=== PATIENT | female | born 1990 | race Caucasian/White ===

== ENCOUNTER 2020-11-17 10:03 | Emergency (ER) | payer OTHER, SELFPAY ==
[2020-11-17 10:11] VITALS: BP 117/81; PULSE 113; RESP 16; TEMP 36.4; O2SAT 96; BMI 23.0
--- NOTE | 2020-11-17 10:19 | PC.NURSE ---
Per patient's boyfriend pt looked to be having a seizure this AM. had convulsions afterwards. states pt seemed slightly confused.
--- NOTE | 2020-11-17 10:26 | CT_ITS ---
EXAMINATION: HEAD CT AND CERVICAL SPINE CT WITHOUT CONTRAST CLINICAL INFORMATION: Seizure. Headache. Neck pain. Evaluate for bleed, fracture or mass. COMPARISON: None TECHNIQUE: Axial images through the brain and cervical spine without contrast. Sagittal and coronal reconstructions on the technologist workstation were performed. Patient dose 630+340 mgy/cm. FINDINGS: Head CT: There is no evidence of an extra-axial collection. There is no evidence of intra-axial or extra-axial hemorrhage. Ventricles and extra-axial CSF spaces are appropriate. Rose-white matter differentiation is normal. No mass, mass effect or infarct is seen. Review at bone windows is normal. No skull fracture is seen. Visualized paranasal sinuses, mastoid air cells and middle ears are clear. Cervical spine: There is head tilt to the left, curvature of the mid cervical spine to the right and proximal thoracic spine to the left. Bone alignment is otherwise normal. No fracture or dislocation is seen. 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 Disc spaces are otherwise normal. Prevertebral soft tissues are normal. Visualized apices are clear. CT/CT head/brain wo con IMPRESSION: Head CT: Unremarkable exam. Cervical spine CT: Curvature of the cervical and thoracic spine. 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 No fracture or dislocation seen.
--- NOTE | 2020-11-17 10:26 | CT_ITS ---
EXAMINATION: HEAD CT AND CERVICAL SPINE CT WITHOUT CONTRAST CLINICAL INFORMATION: Seizure. Headache. Neck pain. Evaluate for bleed, fracture or mass. COMPARISON: None TECHNIQUE: Axial images through the brain and cervical spine without contrast. Sagittal and coronal reconstructions on the technologist workstation were performed. Patient dose 630+340 mgy/cm. FINDINGS: Head CT: There is no evidence of an extra-axial collection. There is no evidence of intra-axial or extra-axial hemorrhage. Ventricles and extra-axial CSF spaces are appropriate. Rose-white matter differentiation is normal. No mass, mass effect or infarct is seen. Review at bone windows is normal. No skull fracture is seen. Visualized paranasal sinuses, mastoid air cells and middle ears are clear. Cervical spine: There is head tilt to the left, curvature of the mid cervical spine to the right and proximal thoracic spine to the left. Bone alignment is otherwise normal. No fracture or dislocation is seen. 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 Disc spaces are otherwise normal. Prevertebral soft tissues are normal. Visualized apices are clear. CT/CT cervical spine wo con IMPRESSION: Head CT: Unremarkable exam. Cervical spine CT: Curvature of the cervical and thoracic spine. 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 No fracture or dislocation seen.
--- NOTE | 2020-11-17 10:29 | ECG_ITS ---
Test Reason : WEAKNESS Blood Pressure : / mmHG Vent. Rate : 088 BPM Atrial Rate : 088 BPM P-R Int : 114 ms QRS Dur : 090 ms QT Int : 374 ms P-R-T Axes : 062 012 022 degrees QTc Int : 452 ms Normal sinus rhythm Normal ECG When compared with ECG of 16-APR-2018 15:40, Premature ventricular complexes are no longer Present Referred By: Abraham Alvarado Electronically Signed By:Nain Light
--- NOTE | 2020-11-17 10:30 | ED.GENADULT ---
HPI - General Adult General Chief complaint: Seizure Stated complaint: seizures Time Seen by Provider: 11/17/20 10:13 Source: patient and other (Boyfriend, Oumar) Mode of arrival: ambulatory Limitations: no limitations History of Present Illness HPI narrative: 30-year-old female who presents to the emergency department for evaluation of possible 2 seizures at home. The patient's boyfriend states that last night the patient was feeling very cold and wrapped herself up and heating blanket. He states that this morning he believes that she had a ?seizure fit ?which lasted approximately 30 seconds. She then got up and complained of a headache. She states that she has a pressure-like sensation in the back her head which is moderate in intensity. She states that she has had similar headaches in the past. She felt sick to her stomach and went to the bathroom. She was sitting on the bathroom floor and believes that she may have vomited. Her boyfriend states that he found her on the floor, unconscious shaking uncontrollably. He states that this shaking episode lasted approximately 30 seconds. The patient states she does have a seizure disorder but has not been taking medications for over a year. She cannot recall when she had her last seizure. The patient states that she was feeling ill last week and did have a negative COVID test 4 days prior. She denied fever, chills, cough, dyspnea on exertion, shortness of breaths, myalgias, arthralgias, diarrhea, numbness or weakness. She states she is currently having headache which is mild to moderate intensity and chest discomfort which she describes as a pressure sensation which is constant, [id number] in intensity. Related Data Previous Rx's Medication Instructions Recorded topiramate [Topamax] 50 mg PO BEDTIME 30 Days #30 tab 11/17/20 Allergies Allergy/AdvReac Type Severity Reaction Status Date / Time amoxicillin [AMOXICILLIN] Allergy Unknown HIVES Unverified 08/18/20 16:15 Review of Systems Review of Systems: Yes all other systems are reviewed and are negative Constitutional: Constitutional: Reports as per HPI Eyes: Eyes: Reports as per HPI ENT: Reports as per HPI Cardiovascular: Cardiovascular: Reports as per HPI Respiratory: Respiratory: Reports as per HPI Gastrointestinal: Gastrointestinal: Reports as per HPI Genitourinary: Genitourinary: Reports as per HPI Musculoskeletal: Musculoskeletal: Reports as per HPI Integumentary/Breasts: Skin/Breast: Reports as per HPI Neurologic: Reports as per HPI and Reports Abnormal speech present Psychiatric: Psychiatric: Reports as per HPI Allergic/Immunologic: Allergic/Immunologic: Reports as per HPI [facility] Past Medical History Attestation statement: The following information was validated with the patient. [facility] Narrative: The patient is allergic to amoxicillin, she does smoke cigarettes, she denies alcohol and drug use. Medical History Epilepsy Social History Social History Alcohol intake: never Smoking Status: Never smoker Use of substances other than those prescribed or required for medical reasons: No Advance Directives: No Advance Directives Information Provided: No Physical Exam Vital Signs: Vital Signs: Last Vital Signs Temp 97.6 F 11/17/20 10:11 Pulse 113 H 11/17/20 10:11 Resp 16 11/17/20 10:11 BP 117/81 11/17/20 10:11 Pulse Ox 96 11/17/20 10:11 Body Mass Index 23.0 Const: General: cooperative and healthy appearing Nutritional Appearance: average body habitus Orientation/consciousness: oriented to person and oriented to place Limitations: no limitations HENMT: Head: Yes normal to inspection, Yes normocephalic and Yes occipital foramen tenderness Ears: external ears normal General nose exam: Normal external nose present Face and sinus: Yes normal facial exam Mouth: Normal oral and palatal mucosa present Throat: Yes posterior oropharynx normal Eyes: General: appearance normal, both eyes and all related structures Alignment and Position: alignment normal Periorbital: periorbital findings normal Eyelids: Yes eyelids normal Conjunctivae: conjunctivae normal Sclerae: sclerae normal Pupils: Equal, round and reactive pupils present Direct Ophthalmoscopy: normal light reflex Neck: Neck: Yes normal visual inspection and Yes supple Thyroid: Thyroid normal Chest: Chest palpation & inspection: normal inspection of the chest and tenderness sternum (Moderate) Resp: Effort & Inspection: normal respiratory effort and able to speak in complete sentences Auscultation: clear to auscultation bilaterally, no crackles, no rales and no rhonchi Cardio: Rate: regular rate Rhythm: regular rhythm Heart sounds: S1 normal heart sound present, S2 normal heart sound present and no murmurs GI: Inspection: Yes normal to inspection Palpation (GI): Soft to palpation, nontender and no guarding Auscultation: normal bowel sounds : General: Yes no CVA tenderness Back/Spine/Pelvis: Back: no CVA tenderness Cervical Spine: normal cervical lordosis Thoracic/Lumbar Spine: thoracic and lumbar spine normal to inspection Skin: General skin exam: no rashes or lesions noted Lesions: no lesions Rashes: no rashes Trauma: no lacerations or abrasions Neuro: General: oriented to person and oriented to place Cranial nerves: Yes CN's II-XII intact bilaterally and Yes Equal, round and reactive pupils present Cognition (Neuro): normal cognition Speech: Abnormal speech present Motor exam (neuro): 5/5 motor strength present throughout Extrem: Right upper extremity: normal to inspection and full ROM Psych: Appearance: grossly normal and well kempt Mental Status: mental status grossly normal Speech and movement: Normal speech and movement present Affect: normal affect Attitude: cooperative Thought process: Normal thought process present Thought content: Normal thought content present Insight: Good insight present (Psych) Judgement: Good judgement present (Psych) Course Course Course Narrative: 30-year-old female who presents to the emergency department for evaluation of possible 2 seizures at home, nausea with vomiting x1, headache, neck pain and chest pain. Physical examination did reveal tenderness with palpation of the patient's occiput and cervical spine as well as tenderness to palpation or chest. Her neurologic exam is nonfocal. The patient may have had 2 seizures at home based on her boyfriend's description and she does have a known seizure disorder but is not taking medications. I did order a workup to include CBC, CMP, UA, EKG, CT of the head and cervical spine. I also obtained a 12 lead EKG on this patient. Patient was given Ativan 1 mg IV to try to prevent further seizures. She is also given Tylenol 975 mg orally for her headache and chest pain. Patient will also be treated with normal saline x1 L. 1154: The patient's laboratory evaluation was unremarkable. CT scan of the head and neck revealed no abnormalities. The patient is feeling better. The patient states that she was being treated by our neurologist, Dr. Matias with Topamax 50 mg at night for her seizure disorder but she has been off this medication for at least 1 year. Concerned the patient may have had 2 seizures today therefore will be prescribed this medication for her. The patient does not have a PCP and she will be referred to the on-call PCP. She was advised also to follow-up with her neurologist for evaluation. She was given printed instructions on seizures. She was advised to return emergency department if her symptoms get worse or if she feels any symptoms that are concerning to her. Medical Decision Making Lab Data Result diagrams: 11/17/20 10:52 11/17/20 10:52 Labs: Lab Results 11/17/20 11/17/20 Range/Units 10:52 10:52 WBC 9.4 (4.8-10.8) X10*3/uL RBC 4.87 (4.20-5.50) X10*6/uL Hgb 14.6 (12.0-16.0) g/dl Hct 42.5 (37-47) % MCV 87.3 (80-98) fL MCH 30.0 (27.0-33.0) pg MCHC 34.4 (31.0-35.0) g/dl RDW 12.2 (11.0-16.0) % Plt Count 232 (160-400) X10*3/uL MPV 10.5 (9.4-12.3) fL Immature Gran % (Auto) 0.3 (0.0-0.4) % Neut % (Auto) 80.8 H (45-73) % Lymph % (Auto) 11.8 L (20-40) % [place] % (Auto) 5.6 (2-11) % Eos % (Auto) 1.0 (0-4) % Baso % (Auto) 0.5 (0-2) % Lymph # (Auto) 1.1 L (1.2-4.9) X10*3/uL [place] # (Auto) 0.5 (0.1-1.2) X10*3/uL Eos # (Auto) 0.1 (0.0-0.4) X10*3/uL Baso # (Auto) 0.1 (0.0-0.2) X10*3/uL Abs Immat Gran (auto) 0.03 (0.00-0.03) X10*3/uL Absolute Neuts (auto) 7.6 (2.0-8.3) X10*3/uL Absolute Nucleated RBC 0.000 (0.0-0.012) X10*3/uL Nucleated RBC % (auto) 0.0 (0.0-0.2) /100WBC Sodium 137 (135-145) mmol/L Potassium 3.6 (3.3-5.1) mmol/l Chloride 104 (96-108) mmol/L Carbon Dioxide 26 (22-29) mmol/L Anion Gap 11 L (12-20) BUN 9 (9-16) mg/dL Creatinine 0.72 (0.5-1.4) mg/dL Estim Creat Clear Calc 93.6 Estimated GFR > 60 Random Glucose 108 (60-115) mg/dL Calcium 8.6 (8.4-10.2) mg/dL Total Bilirubin 0.5 (0.0-1.0) mg/dL AST 10 (5-31) U/L ALT 8 (0-31) U/L Alkaline Phosphatase 73 (39-117) U/L Total Protein 6.3 L (6.5-8.0) g/dL Albumin 3.9 (3.5-5.0) g/dL ECG Data Attestation: I personally reviewed and interpreted this ECG as follows: Prior ECG tracings: not available for review Interpretation: EKG time 10:29 a.m., normal sinus rhythm with a rate of 88, normal NV, QRS and QTC intervals, inverted T-wave in lead 3, no ST segment elevation, no ST segment depression, no old EKG for comparison, this is a normal EKG. Discharge Plan Discharge Clinical Impression: Epileptic seizure Qualifiers: Epilepsy type: generalized idiopathic Intractability: not intractable Status epilepticus: without status epilepticus Qualified Code(s): G40.309 - Generalized idiopathic epilepsy and epileptic syndromes, not intractable, without status epilepticus Vomiting Qualifiers: Vomiting type: unspecified Vomiting Intractability: non-intractable Nausea presence: with nausea Qualified Code(s): R11.2 - Nausea with vomiting, unspecified Patient Disposition: Home, Self-Care Instructions: Epilepsy (ED) Additional Instructions: Your blood work today was normal. Your CT scan of your head was normal. Your CT scan of the neck revealed no fractures or broken bones. I am concerned that you may have had 2 seizures today and you need to restart your anti seizure medications. I am starting you back on Topamax 50 mg at night. You need to follow-up with your neurologist, Dr. Matias for re-evaluation to determine if you need to be on a higher dose of Topamax. Also , you should follow up with our medical provider on-call within 2-3 days for re-evaluation. Please return to the emergency department if your symptoms get worse or if you develop any new symptoms that are concerning to you. Prescriptions: New topiramate [Topamax] 50 mg tablet 50 mg PO BEDTIME 30 Days Qty: 30 RF: 0 Referrals: Whit Marrero MD [Physician] - 2 days (Off Topamax for 1 year, two possible seizures today, workup negative, restarted Topamax 50 mg at night) Eric Alarcon MD [Physician] - 2 days
[2020-11-17 10:57] LABS: MANUAL DIFF FLAG NO
[2020-11-17] MEDS: Acetaminophen 325 MG TABLET 975 MG PO (10:57)
[2020-11-17] MEDS: LORazepam 2 MG/ML VIAL 1 MG IVPUSH (10:57)
[2020-11-17] MEDS: 0.9 % Sodium Chloride 1,000 ML 999 ML IV (10:57)
[2020-11-17 10:58] LABS: Basophils Absolute Auto 0.1 X10*3/uL (0.0-0.2); Basophils Percent Auto 0.5 % (0-2); Eosinophils Absolute Auto 0.1 X10*3/uL (0.0-0.4); Hematocrit 42.5 % (37-47); Hemoglobin 14.6 g/dl (12.0-16.0); Imm Gran Abs Auto 0.03 X10*3/uL (0.00-0.03); Imm Gran Pct Auto 0.3 % (0.0-0.4); Lymphocytes Absolute Auto 1.1 X10*3/uL (1.2-4.9); Lymphocytes Percent Auto 11.8 % (20-40); Mean Corpuscular HGB Conc 34.4 g/dl (31.0-35.0); Mean Corpuscular Volume 87.3 fL (80-98); Mean Platelet Volume 10.5 fL (9.4-12.3); Monocytes Absolute Auto 0.5 X10*3/uL (0.1-1.2); Monocytes Percent Auto 5.6 % (2-11); Neutrophils Absolute Auto 7.6 X10*3/uL (2.0-8.3); Neutrophils Percent Auto 80.8 % (45-73); Platelet Count 232 X10*3/uL (160-400); Red Blood Count 4.87 X10*6/uL (4.20-5.50); Red Cell Distribution Width 12.2 % (11.0-16.0); White Blood Count 9.4 X10*3/uL (4.8-10.8)
[2020-11-17 11:26] LABS: Alanine Aminotransferase 8 U/L (0-31); Albumin Level 3.9 g/dL (3.5-5.0); Alkaline Phosphatase 73 U/L (39-117); Anion Gap 11 (12-20); Aspartate Amino Transferase 10 U/L (5-31); Bilirubin Total 0.5 mg/dL (0.0-1.0); Blood Urea Nitrogen 9 mg/dL (9-16); Calcium 8.6 mg/dL (8.4-10.2); Carbon Dioxide 26 mmol/L (22-29); Chloride 104 mmol/L (96-108); Creatinine Clr Calc Pharmacy 93.6; Estimated Glomerular Filt Rate > 60; Glucose Random 108 mg/dL (60-115); Potassium 3.6 mmol/l (3.3-5.1); Sodium 137 mmol/L (135-145); Total Protein 6.3 g/dL (6.5-8.0)
== END 2020-11-17 12:20 | disposition home or self-care (01) ==
PROVIDERS: Emergency Provider Emergency Medicine Emergency Medical Services
DX: G40.309 Generalized idiopathic epilepsy and epileptic syndromes, not intractable, without status epilepticus (principal); R11.2 Nausea with vomiting, unspecified
CPT/HCPCS: 36415; 70450; 72125; 80053; 85025; 93005; 96361; 96374; 99283; 99284; J2060

== ENCOUNTER 2021-03-22 08:03 | Emergency (ER) | payer OTHER, SELFPAY ==
--- NOTE | ~2021-03-22 | CT_ITS ---
EXAMINATION: UNREMARKABLE CHEST EXAM. CLINICAL INFORMATION: Headache. Chest discomfort. COMPARISON: CT brain 11/17/2020 TECHNIQUE: 5 mm thin axial and reformatted 2 mm thin sagittal and coronal images of brain were obtained without contrast. DLP 545 FINDINGS: Brain: There is no acute intra-axial, extra-axial bleed, masses or midline shift. There is no acute infarction in evolution. The lateral ventricles are symmetrical in size and configuration without enlargement. The ronquillo to white matter differentiation is maintained normal. Bone windows reveal no calvarial abnormality. There is no scalp soft tissue abnormality. Bilateral paranasal sinuses and mastoid air cells are well-aerated. Chest x-ray: The lungs are hyperinflated but clear of acute process. The heart size and pulmonary vascularity is normal. No gross bony abnormality seen..] CT/CT head/brain wo con IMPRESSION: No acute intracranial process seen. Unremarkable chest exam.
[2021-03-22 08:21] VITALS: BP 129/76; PULSE 80; RESP 16; TEMP 36.6; O2SAT 98; BMI 23.3
--- NOTE | 2021-03-22 09:29 | ECG_ITS ---
Test Reason : HEADACHE Blood Pressure : / mmHG Vent. Rate : 079 BPM Atrial Rate : 079 BPM P-R Int : 104 ms QRS Dur : 086 ms QT Int : 364 ms P-R-T Axes : 056 032 043 degrees QTc Int : 417 ms Sinus rhythm with short NC Otherwise normal ECG When compared with ECG of 17-NOV-2020 10:29, No significant change was found Referred By: Alexandra Bryan Electronically Signed By:Nain Light
[2021-03-22 10:13] LABS: MANUAL DIFF FLAG NO
[2021-03-22 10:15] LABS: Basophils Absolute Auto 0.1 X10*3/uL (0.0-0.2); Basophils Percent Auto 0.8 % (0-2); Eosinophils Absolute Auto 0.1 X10*3/uL (0.0-0.4); Eosinophils Percent Auto 1.9 % (0-4); Hematocrit 47.7 % (37-47); Hemoglobin 15.8 g/dl (12.0-16.0); Imm Gran Abs Auto 0.02 X10*3/uL (0.00-0.03); Imm Gran Pct Auto 0.3 % (0.0-0.4); Lymphocytes Absolute Auto 1.8 X10*3/uL (1.2-4.9); Lymphocytes Percent Auto 23.6 % (20-40); Mean Corpuscular HGB Conc 33.1 g/dl (31.0-35.0); Mean Corpuscular Hemoglobin 29.6 pg (27.0-33.0); Mean Corpuscular Volume 89.5 fL (80-98); Mean Platelet Volume 11.3 fL (9.4-12.3); Monocytes Absolute Auto 0.7 X10*3/uL (0.1-1.2); Neutrophils Absolute Auto 4.8 X10*3/uL (2.0-8.3); Neutrophils Percent Auto 64.4 % (45-73); Platelet Count 258 X10*3/uL (160-400); Red Blood Count 5.33 X10*6/uL (4.20-5.50); Red Cell Distribution Width 12.2 % (11.0-16.0); White Blood Count 7.5 X10*3/uL (4.8-10.8)
[2021-03-22] MEDS: Butalb/Acetamin/Caff 50/325/40 TABLET 2 TAB PO (10:19)
[2021-03-22 10:31] LABS: INTERNATIONAL NORM RATIO 0.9 (0.9-1.1); Prothrombin Time 10.9 SEC (10.8-13.0)
[2021-03-22 10:34] LABS: D Dimer 223 NG/ML
--- NOTE | 2021-03-22 10:36 | PC.NURSE ---
EKG COMPLETED, IMAGING COMPLETED, BLOOD LABS OBTAINED AND SENT. MEDICATED PER EMAR, TOLERATING PO W/O ISSUE. LIGHTS TURNED DOWN D/T REPORTED PHOTOPHOBIA. PT IN NAD.
--- NOTE | 2021-03-22 10:47 | ED_ITS ---
HPI - General Adult General Chief complaint: General Medical Stated complaint: sinus pain Time Seen by Provider: 03/22/21 08:51 Source: patient Mode of arrival: ambulatory Limitations: no limitations Related Data Previous Rx's Medication Instructions Recorded topiramate [Topamax] 50 mg PO BEDTIME 30 Days #30 tab 11/17/20 Allergies Allergy/AdvReac Type Severity Reaction Status Date / Time amoxicillin [AMOXICILLIN] Allergy Unknown HIVES Verified 03/22/21 08:28 [facility] Past Medical History Medical History Epilepsy Social History Social History Alcohol intake: never Smoking Status: Never smoker Advance Directives: Yes Advance Directives Information Provided: No Advance Directives on File: No Physical Exam Vital Signs: Vital Signs: Last Vital Signs Temp 98 F 03/22/21 08:21 Pulse 80 03/22/21 08:21 Resp 16 03/22/21 08:21 BP 129/76 03/22/21 08:21 Pulse Ox 98 03/22/21 08:21 Body Mass Index 23.3 Medical Decision Making Lab Data Result diagrams: 03/22/21 10:06 03/22/21 10:06 Labs: Lab Results 03/22/21 03/22/21 03/22/21 Range/Units 10:05 10:06 10:06 WBC 7.5 (4.8-10.8) X10*3/uL RBC 5.33 (4.20-5.50) X10*6/uL Hgb 15.8 (12.0-16.0) g/dl Hct 47.7 H (37-47) % MCV 89.5 (80-98) fL MCH 29.6 (27.0-33.0) pg MCHC 33.1 (31.0-35.0) g/dl RDW 12.2 (11.0-16.0) % Plt Count 258 (160-400) X10*3/uL MPV 11.3 (9.4-12.3) fL Immature Gran % (Auto) 0.3 (0.0-0.4) % Neut % (Auto) 64.4 (45-73) % Lymph % (Auto) 23.6 (20-40) % [place] % (Auto) 9.0 (2-11) % Eos % (Auto) 1.9 (0-4) % Baso % (Auto) 0.8 (0-2) % Lymph # (Auto) 1.8 (1.2-4.9) X10*3/uL [place] # (Auto) 0.7 (0.1-1.2) X10*3/uL Eos # (Auto) 0.1 (0.0-0.4) X10*3/uL Baso # (Auto) 0.1 (0.0-0.2) X10*3/uL Abs Immat Gran (auto) 0.02 (0.00-0.03) X10*3/uL Absolute Neuts (auto) 4.8 (2.0-8.3) X10*3/uL Absolute Nucleated RBC 0.000 (0.0-0.012) X10*3/uL Nucleated RBC % (auto) 0.0 (0.0-0.2) /100WBC PT 10.9 (10.8-13.0) SEC INR 0.9 (0.9-1.1) D-Dimer 223 NG/ML Discharge Plan Discharge Prescriptions: No Action topiramate [Topamax] 50 mg tablet 50 mg PO BEDTIME 30 Days Qty: 30 RF: 0
[2021-03-22 10:50] LABS: Magnesium 2.2 mg/dL (1.6-2.6)
[2021-03-22 10:50] LABS: Alanine Aminotransferase 11 U/L (0-31); Albumin Level 4.3 g/dL (3.5-5.0); Alkaline Phosphatase 74 U/L (39-117); Anion Gap 16 (12-20); Aspartate Amino Transferase 11 U/L (5-31); Bilirubin Total 0.5 mg/dL (0.0-1.0); Blood Urea Nitrogen 11 mg/dL (9-16); Calcium 9.5 mg/dL (8.4-10.2); Carbon Dioxide 23 mmol/L (22-29); Chloride 105 mmol/L (96-108); Creatinine Clr Calc Pharmacy 89.9; Estimated Glomerular Filt Rate > 60; Glucose Fasting 88 mg/dL (60-99); Potassium 4.7 mmol/L (3.3-5.1); Sodium 139 mmol/L (135-145); Total Protein 6.9 g/dL (6.5-8.0)
[2021-03-22 10:53] LABS: Influenza A PCR NEGATIVE (Negative); Influenza B PCR NEGATIVE (Negative); Resp Syncy Virus RNA Qual PCR NEGATIVE (Negative); SARS COV2 PCR INHOUSE NEGATIVE (Negative)
[2021-03-22 10:57] LABS: Troponin-I High Sensitivity < 3.5 ng/L (<3.5-17.0)
--- NOTE | 2021-03-22 11:31 | ED_ITS ---
HPI - URI/Sore Throat General Chief Complaint: General Medical Stated Complaint: sinus pain Time Seen by Provider: 03/22/21 08:51 Source: patient Mode of arrival: ambulatory Limitations: no limitations History of Present Illness HPI Narrative: 31-year-old female presenting to the ED with complaints of persistent headache since with associated nasal congestion green colored thick mucus and bilateral ear pain worse today. Reports that she has been taking multiple niaq-iob-vmhysdc medication no symptomatic relief. Reports that she receive the Bradley and Popularo: Vaccine on 03/08/2021. Patient reports that she was seen at a [facility] on Saturday and they tested her for COVID and did not give her any antibiotics or symptomatic treatment. She reports she has a chronic history of migraine headaches and sinus infections. Reports she is usually prescribed prednisone tapers. Denies any recent travel or sick contacts. Denies any fevers, dizziness, lightheadedness, changes in vision, neck pain/stiffness, chest pain, shortness of breath, dyspnea on exertion, orthopnea, lower extremity edema, calf tenderness, nausea/vomiting, abdominal pain, diarrhea, black or bloody stools, back pain or any other symptoms complaints or concerns at this time. MD elicited complaint: rhinorrhea, nasal congestion and sinus pain Onset (ago): day(s) (Six days worse today) Consistency: constant and progressively worsening Severity: moderate Description of mucous: green (thick) Able to tolerate fluids by mouth: Yes Exacerbating factors: nothing and leaning forward Relieving factors: nothing Associated symptoms: rhinorrhea, nasal congestion and ear pain Treatments prior to arrival: other (Patient has tried multiple lqvq-vic-inqytxo medications and no symptomatic relief) Related Data Previous Rx's Medication Instructions Recorded topiramate [Topamax] 50 mg PO BEDTIME 30 Days #30 tab 11/17/20 cuyiufuprw-kbmmsuoaow-pdx-cod 1 cap PO Q4H PRN #14 cap 03/22/21 [Fioricet with Codeine] levofloxacin 750 mg PO DAILY 7 Days #7 tab 03/22/21 prednisone 10 mg PO DAILY #60 tab 03/22/21 Allergies Allergy/AdvReac Type Severity Reaction Status Date / Time amoxicillin [AMOXICILLIN] Allergy Unknown HIVES Verified 03/22/21 08:28 Review of Systems Review of Systems: Constitutional : No changes in activity, No lethargy, No recent prior head injury, No agitation, No increased fussiness ENT/Mouth : + Ear Pain, + Nasal discharge/drainage, + Sinus Pain Eyes: No Eye Pain, No Swelling, No Redness, No Foreign Body, No Vision Changes Cardiovascular : No Chest Pain, No SOB Respiratory : No Cough Gastrointestinal : No Nausea, No Vomiting, No abdominal Pain Genitourinary : No Dysuria, No Urinary Frequency, No Urinary Incontinence, No Urgency, No Flank Pain Musculoskeletal : No joint pain, No neck stiffness, No back pain/injury Skin : No lacerations Neuro : No unsteady gait, No Paresthesias, No Loss of Consciousness, No altered mental status, No dizziness, + Headache Denies past medical history of HIV, recent trauma, coagulopathy, recent spinal/ epidural procedure, new medication, URI symptoms, close contacts with similar symptoms, tick bite, or known CO2 exposure. Yes all other systems are reviewed and are negative [facility] Past Medical History Attestation statement: The following information was validated with the patient. Medical History Epilepsy Social History Social History Alcohol intake: never Smoking Status: Never smoker Advance Directives: Yes Advance Directives Information Provided: No Advance Directives on File: No Physical Exam Vital Signs: Vital Signs: Last Vital Signs Temp 98 F 03/22/21 08:21 Pulse 80 03/22/21 08:21 Resp 16 03/22/21 08:21 BP 129/76 03/22/21 08:21 Pulse Ox 98 03/22/21 08:21 Body Mass Index 23.3 vital signs have been reviewed as normal and appeared to be correct. Blood pressure normal. Heart rate normal. Respiration rate normal. Temperature normal. Oxygen saturation normal. Appearance: Alert. Oriented X3. No acute distress. Head: Normal external exam. Normocephalic. Atraumatic. Able to rotate head bilaterally. Eyes: PERRLA. EOMI. No nystagmus noted. Conjunctiva and sclera normal. Eyelids normal. Corneal reflex normal. ENT: EAC normal. TM's Normal. Hearing normal. Pharynx normal. Uvula midline. tongue midline. Moist mucous membranes. No trismus noted. No drooling noted. No muffled voice noted. Neck: Normal inspection. Neck supple. FROM. No adenopathy. Thyroid Normal. No meningeal signs. No neck mass noted. CVS: Normal heart rate and rhythm. Heart sound normal. No murmurs noted. Pulses normal throughout. Respiratory: No respiratory distress. Painless inspiration. Breath sounds normal. No wheezes/rales/rhonchi noted. Chest nontender. No accessory muscle usage noted or decreased air movement noted. Back: Full range of motion noted. Skin: Skin warm and dry. Normal skin color. Normal skin turgor. No rashes/lesions/lacerations noted. Extremities: Extremities exhibit normal range of motion. Extremities nontender. Able to shrug shoulders bilaterally and keep up against resistance. Neuro: Oriented X 3. No motor deficit. No sensory deficit. Reflexes normal. Moving all extremities. No focal motor deficits. Cranial nerves II-XI intact bilaterally. Facial strength normal. Normal cognition. Speech normal. Gait normal. Strength 5/5 throughout. No pronator drift. No tremor noted. No fasciculations noted. Muscle tone normal throughout. No asterixis noted. Waiweo-hr-gxpc test normal. Heel to koenig test normal. Tandem gait normal. Does not sway with eyes open. Romberg test negative. Rapid alternating movement upper extremity normal. Rapid alternating movement lower extremity normal. Hand drop from overhead-Mrs. face. No rigidity noted. NIHSS score 0. Course Course Course Narrative: 31-year-old female with a past medical history of epilepsy, sinus infections and migraine headaches who recently received the Bradley and Bradley vaccine on 03/08/2021 presenting to the ED with complaints of frontal headache that she reports as pressure in sensation with associated green thick nasal congestion with bilateral ear pain since for the past 6 days worse today. Reports that she was seen at [facility] and was tested for COVID although does not know results and was not given any antibiotics or any other treatment. - on exam patient is alert and oriented x3. Not in any acute distress. No focal neuro deficits are noted. Patient has tenderness to palpation to sinuses. Tympanic membranes are within normal limits no signs of infection. External ear canals within normal limits no signs of infection. NIHSS score 0. Abdomen is soft and nontender. Lungs clear to auscultation. CV RRR. No lower extremity edema or calf tenderness bilaterally noted. - labs obtained including D-dimer and all negative for any acute processes. Patient negative for COVID/RSV/flu. Chest x-ray and CT scan of brain within nor mal limits no acute processes are noted. EKG was sinus rhythm with short TN interval with a ventricular rate of 79 with a normal QRS duration normal QT/QTC interval. No acute ischemic changes are noted. Similar when compared to prior EKG on 11/17/2020. - I did consider sinus venous thrombosis due to the patient's recent Bradley and Bradley vaccine although patient's D-dimer is negative and she reports green thick nasal discharge therefore less consistent with sinus venous thrombosis and more consistent with sinusitis infection therefore with a negative D-dimer patient is able to be discharged with treatment for sinus headache/sinusitis. - will DC home with antibiotics and symptomatic treatment for sinus headache/sinusitis. And instructions to return if any new or worsening symptoms to follow up with primary care provider. Patient understands agrees with this plan. MDM - URI/Sore Throat Medical Records Attestation: I reviewed the patient's medical records. Lab Data Attestation: I reviewed the patient's lab results. Result diagrams: 03/22/21 10:06 03/22/21 10:06 Labs: Lab Results 03/22/21 03/22/21 03/22/21 Range/Units 10:05 10:05 10:05 WBC (4.8-10.8) X10*3/uL RBC (4.20-5.50) X10*6/uL Hgb (12.0-16.0) g/dl Hct (37-47) % MCV (80-98) fL MCH (27.0-33.0) pg MCHC (31.0-35.0) g/dl RDW (11.0-16.0) % Plt Count (160-400) X10*3/uL MPV (9.4-12.3) fL Immature Gran % (Auto) (0.0-0.4) % Neut % (Auto) (45-73) % Lymph % (Auto) (20-40) % Harding % (Auto) (2-11) % Eos % (Auto) (0-4) % Baso % (Auto) (0-2) % Lymph # (Auto) (1.2-4.9) X10*3/uL Harding # (Auto) (0.1-1.2) X10*3/uL Eos # (Auto) (0.0-0.4) X10*3/uL Baso # (Auto) (0.0-0.2) X10*3/uL Abs Immat Gran (auto) (0.00-0.03) X10*3/uL Absolute Neuts (auto) (2.0-8.3) X10*3/uL Absolute Nucleated RBC (0.0-0.012) X10*3/uL Nucleated RBC % (auto) (0.0-0.2) /100WBC PT (10.8-13.0) SEC INR (0.9-1.1) D-Dimer 223 NG/ML Sodium (135-145) mmol/L Potassium (3.3-5.1) mmol/L Chloride (96-108) mmol/L Carbon Dioxide (22-29) mmol/L Anion Gap (12-20) BUN (9-16) mg/dL Creatinine (0.5-1.4) mg/dL Estim Creat Clear Calc Estimated GFR Fasting Glucose (60-99) mg/dL Calcium (8.4-10.2) mg/dL Magnesium 2.2 (1.6-2.6) mg/dL Total Bilirubin (0.0-1.0) mg/dL AST (5-31) U/L ALT (0-31) U/L Alkaline Phosphatase (39-117) U/L Troponin I High Sens < 3.5 (<3.5-17.0) ng/L Total Protein (6.5-8.0) g/dL Albumin (3.5-5.0) g/dL Coronavirus (PCR) (Negative) Influenza Type A (PCR) (Negative) Influenza Type B (PCR) (Negative) RSV RNA Qual (PCR) (Negative) 03/22/21 03/22/21 03/22/21 Range/Units 10:06 10:06 10:06 WBC 7.5 (4.8-10.8) X10*3/uL RBC 5.33 (4.20-5.50) X10*6/uL Hgb 15.8 (12.0-16.0) g/dl Hct 47.7 H (37-47) % MCV 89.5 (80-98) fL MCH 29.6 (27.0-33.0) pg MCHC 33.1 (31.0-35.0) g/dl RDW 12.2 (11.0-16.0) % Plt Count 258 (160-400) X10*3/uL MPV 11.3 (9.4-12.3) fL Immature Gran % (Auto) 0.3 (0.0-0.4) % Neut % (Auto) 64.4 (45-73) % Lymph % (Auto) 23.6 (20-40) % Harding % (Auto) 9.0 (2-11) % Eos % (Auto) 1.9 (0-4) % Baso % (Auto) 0.8 (0-2) % Lymph # (Auto) 1.8 (1.2-4.9) X10*3/uL Harding # (Auto) 0.7 (0.1-1.2) X10*3/uL Eos # (Auto) 0.1 (0.0-0.4) X10*3/uL Baso # (Auto) 0.1 (0.0-0.2) X10*3/uL Abs Immat Gran (auto) 0.02 (0.00-0.03) X10*3/uL Absolute Neuts (auto) 4.8 (2.0-8.3) X10*3/uL Absolute Nucleated RBC 0.000 (0.0-0.012) X10*3/uL Nucleated RBC % (auto) 0.0 (0.0-0.2) /100WBC PT 10.9 (10.8-13.0) SEC INR 0.9 (0.9-1.1) D-Dimer NG/ML Sodium 139 (135-145) mmol/L Potassium 4.7 (3.3-5.1) mmol/L Chloride 105 (96-108) mmol/L Carbon Dioxide 23 (22-29) mmol/L Anion Gap 16 (12-20) BUN 11 (9-16) mg/dL Creatinine 0.71 (0.5-1.4) mg/dL Estim Creat Clear Calc 89.9 Estimated GFR > 60 Fasting Glucose 88 (60-99) mg/dL Calcium 9.5 D (8.4-10.2) mg/dL Magnesium (1.6-2.6) mg/dL Total Bilirubin 0.5 (0.0-1.0) mg/dL AST 11 (5-31) U/L ALT 11 (0-31) U/L Alkaline Phosphatase 74 (39-117) U/L Troponin I High Sens (<3.5-17.0) ng/L Total Protein 6.9 (6.5-8.0) g/dL Albumin 4.3 (3.5-5.0) g/dL Coronavirus (PCR) (Negative) Influenza Type A (PCR) (Negative) Influenza Type B (PCR) (Negative) RSV RNA Qual (PCR) (Negative) 03/22/21 Range/Units 10:08 WBC (4.8-10.8) X10*3/uL RBC (4.20-5.50) X10*6/uL Hgb (12.0-16.0) g/dl Hct (37-47) % MCV (80-98) fL MCH (27.0-33.0) pg MCHC (31.0-35.0) g/dl RDW (11.0-16.0) % Plt Count (160-400) X10*3/uL MPV (9.4-12.3) fL Immature Gran % (Auto) (0.0-0.4) % Neut % (Auto) (45-73) % Lymph % (Auto) (20-40) % Harding % (Auto) (2-11) % Eos % (Auto) (0-4) % Baso % (Auto) (0-2) % Lymph # (Auto) (1.2-4.9) X10*3/uL Harding # (Auto) (0.1-1.2) X10*3/uL Eos # (Auto) (0.0-0.4) X10*3/uL Baso # (Auto) (0.0-0.2) X10*3/uL Abs Immat Gran (auto) (0.00-0.03) X10*3/uL Absolute Neuts (auto) (2.0-8.3) X10*3/uL Absolute Nucleated RBC (0.0-0.012) X10*3/uL Nucleated RBC % (auto) (0.0-0.2) /100WBC PT (10.8-13.0) SEC INR (0.9-1.1) D-Dimer NG/ML Sodium (135-145) mmol/L Potassium (3.3-5.1) mmol/L Chloride (96-108) mmol/L Carbon Dioxide (22-29) mmol/L Anion Gap (12-20) BUN (9-16) mg/dL Creatinine (0.5-1.4) mg/dL Estim Creat Clear Calc Estimated GFR Fasting Glucose (60-99) mg/dL Calcium (8.4-10.2) mg/dL Magnesium (1.6-2.6) mg/dL Total Bilirubin (0.0-1.0) mg/dL AST (5-31) U/L ALT (0-31) U/L Alkaline Phosphatase (39-117) U/L Troponin I High Sens (<3.5-17.0) ng/L Total Protein (6.5-8.0) g/dL Albumin (3.5-5.0) g/dL Coronavirus (PCR) NEGATIVE (Negative) Influenza Type A (PCR) NEGATIVE (Negative) Influenza Type B (PCR) NEGATIVE (Negative) RSV RNA Qual (PCR) NEGATIVE (Negative) Imaging Data CT scan of brain/chest x-ray: Radiologist's impression: FINDINGS: Brain: There is no acute intra-axial, extra-axial bleed, masses or midline shift. There is no acute infarction in evolution. The lateral ventricles are symmetrical in size and configuration without enlargement. The ronquillo to white matter differentiation is maintained normal. Bone windows reveal no calvarial abnormality. There is no scalp soft tissue abnormality. Bilateral paranasal sinuses and mastoid air cells are well-aerated. Chest x-ray: The lungs are hyperinflated but clear of acute process. The heart size and pulmonary vascularity is normal. No gross bony abnormality seen..] CT/CT head/brain wo con IMPRESSION: No acute intracranial process seen. Unremarkable chest exam. ECG Data Attestation: I personally reviewed and interpreted this ECG as follows: ECG interpretation date: 03/22/21 ECG interpretation time: 09:53 Interpretation: EKG was sinus rhythm with short TN interval with a ventricular rate of 79 with a normal QRS duration normal QT/QTC interval. No acute ischemic changes are noted. Similar when compared to prior EKG on 11/17/2020. Discharge Plan Discharge Clinical Impression: Sinusitis, Sinus headache Patient Disposition: Home, Self-Care Instructions: Sinusitis (ED) Prescriptions: New levofloxacin 750 mg tablet 750 mg PO DAILY 7 Days Qty: 7 RF: 0 prednisone 10 mg tablet 10 mg PO DAILY Qty: 60 RF: 0 icuihbwcds-twwxbhwori-fiv-cod [Fioricet with Codeine] 66-152-14-30 mg capsule 1 cap PO Q4H PRN (Reason: headache) Qty: 14 RF: 0 No Action topiramate [Topamax] 50 mg tablet 50 mg PO BEDTIME 30 Days Qty: 30 RF: 0 Referrals: Physician,None [Primary Care Provider] - 2 days (Your PCP) Stand Alone Forms: Work/School Release Print Language: Portuguese
== END 2021-03-22 11:55 | disposition home or self-care (01) ==
PROVIDERS: Physician Assistant Medical; Emergency Provider Emergency Medicine
DX: J32.9 Chronic sinusitis, unspecified (principal); R51.9 Headache, unspecified; Z20.822 Contact with and (suspected) exposure to COVID-19
CPT/HCPCS: 0241U; 36415; 70450; 71046; 80053; 83735; 84484; 85025; 85379; 85610; 93005; 99283; 99284

== ENCOUNTER 2021-09-21 12:17 | Emergency (ER) | payer OTHER, SELFPAY ==
--- NOTE | ~2021-09-21 | CT_ITS ---
EXAMINATION: CT ABDOMEN AND PELVIS WITH CONTRAST CLINICAL INFORMATION: Diffuse right lower quadrant pain nausea vomiting diarrhea COMPARISON: 06/19/2019 TECHNIQUE: Multidetector volumetric images were obtained from the superior aspect of the liver through the pubic symphysis following administration 85 mL of Omnipaque 350 intravenous contrast. Sagittal and coronal reformatted images were obtained on the technologist's workstation. Oral contrast: No This CT examination was performed using dose optimization techniques as appropriate, variously including the following: *Automated exposure control *Adjustment of mA and/or kV according to patient size (this includes techniques or standardized protocols for targeted exams where dose is matched to indication/reason for exam; i.e. extremities or head) *Use of iterative reconstruction technique DLP: 353 mGy-cm FINDINGS: LUNG BASES: The visualized lung bases are unremarkable. LIVER, GALLBLADDER, AND BILIARY TREE: Once again there is some density around the portal venous system which may represent an element of periportal edema. Appears slightly more prominent than previous. Small area of nonenhancement in the left lobe measuring 1 cm May be incidental. Not seen previously. May be an evolving cyst. Another small 2 mm area on image 26 Unremarkable gallbladder PANCREAS: Unremarkable. SPLEEN: Unremarkable. ADRENAL GLANDS: Unremarkable. KIDNEYS AND URETERS: Early nephrographic phase. Probable evolving cyst midpole left. BLADDER: Unremarkable. GASTROINTESTINAL TRACT: The bowel pattern is nonobstructing. No free fluid. Region the appendix is similar to previous. Foreshortened. No suspicious soft tissue stranding ABDOMINAL WALL: No significant hernia is appreciated. LYMPH NODES: Again some prominent nodes in the right lower quadrant mesenteric are noted VASCULAR: Unremarkable. PELVIC VISCERA: Unremarkable. OSSEOUS STRUCTURES: Unremarkable. CT/CT abdomen pelvis w con IMPRESSION: There is some persistent fluid around the portal veins throughout the liver and periportal edema would be a consideration. Some small liver lesions are now noted. This may represent evolving cystic change but consider ultrasound for full evaluation. The bowel pattern is nonobstructing. There is no free fluid. Once again some prominent mesenteric nodes most noted in the right lower quadrant adjacent to the ileocecal valve and appendix but no suspicious inflammatory process is suspected here. No fluid collection is suspicious soft tissue stranding.
[2021-09-21 12:53] VITALS: BP 116/81; PULSE 91; RESP 16; TEMP 36.1; O2SAT 96; BMI 23.0
--- NOTE | 2021-09-21 16:38 | ED.ABDPAIN ---
HPI - Abdominal Pain General Chief Complaint: Abdominal Pain Stated Complaint: Abd pain/breast pain Time Seen by Provider: 09/21/21 16:12 Source: patient Mode of arrival: ambulatory History of Present Illness HPI narrative: 31-year-old female with a past medical history of epilepsy presenting to the ED complaining of diffuse abdominal pain radiating to back with associated nausea, vomiting, and diarrhea since this morning. Questionable suspicious food intake. Also reports chills. Denies fever, constipation, dysuria, hematuria, vaginal bleeding, vaginal discharge, recent travel MD elicited complaint: abdominal pain Related Data Previous Rx's Medication Instructions Recorded topiramate 50 mg tablet (Topamax) 50 mg PO BEDTIME 30 Days #30 tab 11/17/20 butalbital 50 mg-acetaminophen 300 1 cap PO Q4H PRN #14 cap 03/22/21 mg-caffeine 40 mg-codeine 30 mg cap (Fioricet with Codeine) levofloxacin 750 mg tablet 750 mg PO DAILY 7 Days #7 tab 03/22/21 prednisone 10 mg tablet 10 mg PO DAILY #60 tab 03/22/21 aluminum-mag hydroxide-simethicone 5 ml PO 5XD PRN #30 ml 09/21/21 200 mg-200 mg-20 mg/5 mL oral susp (Maalox Advanced) dicyclomine 20 mg tablet 20 mg PO QID PRN #20 tab 09/21/21 famotidine 20 mg tablet (Pepcid) 20 mg PO DAILY #14 tab 09/21/21 ondansetron HCl 4 mg tablet 4 mg PO Q8H PRN #10 tab 09/21/21 (Zofran) Allergies Allergy/AdvReac Type Severity Reaction Status Date / Time amoxicillin [AMOXICILLIN] Allergy Unknown HIVES Verified 03/22/21 08:28 Review of Systems Review of Systems Constitutional: No Fever, No Chills, No Fatigue, No Malaise ENT/Mouth: No Ear Pain, No Nasal Congestion, No sore throat, No Rhinorrhea Eyes: No Eye Pain, No Swelling, No Redness, No Discharge Cardiovascular: No Chest Pain, No SOB, No Edema, No Palpitations Respiratory: No Cough, No Sputum, No Dyspnea Gastrointestinal: + Nausea, + Vomiting, + Diarrhea, No Constipation, + Abdominal pain Genitourinary: No irregular bleeding, No Dysuria, No Hematuria, No Urgency, No Flank Pain, No Urinary Flow Changes Musculoskeletal: No joint pain, No Myalgias, No Joint Swelling Skin: No Skin Lesions, No rash Neuro: No Weakness, No Numbness, No Paresthesias, No Dizziness, No Headache Yes all other systems are reviewed and are negative Physical Exam Vital Signs: Vital Signs: Last Vital Signs Temp 98.1 F 09/21/21 19:34 Pulse 75 09/21/21 19:34 Resp 18 09/21/21 19:34 BP 125/82 09/21/21 19:34 Pulse Ox 98 09/21/21 19:34 Body Mass Index 23.0 Const: General: cooperative, healthy appearing, no acute distress, well developed and alert Orientation/consciousness: patient oriented x3 Limitations: no limitations HENMT: Head: Yes normal to inspection Ears: hearing grossly normal bilaterally General nose exam: Normal external nose present Face and sinus: Yes normal facial exam Eyes: General: appearance normal, both eyes and all related structures EOM: EOMs intact bilaterally Neck: Neck: Yes normal visual inspection and Yes no meningeal signs Resp: Effort & Inspection: normal respiratory effort Auscultation: clear to auscultation bilaterally Cardio: Rate: regular rate Heart sounds: S1 normal heart sound present and S2 normal heart sound present GI: Inspection: Yes normal to inspection Palpation (GI): Soft to palpation, Tenderness to palpation present (GI) in the RLQ, no guarding and not rigid : General: Yes CVA tenderness bilateral Back/Spine/Pelvis: Back: CVA tenderness Skin: Rashes: no rashes Wounds: no wounds Neuro: General: patient oriented x3 and no meningeal signs Gait exam (Neuro): Normal gait present Extrem: General: Yes normal to inspection Course Course Course Narrative: -1835--mild leukocytosis of 11.7. Labs otherwise unremarkable -UA with 1+ blood, trace leuk esterase, 5-9 wbc's, and 3+ epithelials, contaminated, will hold on antibiotic treatment at this time due to contamination & patient is asymptomatic CT abdomen pelvis w con IMPRESSION: There is some persistent fluid around the portal veins throughout the liver and periportal edema would be a consideration. Some small liver lesions are now noted. This may represent evolving cystic change but consider ultrasound for full evaluation. ? The bowel pattern is nonobstructing. There is no free fluid. Once again some prominent mesenteric nodes most noted in the right lower quadrant adjacent to the ileocecal valve and appendix but no suspicious inflammatory process is suspected here. No fluid collection is suspicious soft tissue stranding. >> discussed with patient CT findings, recommended liver ultrasound. Patient still reports persistent lower abdominal discomfort, will give Toradol, Maalox, Pepcid, and re-evaluate -on re-evaluation patient reports symptomatic improvement, feels safe for discharge home, discussed need follow-up with GI. MDM - Abdominal Pain MDM Narrative Medical decision making narrative: 31-year-old female with a past medical history of epilepsy presenting to the ED complaining of diffuse abdominal pain radiating to back with associated nausea, vomiting, and diarrhea since this morning. On exam vital signs stable, NAD, nontoxic appearing, abdomen soft with RLQ TTP, and lower abdominal tenderness, bilateral CVAT, no rebound or guarding. Concern for appendicitis vs diverticulitis or colitis vs gastroenteritis vs ? Renal stone or pyelo. Plan: Labs, UA, urine , CT AP, IVF, symptomatic treatment, reassess Medical Records Attestation: I reviewed the patient's medical records. Lab Data Attestation: I reviewed the patient's lab results. Result diagrams: 09/21/21 16:52 09/21/21 16:52 Labs: Lab Results 09/21/21 09/21/21 09/21/21 Range/Units 16:52 16:52 16:53 WBC 11.7 H (4.8-10.8) X10*3/uL RBC 5.01 (4.20-5.50) X10*6/uL Hgb 15.2 (12.0-16.0) g/dl Hct 43.9 (37-47) % MCV 87.6 (80-98) fL MCH 30.3 (27.0-33.0) pg MCHC 34.6 (31.0-35.0) g/dl RDW 12.6 (11.0-16.0) % Plt Count 298 (160-400) X10*3/uL MPV 10.8 (9.4-12.3) fL Immature Gran % (Auto) 0.4 (0.0-0.4) % Neut % (Auto) 72.8 (45-73) % Lymph % (Auto) 17.8 L (20-40) % [place] % (Auto) 7.3 (2-11) % Eos % (Auto) 1.3 (0-4) % Baso % (Auto) 0.4 (0-2) % Lymph # (Auto) 2.1 (1.2-4.9) X10*3/uL [place] # (Auto) 0.9 (0.1-1.2) X10*3/uL Eos # (Auto) 0.2 (0.0-0.4) X10*3/uL Baso # (Auto) 0.1 (0.0-0.2) X10*3/uL Abs Immat Gran (auto) 0.05 H (0.00-0.03) X10*3/uL Absolute Neuts (auto) 8.5 H (2.0-8.3) X10*3/uL Absolute Nucleated RBC 0.000 (0.0-0.012) X10*3/uL Nucleated RBC % (auto) 0.0 (0.0-0.2) /100WBC Sodium 140 (135-145) mmol/L Potassium 4.1 (3.3-5.1) mmol/L Chloride 106 (96-108) mmol/L Carbon Dioxide 26 (22-29) mmol/L Anion Gap 12 (12-20) BUN 13 (9-16) mg/dL Creatinine 0.89 (0.5-1.4) mg/dL Estim Creat Clear Calc 71.7 Estimated GFR > 60 Random Glucose 84 (60-115) mg/dL Calcium 9.7 (8.4-10.2) mg/dL Magnesium 2.3 (1.6-2.6) mg/dL Total Bilirubin 0.5 (0.0-1.0) mg/dL Direct Bilirubin 0.2 (0.0-0.5) mg/dL AST 16 D (5-31) U/L ALT 6 (0-31) U/L Alkaline Phosphatase 79 (39-117) U/L Total Protein 6.6 (6.5-8.0) g/dL Albumin 4.2 (3.5-5.0) g/dL Lipase 19 (8-78) U/L Urine Color YELLOW Urine Appearance HAZY Urine pH 6.0 (5.0-8.0) Ur Specific [place] 1.020 (1.005-1.025) Urine Protein NEG (NEG-TRACE) MG/DL Urine Glucose (UA) NEG (NEG) MG/DL Urine Ketones NEG (NEG) MG/DL Urine Blood 1+ H (NEG) Urine Nitrite NEG (NEG) Ur Leukocyte Esterase TRACE H (NEG) Urine RBC 0-2 (0) /HPF Urine WBC 5-9 H (0-4) /HPF Ur Squamous Epith Cells 3+ /LPF Ur Renal Epithelial Cell 1+ /LPF Urine Bacteria 3+ /LPF Hyaline Casts 0-2 /LPF Urine Mucus 3+ /LPF Urine Test (NEGATIVE) 09/21/21 Range/Units 16:53 WBC (4.8-10.8) X10*3/uL RBC (4.20-5.50) X10*6/uL Hgb (12.0-16.0) g/dl Hct (37-47) % MCV (80-98) fL MCH (27.0-33.0) pg MCHC (31.0-35.0) g/dl RDW (11.0-16.0) % Plt Count (160-400) X10*3/uL MPV (9.4-12.3) fL Immature Gran % (Auto) (0.0-0.4) % Neut % (Auto) (45-73) % Lymph % (Auto) (20-40) % [place] % (Auto) (2-11) % Eos % (Auto) (0-4) % Baso % (Auto) (0-2) % Lymph # (Auto) (1.2-4.9) X10*3/uL [place] # (Auto) (0.1-1.2) X10*3/uL Eos # (Auto) (0.0-0.4) X10*3/uL Baso # (Auto) (0.0-0.2) X10*3/uL Abs Immat Gran (auto) (0.00-0.03) X10*3/uL Absolute Neuts (auto) (2.0-8.3) X10*3/uL Absolute Nucleated RBC (0.0-0.012) X10*3/uL Nucleated RBC % (auto) (0.0-0.2) /100WBC Sodium (135-145) mmol/L Potassium (3.3-5.1) mmol/L Chloride (96-108) mmol/L Carbon Dioxide (22-29) mmol/L Anion Gap (12-20) BUN (9-16) mg/dL Creatinine (0.5-1.4) mg/dL Estim Creat Clear Calc Estimated GFR Random Glucose (60-115) mg/dL Calcium (8.4-10.2) mg/dL Magnesium (1.6-2.6) mg/dL Total Bilirubin (0.0-1.0) mg/dL Direct Bilirubin (0.0-0.5) mg/dL AST (5-31) U/L ALT (0-31) U/L Alkaline Phosphatase (39-117) U/L Total Protein (6.5-8.0) g/dL Albumin (3.5-5.0) g/dL Lipase (8-78) U/L Urine Color Urine Appearance Urine pH (5.0-8.0) Ur Specific [place] (1.005-1.025) Urine Protein (NEG-TRACE) MG/DL Urine Glucose (UA) (NEG) MG/DL Urine Ketones (NEG) MG/DL Urine Blood (NEG) Urine Nitrite (NEG) Ur Leukocyte Esterase (NEG) Urine RBC (0) /HPF Urine WBC (0-4) /HPF Ur Squamous Epith Cells /LPF Ur Renal Epithelial Cell /LPF Urine Bacteria /LPF Hyaline Casts /LPF Urine Mucus /LPF Urine Test NEGATIVE (NEGATIVE) Discharge Plan Discharge Clinical Impression: Abdominal pain Qualifiers: Abdominal location: right lower quadrant Qualified Code(s): R10.31 - Right lower quadrant pain Patient Disposition: Home, Self-Care Instructions: Abdominal Pain (ED) Additional Instructions: Your blood work was reassuring today in the ED Your CT scan shows fluid in the veins in her liver, it is recommended that you have an outpatient ultrasound for further evaluation You also have inflamed lymph nodes throughout your abdomen, these are old, however you need to follow-up with a GI doctor Call Gastroenterology to make an appointment Zofran as antinausea medication, Pepcid and Maalox to help with acid reduction, Bentyl will help abdominal spasming Please follow-up with your doctor as well If her symptoms persist or worsen/become unbearable, you have fever, persistent nausea/vomiting, your unable to eat or drink return to the ED Prescriptions: New dicyclomine 20 mg tablet 20 mg PO QID PRN (Reason: Abdominal cramping) Qty: 20 RF: 0 ondansetron HCl [Zofran] 4 mg tablet 4 mg PO Q8H PRN (Reason: nausea and vomiting) Qty: 10 RF: 0 alum-mag hydroxide-simeth [Maalox Advanced] 200-200-20 mg/5 mL suspension 5 ml PO 5XD PRN (Reason: dyspepsia) Qty: 30 RF: 0 famotidine [Pepcid] 20 mg tablet 20 mg PO DAILY Qty: 14 RF: 0 No Action levofloxacin 750 mg tablet 750 mg PO DAILY 7 Days Qty: 7 RF: 0 prednisone 10 mg tablet 10 mg PO DAILY Qty: 60 RF: 0 jvcksjznil-qiyskshoan-xds-cod [Fioricet with Codeine] 23-663-37-30 mg capsule 1 cap PO Q4H PRN (Reason: headache) Qty: 14 RF: 0 topiramate [Topamax] 50 mg tablet 50 mg PO BEDTIME 30 Days Qty: 30 RF: 0 Referrals: Balta Shultz [Physician] - 3 days [facility] Past Medical History Attestation statement: The following information was validated with the patient. Medical History Epilepsy Social History Social History Alcohol intake: never Smoked in Last 30 Days: No Use of substances other than those prescribed or required for medical reasons: No Advance Directives: No Advance Directives Information Provided: No Patient : No
[2021-09-21 16:59] LABS: MANUAL DIFF FLAG NO
[2021-09-21] MEDS: Acetaminophen 325 MG TABLET 650 MG PO (17:00)
[2021-09-21] MEDS: ondansetron HCL 4 MG/2 ML VIAL IVPUSH (17:00)
[2021-09-21] MEDS: 0.9 % Sodium Chloride 1,000 ML 999 ML IVCONT (17:00)
[2021-09-21 17:02] LABS: Appearance Urine HAZY; Color Urine YELLOW; Glucose Urine UA NEG (NEG); Leukocyte Esterase Urine TRACE (NEG); Nitrite Urine NEG (NEG); UACC Culture Trigger YES; Urine Blood 1+ (NEG); Urine Ketones NEG (NEG); Urine Protein NEG (NEG-TRACE)
[2021-09-21 17:04] LABS: UPreg QC Valid YES; Urine Pregnancy NEGATIVE (NEGATIVE)
[2021-09-21 17:07] LABS: Mucus Urine 3+ /LPF; Renal Epithelial Cells Urine 1+ /LPF; Squamous Epithelial Cell Urine 3+ /LPF
[2021-09-21 17:08] LABS: Bacteria Urine 3+ /LPF; Hyaline Casts Urine 0-2 /LPF
[2021-09-21 17:09] LABS: RBC Urine 0-2 /HPF (0)
[2021-09-21 17:10] LABS: Basophils Absolute Auto 0.1 X10*3/uL (0.0-0.2); Basophils Percent Auto 0.4 % (0-2); Eosinophils Absolute Auto 0.2 X10*3/uL (0.0-0.4); Eosinophils Percent Auto 1.3 % (0-4); Hematocrit 43.9 % (37-47); Hemoglobin 15.2 g/dl (12.0-16.0); Imm Gran Abs Auto 0.05 X10*3/uL (0.00-0.03); Imm Gran Pct Auto 0.4 % (0.0-0.4); Lymphocytes Absolute Auto 2.1 X10*3/uL (1.2-4.9); Lymphocytes Percent Auto 17.8 % (20-40); Mean Corpuscular HGB Conc 34.6 g/dl (31.0-35.0); Mean Corpuscular Hemoglobin 30.3 pg (27.0-33.0); Mean Corpuscular Volume 87.6 fL (80-98); Mean Platelet Volume 10.8 fL (9.4-12.3); Monocytes Absolute Auto 0.9 X10*3/uL (0.1-1.2); Monocytes Percent Auto 7.3 % (2-11); Neutrophils Absolute Auto 8.5 X10*3/uL (2.0-8.3); Neutrophils Percent Auto 72.8 % (45-73); Platelet Count 298 X10*3/uL (160-400); Red Blood Count 5.01 X10*6/uL (4.20-5.50); Red Cell Distribution Width 12.6 % (11.0-16.0); White Blood Count 11.7 X10*3/uL (4.8-10.8)
[2021-09-21 17:17] LABS: Alanine Aminotransferase 6 U/L (0-31); Albumin Level 4.2 g/dL (3.5-5.0); Alkaline Phosphatase 79 U/L (39-117); Anion Gap 12 (12-20); Aspartate Amino Transferase 16 U/L (5-31); Bilirubin Direct 0.2 mg/dL (0.0-0.5); Bilirubin Total 0.5 mg/dL (0.0-1.0); Blood Urea Nitrogen 13 mg/dL (9-16); Calcium 9.7 mg/dL (8.4-10.2); Carbon Dioxide 26 mmol/L (22-29); Chloride 106 mmol/L (96-108); Creatinine Clr Calc Pharmacy 71.7; Estimated Glomerular Filt Rate > 60; Glucose Random 84 mg/dL (60-115); Lipase 19 U/L (8-78); Magnesium 2.3 mg/dL (1.6-2.6); Potassium 4.1 mmol/L (3.3-5.1); Sodium 140 mmol/L (135-145); Total Protein 6.6 g/dL (6.5-8.0)
[2021-09-21] MEDS: iohexoL 350 MG/ML 100 ML INFUS..BTL IV (17:35)
[2021-09-21] MEDS: Dicyclomine HCl 10 MG CAPSULE 20 MG PO (19:28)
[2021-09-21] MEDS: Famotidine/PF 20 MG/2 ML VIAL IVPUSH (19:28)
[2021-09-21] MEDS: Ketorolac Tromethamine 15 MG/ML VIAL IVPUSH (19:28)
[2021-09-21] MEDS: Magnesium Hydrox/Alum Hydrox 30 ML ORAL.SUSP PO (19:28)
[2021-09-21 19:34] VITALS: BP 125/82; PULSE 75; RESP 18; TEMP 36.7; O2SAT 98
--- NOTE | 2021-09-21 19:51 | PC.NURSE ---
Pt alert and oriented x4, calm and cooperative. Pt states abd pain, denies nausea. pt educated on CT scan results and states an understanding. Pt tolerated medications well. IV intact, vitals stable. Pt resting in stretcher without complaints, will continue to monitor.
== END 2021-09-21 21:13 | disposition home or self-care (01) ==
PROVIDERS: Physician Assistant; Emergency Provider Emergency Medicine
DX: R10.31 Right lower quadrant pain (principal); Z79.899 Other long term (current) drug therapy
CPT/HCPCS: 36415; 74177; 80048; 80076; 81001; 81003; 81025; 83690; 83735; 85025; 87086; 96361; 96374; 96375; 99284; 99285; J1885; J2405; Q9967

== ENCOUNTER 2021-09-22 16:07 | Emergency (ER) | payer OTHER, SELFPAY ==
--- NOTE | ~2021-09-22 | US_ITS ---
EXAMINATION: US ABDOMEN COMPLETE CLINICAL INFORMATION: RUQ pain, left upper quadrant pain. COMPARISON: None TECHNIQUE: Real-time imaging of the abdominal viscera. FINDINGS: PANCREAS: Normal. ABDOMINAL AORTA: The proximal, mid, and distal segments are normal in caliber. INFERIOR VENA CAVA: Visualized portions are normal. LIVER: Normal. The liver is normal in size. The liver contour is normal. Parenchymal echogenicity is normal. No focal hepatic lesion. There is no intrahepatic biliary duct dilatation seen. GALLBLADDER: There is a small polyp. The gallbladder is physiologically distended without evidence of stones, sludge, polyps, wall thickening or pericholecystic fluid. COMMON BILE DUCT: Normal in caliber measuring 0.6 cm in diameter. RIGHT KIDNEY: Normal. No hydronephrosis. No renal calculi or focal parenchymal lesions. The kidney measures 10.2 cm in maximum dimension. LEFT KIDNEY: There is a 1.1cm simple cyst. No hydronephrosis. No renal calculi or focal parenchymal lesions. The kidney measures 10.8 cm in maximum dimension. SPLEEN: Normal. The spleen measures 9.3 cm in maximum dimension. FREE FLUID: None. US/US abdomen complete IMPRESSION: Decompressed gallbladder. There is a small 0.2cm gallbladder polyp. 1.1 cm simple cyst in the left midpole.
--- NOTE | 2021-09-22 16:15 | ECG_ITS ---
Test Reason : chest pain Blood Pressure : / mmHG Vent. Rate : 081 BPM Atrial Rate : 081 BPM P-R Int : 108 ms QRS Dur : 086 ms QT Int : 350 ms P-R-T Axes : 065 043 033 degrees QTc Int : 406 ms Sinus rhythm with short HI RSR' or QR pattern in V1 suggests right ventricular conduction delay Borderline ECG No significant changes seen Referred By: Generic ED Physician Electronically Signed By:AMBREEN GUSMAN MD
[2021-09-22 16:23] VITALS: BP 113/82; PULSE 99; RESP 18; TEMP 36.8; O2SAT 98; BMI 23.0
--- NOTE | 2021-09-22 18:08 | ED_ITS ---
HPI - Abdominal Pain General Chief Complaint: Abdominal Pain Stated Complaint: chest pain/stomach pain Time Seen by Provider: 09/22/21 17:30 Source: patient Mode of arrival: ambulatory Limitations: no limitations History of Present Illness HPI narrative: 31 yo female with history of epilepsy not on treatment presents to the ER with abdominal pain for the last 2 days. She was seen here yesterday for the same. Yesterday she had 1 episode of diarrhea and vomiting. She had lab workup and CT scan doneShowed some fluid around the portal veins in her liver, possible cystic changes of the liver. She was treated with Toradol, Maalox and Pepcid. She was feeling better discharged home with plan to follow up with GI as an outpatient for evaluation and liver ultrasound. She reports calling Dr. Shutlz office today and was unable to be seen due to having Voxbone and not having a primary care doctor for referral. She is coming back to the ER today with ongoing pain in her abdomen and she is requesting a liver ultrasound. She reports her pain is in her left upper quadrant and radiates around to the front of her abdomen. She has had no further nausea vomiting or diarrhea. MD elicited complaint: abdominal pain Pertinent past history: none Onset (ago): day(s) Pain Consistency: colicky Location: LUQ Severity: moderate Quality: aching Radiation: RUQ and epigastric Migration to: no migration Exacerbating factors: nothing Relieving factors: nothing Associated symptoms: denies other symptoms Related Data Home Medications Medication Instructions Recorded Confirmed norethindrone 1 mg-ethinyl 1 tab PO DAILY 09/22/21 estradiol 35 mcg tablet (Alyacen) Previous Rx's Medication Instructions Recorded butalbital 50 mg-acetaminophen 300 1 cap PO Q4H PRN #14 cap 03/22/21 mg-caffeine 40 mg-codeine 30 mg cap (Fioricet with Codeine) aluminum-mag hydroxide-simethicone 5 ml PO 5XD PRN #30 ml 09/21/21 200 mg-200 mg-20 mg/5 mL oral susp (Maalox Advanced) dicyclomine 20 mg tablet 20 mg PO QID PRN #20 tab 09/21/21 famotidine 20 mg tablet (Pepcid) 20 mg PO DAILY #14 tab 09/21/21 ondansetron HCl 4 mg tablet 4 mg PO Q8H PRN #10 tab 09/21/21 (Zofran) Allergies Allergy/AdvReac Type Severity Reaction Status Date / Time amoxicillin [AMOXICILLIN] Allergy Unknown HIVES Verified 03/22/21 08:28 Review of Systems Review of Systems Constitutional: No Fever, No Chills ENT/Mouth: No sore throat, No Rhinorrhea, No Swallowing Difficulty Eyes: No Eye Pain, No Swelling, No Redness Cardiovascular: No Chest Pain, No SOB, No Orthopnea, No Edema Respiratory: No Cough, No Sputum, No Wheezing, No dyspnea Gastrointestinal: No Nausea, No Vomiting, No Diarrhea, + abdominal Pain, No Hematochezia, No Melena Genitourinary: No Dysuria, No Urinary Frequency, No Hematuria Musculoskeletal: No joint pain, No Myalgias Skin: No Skin Lesions, No rash Neuro: No Weakness, No Numbness, No Dizziness, No Headache Psych: No Anxiety/Panic, No Depression Heme/Lymph: No Bruising, No Lymphadenopathy Endocrine: No Polyuria, No Polydipsia Physical Exam Vital Signs: Vital Signs: Last Vital Signs Temp 98.0 F 09/22/21 19:47 Pulse 79 09/22/21 19:47 Resp 18 09/22/21 19:47 BP 115/73 09/22/21 19:47 Pulse Ox 97 09/22/21 19:47 Body Mass Index 23.0 Appearance: Alert. Oriented X3. No acute distress. HEENT: normal external inspection Neck: Normal inspection. Neck supple. CVS: Normal heart rate and rhythm. Pulses normal. Respiratory: No respiratory distress. Breath sounds normal. Abdomen: Soft with mild LUQ tenderness, no rebound or guarding. +BS x4. No CVA tenderness. Skin: Skin warm and dry. Normal skin color. Normal skin turgor. No rashes. Extremities: No lower extremity edema. Neuro: Oriented X 3. No motor deficit. No sensory deficit. Course Course Course Narrative: 31-year-old female with history of epilepsy presenting with ongoing abdominal pain for the last 2 days. She was seen here yesterday and had a full workup. She presents back essentially asking for a liver ultrasound. She has no further nausea vomiting or diarrhea. Her abdominal exam is benign. Reevaluation(s) Reevaluation #1: Abdominal ultrasound showing a small gallbladder polyp, decompressed gallbladder. Also showing a 1.1 cm left kidney cyst. Both are tho ught to be incidental findings in not contributing to her symptoms at this time. Most likely she is recovering from an acute gastroenteritis. She reports eating a pizza that did not agree with her 2 days ago when she had the nausea, vomiting, diarrhea. She was given Pepcid, Maalox, Bentyl with improvement in her symptoms. She is instructed to continue taking these medications in stick to a bland diet which she is not feeling well. She is tolerating p.o. well and is stable for discharge home. Discharge Plan Discharge Clinical Impression: Gastroenteritis Patient Disposition: Home, Self-Care Instructions: Gastroenteritis (ED) Additional Instructions: Your abdominal ultrasound today was reassuring it showed a small gallbladder polyp and a small cyst in the left kidney, both are incidental findings and not likely to be causing any of your symptoms. Is most likely you are recovering from a a case of gastroenteritis. Continue taking the previously prescribed medications as needed Stick to a bland diet while your not feeling well If you develop new or worsening symptoms call 911 or come back to the ER for further evaluation. Prescriptions: No Action jszrdprkqw-tqkxoufech-xsy-cod [Fioricet with Codeine] 05-003-28-30 mg capsule 1 cap PO Q4H PRN (Reason: headache) Qty: 14 RF: 0 dicyclomine 20 mg tablet 20 mg PO QID PRN (Reason: Abdominal cramping) Qty: 20 RF: 0 ondansetron HCl [Zofran] 4 mg tablet 4 mg PO Q8H PRN (Reason: nausea and vomiting) Qty: 10 RF: 0 alum-mag hydroxide-simeth [Maalox Advanced] 200-200-20 mg/5 mL suspension 5 ml PO 5XD PRN (Reason: dyspepsia) Qty: 30 RF: 0 famotidine [Pepcid] 20 mg tablet 20 mg PO DAILY Qty: 14 RF: 0 [place] 1/35 (28) 1-35 mg-mcg tablet 1 tab PO DAILY RF: 0 Referrals: Sarah Garcia MD [Physician] - 1 week (Untreated epilepsy with ongoing seizures) Stand Alone Forms: Work/School Release [facility] Past Medical History Medical History Epilepsy Social History Social History Alcohol intake: never Advance Directives: No Advance Directives Information Provided: Yes Patient : No
--- NOTE | 2021-09-22 18:37 | PC.NURSE ---
pt explains to this rn that she attempted to follow up with gi but was told that she needed a referal from her pcp, pt states she has [facility] and cant get a pcp appt until februrary this rn spoke with case t and provied her with # for [address] p[address] appt.
[2021-09-22 19:47] VITALS: BP 115/73; PULSE 79; RESP 18; TEMP 36.7; O2SAT 97
== END 2021-09-22 20:07 | disposition home or self-care (01) ==
PROVIDERS: Emergency Provider Emergency Medicine; PCP Internal Medicine
DX: K52.9 Noninfective gastroenteritis and colitis, unspecified (principal); R10.12 Left upper quadrant pain; R07.89 Other chest pain; Z79.899 Other long term (current) drug therapy
CPT/HCPCS: 76700; 93005; 99284

== ENCOUNTER 2021-11-10 16:44 | Emergency (ER) | payer OTHER, SELFPAY ==
[2021-11-10 19:24] VITALS: BP 132/84; PULSE 97; RESP 18; TEMP 36.9; O2SAT 98; BMI 23.0
[2021-11-10 19:48] LABS: Strep A Nucleic Acid Negative (Negative)
[2021-11-10 20:20] LABS: Influenza A PCR NEGATIVE (Negative); Influenza B PCR NEGATIVE (Negative); Resp Syncy Virus RNA Qual PCR NEGATIVE (Negative); SARS COV2 PCR INHOUSE NEGATIVE (Negative)
[2021-11-10 22:13] VITALS: O2SAT 97
--- NOTE | 2021-11-10 22:56 | ED.URI ---
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 exposed to COVID patient last week already been vaccinated been congested coughing with nasal congestion and sore throat no fever no body ache no loss of taste sensation patient tested for COVID and flu and strep 4 days ago which was negative still not feeling good no shortness of breath Related Data Home Medications Medication Instructions Recorded Confirmed norethindrone 1 mg-ethinyl 1 tab PO DAILY 09/22/21 estradiol 35 mcg tablet (Alyacen) Previous Rx's Medication Instructions Recorded butalbital 50 mg-acetaminophen 300 1 cap PO Q4H PRN #14 cap 03/22/21 mg-caffeine 40 mg-codeine 30 mg cap (Fioricet with Codeine) aluminum-mag hydroxide-simethicone 5 ml PO 5XD PRN #30 ml 09/21/21 200 mg-200 mg-20 mg/5 mL oral susp (Maalox Advanced) dicyclomine 20 mg tablet 20 mg PO QID PRN #20 tab 09/21/21 famotidine 20 mg tablet (Pepcid) 20 mg PO DAILY #14 tab 09/21/21 ondansetron HCl 4 mg tablet 4 mg PO Q8H PRN #10 tab 09/21/21 (Zofran) azithromycin 500 mg tablet 500 mg PO DAILY 3 Days #3 tab 11/10/21 (Zithromax TRI-ANGELA) codeine 10 mg-guaifenesin 100 mg/5 10 ml PO Q6H PRN #237 ml 11/10/21 mL oral liquid Allergies Allergy/AdvReac Type Severity Reaction Status Date / Time amoxicillin [AMOXICILLIN] Allergy Unknown HIVES Verified 03/22/21 08:28 Review of Systems Review of Systems: Yes all other systems are reviewed and are negative PMFSH Past Medical History Medical History Epilepsy Social History Social History Alcohol intake: never Advance Directives: No Advance Directives Information Provided: No Patient : No Physical Exam Vital Signs: Vital Signs: Last Vital Signs Temp 98.4 F 11/10/21 19:24 Pulse 97 11/10/21 19:24 Resp 18 11/10/21 19:24 BP 132/84 11/10/21 19:24 Pulse Ox 97 11/10/21 22:13 BMI result Body Mass Index 23.0 Appearance: Alert. Oriented X3. No acute distress. ENT: Slight erythema no tonsillar enlargement no exudates, nasal turbinates inflamed with purulent discharge Oral Mucosa moist Neck: Normal inspection. Neck supple. CVS: Normal heart rate and rhythm. Pulses normal. Respiratory: No respiratory distress. Equal air entry bilateral, no wheezing/rales/rhonchi Abdomen: Soft and nontender. Skin: Skin warm and dry. Normal skin color. Normal skin turgor. Extremities: No lower extremity edema. No calf tenderness Neuro: Oriented X 3. MDM - URI/Sore Throat Lab Data Attestation: I reviewed the patient's lab results. Labs: Lab Results 11/10/21 11/10/21 Range/Units 19:30 19:30 Influenza Type A (PCR) NEGATIVE (Negative) Influenza Type B (PCR) NEGATIVE (Negative) RSV RNA Qual (PCR) NEGATIVE (Negative) SARS-CoV-2 RNA (RT-PCR) NEGATIVE (Negative) S. pyogenes GrpA LEYDA Negative (Negative) Discharge Plan Discharge Clinical Impression: Bronchitis Patient Disposition: Home, Self-Care Instructions: Acute Bronchitis (ED) Additional Instructions: Take antibiotic as advised Take cough syrup as advised. Drink plenty of fluids Tylenol/Motrin for fever or pain Prescriptions: New azithromycin [Zithromax TRI-ANGELA] 500 mg tablet 500 mg PO DAILY 3 Days Qty: 3 RF: 0 codeine-guaifenesin 10-100 mg/5 mL liquid 10 ml PO Q6H PRN (Reason: cough) Qty: 237 RF: 0 No Action vubpwedekp-oipljagxrf-zap-cod [Fioricet with Codeine] 57-115-43-30 mg capsule 1 cap PO Q4H PRN (Reason: headache) Qty: 14 RF: 0 dicyclomine 20 mg tablet 20 mg PO QID PRN (Reason: Abdominal cramping) Qty: 20 RF: 0 ondansetron HCl [Zofran] 4 mg tablet 4 mg PO Q8H PRN (Reason: nausea and vomiting) Qty: 10 RF: 0 alum-mag hydroxide-simeth [Maalox Advanced] 200-200-20 mg/5 mL suspension 5 ml PO 5XD PRN (Reason: dyspepsia) Qty: 30 RF: 0 famotidine [Pepcid] 20 mg tablet 20 mg PO DAILY Qty: 14 RF: 0 Alyacen (28) 1-35 mg-mcg tablet 1 tab PO DAILY RF: 0 Stand Alone Forms: Work/School Release
[2021-11-10] MEDS: guaiFEN/Codeine SF 200/20/10ML 10 ML LIQUID PO (23:43)
[2021-11-10] MEDS: Azithromycin 500 MG TABLET PO (23:43)
== END 2021-11-11 00:03 | disposition home or self-care (01) ==
PROVIDERS: Emergency Provider Internal Medicine
DX: J40 Bronchitis, not specified as acute or chronic (principal); Z20.822 Contact with and (suspected) exposure to COVID-19; Z79.899 Other long term (current) drug therapy
CPT/HCPCS: 0241U; 36415; 87651; 99283; 99284

== ENCOUNTER 2022-02-05 07:45 | Emergency (ER) | payer OTHER, SELFPAY ==
[2022-02-05 07:50] VITALS: BP 124/82; PULSE 116; RESP 18; TEMP 36.6; O2SAT 98; BMI 23.2
[2022-02-05 08:05] LABS: MANUAL DIFF FLAG NO
[2022-02-05 08:08] LABS: Basophils Percent Auto 0.4 % (0-2); Eosinophils Percent Auto 0.6 % (0-4); Hematocrit 41.3 % (37.0-47.0); Hemoglobin 14.1 g/dl (12.0-16.0); Imm Gran Abs Auto 0.02 X10*3/uL (0.00-0.03); Imm Gran Pct Auto 0.4 % (0.0-0.4); Lymphocytes Absolute Auto 0.4 X10*3/uL (1.2-4.9); Mean Corpuscular HGB Conc 34.1 g/dl (31.0-35.0); Mean Corpuscular Hemoglobin 30.2 pg (27.0-33.0); Mean Corpuscular Volume 88.4 fL (80.0-98.0); Mean Platelet Volume 10.8 fL (9.4-12.3); Monocytes Absolute Auto 0.6 X10*3/uL (0.1-1.2); Monocytes Percent Auto 11.5 % (2-11); Neutrophils Absolute Auto 3.9 x10*3/uL (2.0-8.3); Neutrophils Percent Auto 79.1 % (45-73); Platelet Count 226 X10*3/uL (160-400); Red Blood Count 4.67 X10*6/uL (4.20-5.50); Red Cell Distribution Width 12.7 % (11.0-16.0)
[2022-02-05 08:16] LABS: COVID-19 Test Positive (Negative)
[2022-02-05 08:20] LABS: Anion Gap 10 (12-20); Blood Urea Nitrogen 11 mg/dL (9-16); Calcium 9.1 mg/dL (8.4-10.2); Carbon Dioxide 25 mmol/L (22-29); Chloride 107 mmol/L (96-108); Estimated Glomerular Filt Rate > 60; Glucose Random 97 mg/dL (60-115); Sodium 138 mmol/L (135-145)
[2022-02-05] MEDS: Acetaminophen 325 MG TABLET 975 MG PO (08:59)
--- NOTE | 2022-02-05 08:59 | ED_ITS ---
HPI - General Adult General Chief complaint: General Medical Stated complaint: SOB/ history of epilepsy/possibly covid + Time Seen by Provider: 02/05/22 08:27 Source: patient Mode of arrival: ambulatory Limitations: no limitations History of Present Illness HPI narrative: 37-year-old female history of seizures presents to ED for COVID like symptoms due to COVID exposure. Patient states yesterday her fiance tested positive. Patient states she started having symptoms since Saturday. Patient states she was exposed to co-worker tested positive for COVID. Patient states multiple of her coworkers were positive for COVID since last week. Patient only received [employer] vaccine last march. Patient did not receive a booster. Patient states since Saturday having body aches, fever, back pain with lower flank pain, coughing, sinus pain, and chills. Patient states also she had seizure last night. Patient compliant with seizure meds. Patient alert oriented x3. Patient denies any neuro symptoms. Patient denies any chest pain or shortness of breath. Related Data Home Medications Medication Instructions Recorded Confirmed norethindrone 1 mg-ethinyl 1 tab PO DAILY 09/22/21 estradiol 35 mcg tablet (Alyacen) Previous Rx's Medication Instructions Recorded butalbital 50 mg-acetaminophen 300 1 cap PO Q4H PRN #14 cap 03/22/21 mg-caffeine 40 mg-codeine 30 mg cap (Fioricet with Codeine) aluminum-mag hydroxide-simethicone 5 ml PO 5XD PRN #30 ml 09/21/21 200 mg-200 mg-20 mg/5 mL oral susp (Maalox Advanced) dicyclomine 20 mg tablet 20 mg PO QID PRN #20 tab 09/21/21 famotidine 20 mg tablet (Pepcid) 20 mg PO DAILY #14 tab 09/21/21 ondansetron HCl 4 mg tablet 4 mg PO Q8H PRN #10 tab 09/21/21 (Zofran) azithromycin 500 mg tablet 500 mg PO DAILY 3 Days #3 tab 11/10/21 (Zithromax TRI-ANGELA) codeine 10 mg-guaifenesin 100 mg/5 10 ml PO Q6H PRN #237 ml 11/10/21 mL oral liquid Allergies Allergy/AdvReac Type Severity Reaction Status Date / Time amoxicillin [AMOXICILLIN] Allergy Unknown HIVES Verified 03/22/21 08:28 Review of Systems Review of Systems: Coughing, fever, body aches, lower back pain with flank pain, seizure last night. Yes all other systems are reviewed and are negative [facility] Past Medical History Medical History Epilepsy Social History Social History Alcohol intake: never Advance Directives: No Advance Directives Information Provided: No Patient : No Physical Exam ED Vital Signs: Vital Signs - 24 hr 02/05/22 07:50 02/05/22 09:32 02/05/22 10:30 Temperature 98 F Pulse Rate 116 H 104 H 95 Respiratory Rate 18 22 H 24 H Blood Pressure 124/82 104/71 102/68 Pulse Oximetry 98 98 97 BMI result Body Mass Index 23.2 Const General: cooperative, healthy appearing, comfortable, no acute distress, well developed, alert, awake and Physically active Orientation/consciousness: patient oriented x3 HENMT Head: Yes normal to inspection, Yes No palpable skull fracture present, Yes normocephalic, Yes atraumatic and No abrasion Ears: hearing grossly normal bilaterally, external ears normal, TM's normal tory aterally, EAC's normal, mastoids normal and no periauricular adenopathy General nose exam: Normal external nose present and Normal nares present Face and sinus: Yes normal facial exam, Yes face symmetric and Yes sinus tenderness (maxillary) Mouth: Normal oral and palatal mucosa present, lip normal and tongue normal Teeth and gingiva: dentition normal and gingiva normal Throat: Yes posterior oropharynx normal, Yes tonsils normal and Yes uvula midline Eyes General: appearance normal, both eyes and all related structures Neck Neck: Yes normal visual inspection, Yes full ROM, Yes no lymphadenopathy, Yes no meningeal signs, Yes trachea midline, Yes supple, No anterior neck swelling and No tender Chest Chest palpation & inspection: normal inspection of the chest and normal palpation of entire chest wall Resp Effort & Inspection: normal respiratory effort and able to speak in complete sentences Auscultation: clear to auscultation bilaterally Cardio Jugular venous distension: no JVD Heart sounds: S1 normal heart sound present and S2 normal heart sound present GI Inspection: Yes normal to inspection and No abdominal wall ecchymosis Palpation (GI): Soft to palpation, not firm, nontender, no guarding and not rigid General: No CVA tenderness and Yes no CVA tenderness Back/Spine/Pelvis Back: no CVA tenderness, No CVA tenderness and No back tenderness Skin General skin exam: no rashes or lesions noted and elasticity normal Neuro Other: Negative facial droop. All extremities equal strength 5+. Finger to nose rapid hand movement intact. Negative slurred speech. Negative Romberg. Negative pronator drift. Finger to nose rapid hand movement intact General: patient oriented x3, gait normal, no meningeal signs and CN's II-XI intact bilaterally Cranial nerves: Yes CN's II-XII intact bilaterally Extrem Other: lower extremities negative for swelling, pitting edema, or calf tenderness General: Yes normal to inspection and Yes full ROM Psych Appearance: grossly normal, well kempt and not disheveled Course Course Course Narrative: Labs will be drawn in COVID swab sent. UA also ordered. No need for head CT scan. Patient alert oriented x3 and negative for any neuro deficits Reevaluation(s) Reevaluation #1: Patient came back positive for COVID. Patient's labs came back at baseline. Patient states she urinated before coming to the ED. patient given oral hydration patient to give urine. Patient denies presently any chest pain or shortness of breath. no Need for cardiac evaluation or D-dimer. Not suspect ing PE or MN. Patient is not hypoxic. Patient is not in any respiratory distress. Time: 08:30 Reevaluation #2: Negative for CVA of flanks and negative for urinary symptoms. Patient does not have urge to give urine. Very unlikely patient having UTI. Low back pain in COVID is common presentation. Low back pain most likely from COVID. Patient informed to follow-up with primary care provider to have urine tested to check for UTI if she reaches knee has back pain. the nurse informed me that patient had episode of eyes rolling back into head but there was no shaking of the body. Small seizure. Patient came back out of it quickly and is alert oriented x3. Patient states sometimes her seizures could be general tonic clonic stiff and other times could just be eyes rolling into the back witn no shaking. Patient has follow-up with her neurologist. Patient states taking Topamax last night or this morning. Patient states having history of multiple seizures per month and that is her baseline. Patient given oral Ativan in the ED. Time: 09:48 Medical Decision Making MDM Narrative Medical decision making narrative: COVID Lab Data Result diagrams: 02/05/22 08:01 02/05/22 08:01 Labs: Lab Results 02/05/22 02/05/22 02/05/22 Range/Units 07:57 08:01 08:01 WBC 5.0 (4.8-10.8) X10*3/uL RBC 4.67 (4.20-5.50) X10*6/uL Hgb 14.1 (12.0-16.0) g/dl Hct 41.3 (37.0-47.0) % MCV 88.4 (80.0-98.0) fL MCH 30.2 (27.0-33.0) pg MCHC 34.1 (31.0-35.0) g/dl RDW 12.7 (11.0-16.0) % Plt Count 226 (160-400) X10*3/uL MPV 10.8 (9.4-12.3) fL Immature Gran % (Auto) 0.4 (0.0-0.4) % Neut % (Auto) 79.1 H (45-73) % Lymph % (Auto) 8.0 L (20-40) % [place] % (Auto) 11.5 H (2-11) % Eos % (Auto) 0.6 (0-4) % Baso % (Auto) 0.4 (0-2) % Lymph # (Auto) 0.4 L (1.2-4.9) X10*3/uL [place] # (Auto) 0.6 (0.1-1.2) X10*3/uL Eos # (Auto) 0.0 (0.0-0.4) X10*3/uL Baso # (Auto) 0.0 (0.0-0.2) X10*3/uL Abs Immat Gran (auto) 0.02 (0.00-0.03) X10*3/uL Absolute Neuts (auto) 3.9 (2.0-8.3) x10*3/uL Absolute Nucleated RBC 0.000 (0.0-0.012) X10*3/uL Nucleated RBC % (auto) 0.0 (0.0-0.2) /100WBC Sodium 138 (135-145) mmol/L Potassium 4.0 (3.3-5.1) mmol/L Chloride 107 (96-108) mmol/L Carbon Dioxide 25 (22-29) mmol/L Anion Gap 10 L (12-20) BUN 11 (9-16) mg/dL Creatinine 0.84 (0.5-1.4) mg/dL Estim Creat Clear Calc 76.0 Estimated GFR > 60 Random Glucose 97 (60-115) mg/dL Calcium 9.1 D (8.4-10.2) mg/dL Beta HCG, Quant < 2 mIU/mL COVID-19 (CAROLYNE) Positive A (Negative) COVID-19 Clin Com See Note Discharge Plan Discharge Clinical Impression: COVID-19 Patient Disposition: Home, Self-Care Instructions: COVID-19 (Coronavirus Disease 2019) (ED) Additional Instructions: Came back positive for COVID-19 virus. Recommend oral hydration, Motrin/Tylenol for pain fevers leaf, and self-isolation. Recommend buying fyex-ttv-ztifwqs portable finger pulse ox recheck for oxygenation. If oxygen levels drop below 95 94% return to the ED immediately. Also follow-up with your neurologist in regards to seizure. Low back pain symptoms most likely due to COVID but he could follow-up with your primary care provider to check UA to evaluate for UTI since she did not give a sample during ED. return to the ED immediately for any chest pain, shortness of breath, coughing up blood, leg swelling, calf pain, severe headache, slurred speech, facial droop, paralysis of extremities, loss of vision, intractable seizures, or any other concerning symptoms Prescriptions: No Action qjqkeiemzr-dqwjhskvny-srz-cod [Fioricet with Codeine] 68-302-60-30 mg capsule 1 cap PO Q4H PRN (Reason: headache) Qty: 14 0RF dicyclomine 20 mg tablet 20 mg PO QID PRN (Reason: Abdominal cramping) Qty: 20 0RF ondansetron HCl [Zofran] 4 mg tablet 4 mg PO Q8H PRN (Reason: nausea and vomiting) Qty: 10 0RF alum-mag hydroxide-simeth [Maalox Advanced] 200-200-20 mg/5 mL suspension 5 ml PO 5XD PRN (Reason: dyspepsia) Qty: 30 0RF Rx Instructions: administer between meals and at bedtime famotidine [Pepcid] 20 mg tablet 20 mg PO DAILY Qty: 14 0RF Alyacen (28) 1-35 mg-mcg tablet 1 tab PO DAILY 0RF azithromycin [Zithromax TRI-ANGELA] 500 mg tablet 500 mg PO DAILY 3 Days Qty: 3 0RF codeine-guaifenesin 10-100 mg/5 mL liquid 10 ml PO Q6H PRN (Reason: cough) Qty: 237 0RF Stand Alone Forms: Work/School Release Discharge Date/Time: 02/05/22 11:04 Print Language: Mauritian
--- NOTE | 2022-02-05 09:01 | PC.NURSE ---
Pt received: Pt AOX4 and offers c/o WHITE, body aches. Heart sounds normal and lungs clear. pt abd soft and non-tender.
[2022-02-05 09:32] VITALS: BP 104/71; PULSE 104; RESP 22; O2SAT 98
--- NOTE | 2022-02-05 09:32 | PC.NURSE ---
Pt noted to be having another epileptic episode, eye rolled back. RN to room, able to have pt open her eyes. SIERRA Starks aware as well. Pt states she normally takes topamax 50mg BID, and she thinks she took her morning pill today. Pt remains slightly lethargic and AOX3, with intermittent WHITE. NSR noted and lungs clear.
[2022-02-05] MEDS: LORazepam 1 MG TABLET PO (09:46)
[2022-02-05 10:09] LABS: HCG Quantitative < 2 mIU/mL
[2022-02-05 10:30] VITALS: BP 102/68; PULSE 95; RESP 24; O2SAT 97
== END 2022-02-05 11:04 | disposition home or self-care (01) ==
PROVIDERS: Physician Assistant; Emergency Provider Emergency Medicine
DX: U07.1 COVID-19 (principal); M54.50 Low back pain, unspecified; G40.909 Epilepsy, unspecified, not intractable, without status epilepticus
CPT/HCPCS: 80048; 84702; 85025; 87635; 99283

== ENCOUNTER 2022-07-23 11:32 | Outpatient (REF) | payer OTHER, SELFPAY ==
[2022-07-23 12:00] LABS: Binax Now Covid-19 Ag Positive (Negative); Binax Performed by: HO.BONILM
[2022-07-23 12:01] LABS: Binax Internal Control QC Valid
== END 2022-07-23 11:33 | disposition home or self-care (01) ==
LOC: HO.HMGCLDS 11:32
PROVIDERS: Visit Provider Nurse Practitioner Family
DX: Z20.822 Contact with and (suspected) exposure to COVID-19 (principal)
CPT/HCPCS: 87811; C9803

== ENCOUNTER 2022-08-03 12:25 | Emergency (ER) | payer OTHER, SELFPAY ==
--- NOTE | ~2022-08-03 | CT_ITS ---
EXAMINATION: CT HEAD WITHOUT CONTRAST CLINICAL INFORMATION: Seizure. Headache. COMPARISON: CT head 03/22/2021 TECHNIQUE: Contiguous axial imaging was performed from the skull base to vertex without intravenous administration of contrast. Coronal and sagittal reformatted images are performed at the CT scanner. [This CT examination was performed using dose optimization techniques as appropriate, variously including the following: *Automated exposure control *Adjustment of mA and/or kV according to patient size (this includes techniques or standardized protocols for targeted exams where dose is matched to indication/reason for exam; i.e. extremities or head) *Use of iterative reconstruction technique] DLP: 576 mGy-cm. FINDINGS: There is no evidence of acute intracranial hemorrhage or territorial infarction. No abnormal mass-effect or midline shift is seen. Rose to white matter differentiation is well preserved. No extra-axial fluid collections are identified. The ventricles are normal in size. There is no abnormal attenuation within the brain parenchyma. There is no osseous abnormality. The mastoid air cells and visualized portions of the paranasal sinuses are well-aerated. CT/CT head/brain wo IV con IMPRESSION: No acute intracranial pathology.
[2022-08-03 12:34] VITALS: BP 143/93; PULSE 82; O2SAT 100
[2022-08-03 12:36] VITALS: BP 130/88; PULSE 77; RESP 18; TEMP 36.7; O2SAT 100; BMI 25.0
--- NOTE | 2022-08-03 12:44 | ECG_ITS ---
Test Reason : Seizures Blood Pressure : / mmHG Vent. Rate : 069 BPM Atrial Rate : 069 BPM P-R Int : 118 ms QRS Dur : 086 ms QT Int : 380 ms P-R-T Axes : 053 031 039 degrees QTc Int : 407 ms Normal sinus rhythm with sinus arrhythmia Normal ECG When compared with ECG of 22-SEP-2021 16:19, No significant change was found Referred By: Crystal Espinal Electronically Signed By:LOLITA OMALLEY
--- NOTE | 2022-08-03 12:45 | ED_ITS ---
HPI - Seizure General Chief Complaint: Seizure Stated Complaint: SZ Time Seen by Provider: 08/03/22 12:43 Source: patient and old records reviewed Mode of arrival: EMS Limitations: no limitations History of Present Illness HPI Narrative: 32 yo female reports seizure today at work with aura, no injuries but has had a headache for over a week after testing positive for COVID 8 days ago. Not taking her seizure medications used to be on topiramate 50mg - not consistent doesn't have a prescriber. MD complaint: seizure Onset (ago): minute(s) (prior to arrival ) Duration of episode: 5 -: minutes(s) Witnessed: Yes - by Bystander Trauma: No Seizure History: Yes Place: Work Possible Precipitating Event: other (COVID , not taking her medications) Associated symptoms: other (headache for a week) Treatments prior to arrival: none Related Data Home Medications Medication Instructions Recorded Confirmed norethindrone 1 mg-ethinyl 1 tab PO DAILY 09/22/21 estradiol 35 mcg tablet (Alyacen) Previous Rx's Medication Instructions Recorded butalbital 50 mg-acetaminophen 300 1 cap PO Q4H PRN headache #14 caps 03/22/21 mg-caffeine 40 mg-codeine 30 mg cap (Fioricet with Codeine) aluminum-mag hydroxide-simethicone 5 ml PO 5XD PRN dyspepsia #30 mL 09/21/21 200 mg-200 mg-20 mg/5 mL oral susp (Maalox Advanced) dicyclomine 20 mg tablet 20 mg PO QID PRN Abdominal 09/21/21 cramping #20 tabs famotidine 20 mg tablet (Pepcid) 20 mg PO DAILY #14 tabs 09/21/21 ondansetron HCl 4 mg tablet 4 mg PO Q8H PRN nausea and 09/21/21 (Zofran) vomiting #10 tabs azithromycin 500 mg tablet 500 mg PO DAILY 3 days #3 tabs 11/10/21 (Zithromax TRI-ANGELA) codeine 10 mg-guaifenesin 100 mg/5 10 ml PO Q6H PRN cough #237 mL 11/10/21 mL oral liquid prednisone 20 mg tablet 20 mg PO DAILY 5 days #5 tabs 07/23/22 topiramate 50 mg tablet 50 mg PO .QHS 30 days #30 tabs 08/03/22 Allergies Allergy/AdvReac Type Severity Reaction Status Date / Time amoxicillin [AMOXICILLIN] Allergy Unknown HIVES Verified 07/23/22 11:12 Review of Systems Review of Systems: Constitutional : No Fever, No Chills, No Fatigue ENT/Mouth : No sore throat, No Rhinorrhea Eyes: No Eye Pain, No Swelling, No Redness Cardiovascular : No Chest Pain, No SOB, No Dyspnea on Exertion Respiratory : No Cough, No Sputum Gastrointestinal : No Nausea, No Vomiting, No Diarrhea, No abdominal Pain Genitourinary : No Dysuria, No Urinary Frequency, No Hematuria, Musculoskeletal : No joint pain, No Myalgias, No Joint Swelling Skin : No Skin Lesions, No rash Neuro : No Weakness, No Numbness, No Dizziness, positive Headache, pos seizure Psych : No Anxiety/Panic, No Depression Heme/Lymph: No Bruising, No Bleeding,No Lymphadenopathy Endocrine : No Polyuria, No Polydipsia All other systems reviewed and are negative [facility] Past Medical History Attestation statement: The following information was validated with the patient. Medical History Epilepsy Social History Social History (Updated 08/03/22 @ 12:51 by Crystal Espinal DO) Alcohol intake: never Patient Tobacco Use Status: Never used Tobacco Smoked in Last 30 Days: No Use of substances other than those prescribed or required for medical reasons: No Advance Directives: No Advance Directives Information Provided: Yes Physical Exam Vital Signs: Vital Signs: Last Vital Signs Temp 98.1 F 08/03/22 12:48 Pulse 71 08/03/22 12:48 Resp 18 08/03/22 12:48 BP 130/88 08/03/22 12:48 Pulse Ox 98 08/03/22 12:48 O2 Del Method 08/03/22 12:48 BMI result Body Mass Index 25.0 Appearance: Alert. Oriented X3. No acute distress. Eyes: Pupils equal, round and reactive to light. ENT: Pharynx normal. no tongue biting Neck: Normal inspection. Neck supple. CVS: Normal heart rate and rhythm. Pulses normal. Respiratory: No respiratory distress. Breath sounds normal. Abdomen: Soft and nontender. no incontinence Skin: Skin warm and dry. Normal skin color. Normal skin turgor. Extremities: No lower extremity edema. No calf ttp Neuro: Oriented X 3. No motor deficit. No sensory deficit. Course Course Course Narrative: no further seizure activity GCS 15 stable for DC MDM - Seizure MDM Narrative Medical decision making narrative: 32 yo female hx of seizures not compliant here with headaches post COVID - at this time will obtain basic labs, CT head for mass/trauma, PO ativan, may need refill of her topiramate. Observation. Suspect GTC due to med non-compliance and not SAH/infection. Lab Data Result diagrams: 08/03/22 13:21 08/03/22 13:21 Labs: Lab Results 08/03/22 08/03/22 Range/Units 13:21 13:21 WBC 11.3 H (4.8-10.8) X10*3/uL RBC 4.97 (4.20-5.50) X10*6/uL Hgb 14.6 (12.0-16.0) g/dl Hct 43.2 (37.0-47.0) % MCV 86.9 (80.0-98.0) fL MCH 29.4 (27.0-33.0) pg MCHC 33.8 (31.0-35.0) g/dl RDW 12.2 (11.0-16.0) % Plt Count 260 (160-400) X10*3/uL MPV 10.5 (9.4-12.3) fL Immature Gran % (Auto) 0.3 (0.0-0.4) % Neut % (Auto) 82.3 H (45-73) % Lymph % (Auto) 11.7 L (20-40) % [place] % (Auto) 5.1 (2-11) % Eos % (Auto) 0.2 (0-4) % Baso % (Auto) 0.4 (0-2) % Lymph # (Auto) 1.3 (1.2-4.9) X10*3/uL [place] # (Auto) 0.6 (0.1-1.2) X10*3/uL Eos # (Auto) 0.0 (0.0-0.4) X10*3/uL Baso # (Auto) 0.1 (0.0-0.2) X10*3/uL Abs Immat Gran (auto) 0.03 (0.00-0.03) X10*3/uL Absolute Neuts (auto) 9.3 H (2.0-8.3) x10*3/uL Absolute Nucleated RBC 0.000 (0.0-0.012) X10*3/uL Nucleated RBC % (auto) 0.0 (0.0-0.2) /100WBC Sodium 139 (135-145) mmol/L Potassium 4.1 (3.3-5.1) mmol/L Chloride 104 (96-108) mmol/L Carbon Dioxide 24 (22-29) mmol/L Anion Gap 15 (12-20) BUN 12 (9-16) mg/dL Creatinine 0.65 (0.5-1.4) mg/dL Estim Creat Clear Calc 110.8 Estimated GFR > 60 Random Glucose 90 (60-115) mg/dL Calcium 9.1 (8.4-10.2) mg/dL Magnesium 2.0 (1.6-2.6) mg/dL Total Bilirubin 0.5 (0.0-1.0) mg/dL Direct Bilirubin 0.2 (0.0-0.5) mg/dL AST 10 (5-31) U/L ALT 8 (0-31) U/L Alkaline Phosphatase 73 (39-117) U/L Total Protein 6.1 L (6.5-8.0) g/dL Albumin 3.9 (3.5-5.0) g/dL Beta HCG, Quant < 2 mIU/mL ECG Data Attestation: I personally reviewed and interpreted this ECG as follows: ECG interpretation date: 08/03/22 ECG interpretation time: 13:07 Interpretation: Rate: 69 Rhythm: NSR [place]: normal Normal P waves. Normal KELLY. Normal QRS complex. ST T wave : normal no DAI qTC: normal prior studies: no acute ischemia The study has been interpreted contemporaneously by me. . Discharge Plan Discharge Clinical Impression: Generalized seizure Patient Disposition: Home, Self-Care Instructions: Recurrent Seizures in Adults (ED) Additional Instructions: return to ED for any worsening symptoms or concerns please follow up with a neurologist take all of your medications stay with responsible adult tonight you should not be cooking over an open flame, swimming alone Prescriptions: New topiramate 50 mg tablet 50 mg PO .QHS 30 Days Qty: 30 0RF No Action defbwyoajh-pmoioegvor-wfu-cod [Fioricet with Codeine] 40-288-21-30 mg capsule 1 cap PO Q4H PRN (Reason: headache) Qty: 14 0RF dicyclomine 20 mg tablet 20 mg PO QID PRN (Reason: Abdominal cramping) Qty: 20 0RF ondansetron HCl [Zofran] 4 mg tablet 4 mg PO Q8H PRN (Reason: nausea and vomiting) Qty: 10 0RF alum-mag hydroxide-simeth [Maalox Advanced] 200-200-20 mg/5 mL suspension 5 ml PO 5XD PRN (Reason: dyspepsia) Qty: 30 0RF Rx Instructions: administer between meals and at bedtime famotidine [Pepcid] 20 mg tablet 20 mg PO DAILY Qty: 14 0RF Alyacen 135 (28) 1-35 mg-mcg tablet 1 tab PO DAILY azithromycin [Zithromax TRI-ANGELA] 500 mg tablet 500 mg PO DAILY 3 Days Qty: 3 0RF codeine-guaifenesin 10-100 mg/5 mL liquid 10 ml PO Q6H PRN (Reason: cough) Qty: 237 0RF prednisone 20 mg tablet 20 mg PO DAILY 5 Days Qty: 5 0RF Stand Alone Forms: Work/School Release
[2022-08-03 12:48] VITALS: BP 130/88; PULSE 71; RESP 18; TEMP 36.7; O2SAT 98
[2022-08-03] MEDS: LORazepam 1 MG TABLET PO (13:02)
--- NOTE | 2022-08-03 13:03 | PC.NURSE ---
sleeping soundly asnd slow to awaken, skin wpd, alert but deayed responses, medicated as ordered, sr on monitor
[2022-08-03 13:25] LABS: Basophils Absolute Auto 0.1 X10*3/uL (0.0-0.2); Basophils Percent Auto 0.4 % (0-2); Eosinophils Percent Auto 0.2 % (0-4); Hematocrit 43.2 % (37.0-47.0); Hemoglobin 14.6 g/dl (12.0-16.0); Imm Gran Abs Auto 0.03 X10*3/uL (0.00-0.03); Imm Gran Pct Auto 0.3 % (0.0-0.4); Lymphocytes Absolute Auto 1.3 X10*3/uL (1.2-4.9); Lymphocytes Percent Auto 11.7 % (20-40); MANUAL DIFF FLAG NO; Mean Corpuscular HGB Conc 33.8 g/dl (31.0-35.0); Mean Corpuscular Hemoglobin 29.4 pg (27.0-33.0); Mean Corpuscular Volume 86.9 fL (80.0-98.0); Mean Platelet Volume 10.5 fL (9.4-12.3); Monocytes Absolute Auto 0.6 X10*3/uL (0.1-1.2); Monocytes Percent Auto 5.1 % (2-11); Neutrophils Absolute Auto 9.3 x10*3/uL (2.0-8.3); Neutrophils Percent Auto 82.3 % (45-73); Platelet Count 260 X10*3/uL (160-400); Red Blood Count 4.97 X10*6/uL (4.20-5.50); Red Cell Distribution Width 12.2 % (11.0-16.0); White Blood Count 11.3 X10*3/uL (4.8-10.8)
--- NOTE | 2022-08-03 13:37 | PC.NURSE ---
alert but groggy and tired , talking on phone, no other complaints
[2022-08-03 13:46] LABS: Alanine Aminotransferase 8 U/L (0-31); Albumin Level 3.9 g/dL (3.5-5.0); Alkaline Phosphatase 73 U/L (39-117); Anion Gap 15 (12-20); Aspartate Amino Transferase 10 U/L (5-31); Bilirubin Direct 0.2 mg/dL (0.0-0.5); Bilirubin Total 0.5 mg/dL (0.0-1.0); Blood Urea Nitrogen 12 mg/dL (9-16); Calcium 9.1 mg/dL (8.4-10.2); Carbon Dioxide 24 mmol/L (22-29); Chloride 104 mmol/L (96-108); Creatinine Clr Calc Pharmacy 110.8; Estimated Glomerular Filt Rate > 60; Glucose Random 90 mg/dL (60-115); Potassium 4.1 mmol/L (3.3-5.1); Sodium 139 mmol/L (135-145); Total Protein 6.1 g/dL (6.5-8.0)
[2022-08-03 13:54] LABS: HCG Quantitative < 2 mIU/mL
[2022-08-03 15:26] VITALS: BP 124/76; PULSE 74; RESP 18; O2SAT 98
== END 2022-08-03 15:27 | disposition home or self-care (01) ==
PROVIDERS: Emergency Provider Emergency Medicine
DX: R56.9 Unspecified convulsions (principal); R51.9 Headache, unspecified; Z79.899 Other long term (current) drug therapy
CPT/HCPCS: 36415; 70450; 80048; 80076; 83735; 84702; 85025; 93005; 99284

== ENCOUNTER 2022-08-09 12:24 | Emergency (ER) | payer OTHER, SELFPAY ==
--- NOTE | ~2022-08-09 | XR_ITS ---
EXAMINATION: XR CHEST CLINICAL INFORMATION: Chest pain COMPARISON: March 2021. TECHNIQUE: 2 views of the chest were obtained. FINDINGS: No airspace consolidation or vascular congestion observed. The hilar regions are unremarkable. No evidence for pleural effusions. XR/XR chest 2V IMPRESSION: No evidence for acute process.
[2022-08-09 12:30] VITALS: BP 143/95; PULSE 99; RESP 16; TEMP 36.6; O2SAT 98; BMI 21.9
--- NOTE | 2022-08-09 12:35 | ECG_ITS ---
Test Reason : seizures Blood Pressure : / mmHG Vent. Rate : 082 BPM Atrial Rate : 082 BPM P-R Int : 108 ms QRS Dur : 082 ms QT Int : 360 ms P-R-T Axes : 069 042 036 degrees QTc Int : 420 ms Sinus rhythm with sinus arrhythmia with short AR Otherwise normal ECG When compared with ECG of 03-AUG-2022 12:52, No significant change was found Referred By: Generic ED Physician Electronically Signed By:LOLITA OMALLEY
[2022-08-09 13:24] LABS: Appearance Urine Clear; Color Urine Yellow; Glucose Urine UA Negative (Negative); Leukocyte Esterase Urine Small (1+) (Negative); Nitrite Urine Negative (Negative); PH 7.5 (5.0-9.0); Specific Gravity - Urine 1.015 (1.005-1.025); Urine Blood Negative (Negative); Urine Ketones 15 mg/dL (Negative); Urine Protein Negative (Neg-Trace)
[2022-08-09 13:25] LABS: Imm Gran Abs Auto 0.03 X10*3/uL (0.00-0.03); PLT CLUMP 1; SCAN SMEAR FLAG 1; UACC Culture Trigger YES
[2022-08-09 13:26] LABS: UPreg QC Valid YES; Urine Pregnancy NEGATIVE (NEGATIVE)
[2022-08-09 13:27] LABS: Basophils Percent Auto 0.4 % (0-2); Eosinophils Absolute Auto 0.1 X10*3/uL (0.0-0.4); Eosinophils Percent Auto 0.6 % (0-4); Hematocrit 44.3 % (37.0-47.0); Hemoglobin 14.9 g/dl (12.0-16.0); Imm Gran Pct Auto 0.4 % (0.0-0.4); Lymphocytes Absolute Auto 1.8 X10*3/uL (1.2-4.9); Lymphocytes Percent Auto 20.7 % (20-40); MANUAL DIFF FLAG SCAN; Mean Corpuscular HGB Conc 33.6 g/dl (31.0-35.0); Mean Corpuscular Hemoglobin 29.3 pg (27.0-33.0); Monocytes Absolute Auto 0.5 X10*3/uL (0.1-1.2); Monocytes Percent Auto 6.3 % (2-11); Neutrophils Absolute Auto 6.1 x10*3/uL (2.0-8.3); Neutrophils Percent Auto 71.6 % (45-73); Red Blood Count 5.09 X10*6/uL (4.20-5.50); Red Cell Distribution Width 12.1 % (11.0-16.0)
[2022-08-09 13:31] LABS: Prothrombin Time 11.4 SEC (10.0-13.1)
[2022-08-09 13:36] LABS: Alanine Aminotransferase 10 U/L (0-31); Albumin Level 4.3 g/dL (3.5-5.0); Alkaline Phosphatase 84 U/L (39-117); Anion Gap 16 (12-20); Aspartate Amino Transferase 12 U/L (5-31); Bilirubin Direct 0.3 mg/dL (0.0-0.5); Bilirubin Total 0.9 mg/dL (0.0-1.0); Blood Urea Nitrogen 10 mg/dL (9-16); COVID-19 Test Negative (Negative); Calcium 9.3 mg/dL (8.4-10.2); Carbon Dioxide 24 mmol/L (22-29); Chloride 104 mmol/L (96-108); Creatinine Clr Calc Pharmacy 86.6; Estimated Glomerular Filt Rate > 60; Glucose Random 84 mg/dL (60-115); Lipase 20 U/L (8-78); Potassium 3.9 mmol/L (3.3-5.1); Sodium 140 mmol/L (135-145); Total Protein 6.6 g/dL (6.5-8.0)
[2022-08-09 13:39] LABS: Bacteria Urine Trace (None Seen); Hyaline Casts Urine 0-2 /LPF (0-2); RBC Urine 0-2 /HPF (0-2); WBC Urine 0-5 /HPF (0-5)
[2022-08-09 13:40] LABS: Troponin-I High Sensitivity < 3.5 ng/L (<3.5-17.0)
--- NOTE | 2022-08-09 13:54 | ED_ITS ---
HPI - General Adult General Chief complaint: General Medical Stated complaint: Seizures/Kidney pain Time Seen by Provider: 08/09/22 12:50 Source: patient Mode of arrival: ambulatory Limitations: no limitations History of Present Illness HPI narrative: Patient presents emergency department for evaluation of seizure, abdominal pain, and chest pain. She was evaluated in the emergency department 1 week ago after a seizure at work, at that time she had been off of her topiramate for approximately 1 year, stating that she did not like the way it made her feel, and did not receive a new medication from her neurologist. Has been having seizures throughout the past year, she states they typically occur at night. Her seizure last night was with missed by her significant other, uncertain how long this occurred for, clonic movements of arms and legs per report, without urinary or bowel incontinence. She presented to urgent care today for evaluation of left lower quadrant abdominal pain that started at 07:00 o'clock this morning. Is described as aching. Pain has been constant and increasing in intensity. Seems to be radiating towards the lateral side of her abdomen, is not felt in her back at this time. Denies possibility of , urinary frequency/urgency/hesitancy, dysuria, hematuria, history of kidney stones, pelvic pain, abnormal vaginal discharge, concern for STIs, constipation, or diarrhea. Chest pain is located to the left upper chest, has been present for 2 days, has been constant, unable to identify exacerbating or alleviating factors, reports associated shortness of breath that is felt while at rest and on exertion. She additionally states that she is feeling very anxious, given everything that is going on. Related Data Home Medications Medication Instructions Recorded Confirmed norethindrone 1 mg-ethinyl 1 tab PO DAILY 09/22/21 08/09/22 estradiol 35 mcg tablet (Alyacen) albuterol sulfate 90 mcg/actuation 2 puff inhalation Q4H PRN wheezing 08/09/22 08/09/22 aerosol inhaler (ProAir HFA) Previous Rx's Medication Instructions Recorded butalbital 50 mg-acetaminophen 300 1 cap PO Q4H PRN headache #14 caps 03/22/21 mg-caffeine 40 mg-codeine 30 mg cap (Fioricet with Codeine) aluminum-mag hydroxide-simethicone 5 ml PO 5XD PRN dyspepsia #30 mL 09/21/21 200 mg-200 mg-20 mg/5 mL oral susp (Maalox Advanced) dicyclomine 20 mg tablet 20 mg PO QID PRN Abdominal 09/21/21 cramping #20 tabs famotidine 20 mg tablet (Pepcid) 20 mg PO DAILY #14 tabs 09/21/21 ondansetron HCl 4 mg tablet 4 mg PO Q8H PRN nausea and 09/21/21 (Zofran) vomiting #10 tabs azithromycin 500 mg tablet 500 mg PO DAILY 3 days #3 tabs 11/10/21 (Zithromax TRI-ANGELA) codeine 10 mg-guaifenesin 100 mg/5 10 ml PO Q6H PRN cough #237 mL 11/10/21 mL oral liquid prednisone 20 mg tablet 20 mg PO DAILY 5 days #5 tabs 07/23/22 topiramate 50 mg tablet 50 mg PO .QHS 30 days #30 tabs 08/03/22 Allergies Allergy/AdvReac Type Severity Reaction Status Date / Time amoxicillin [AMOXICILLIN] Allergy Unknown HIVES Verified 08/09/22 11:27 [facility] Past Medical History Medical History Epilepsy Social History Social History Alcohol intake: never Patient Tobacco Use Status: Never used Tobacco Advance Directives: No Advance Directives Information Provided: No Physical Exam ED Vital Signs: Vital Signs - 24 hr 08/09/22 12:30 Temperature 98 F Pulse Rate 99 Respiratory Rate 16 Blood Pressure 143/95 H Pulse Oximetry 98 Oxygen Delivery Method Room Air BMI result Body Mass Index 21.9 Course Course Course Narrative: Patient is a 32-year-old female with a past medical history of seizures who presents emergency department today for evaluation of seizure this morning, left lower abdominal pain, also reporting chest pain and shortness of breath. Patient with a recent COVID-19 infection testing positive 2 weeks ago. She is overall well-appearing, no tachycardia, tachypnea, hypoxia, or fever. Abdominal exam is benign. Will obtain CBC to evaluate for leukocytosis/ anemia, CMP to evaluate for abnormal electrolytes /abnormal renal function/ abnormal hepatic function, EKG and troponin to evaluate for ischemia/ACS. Chest x-ray to evaluate for consolidation/ infiltrate/ mass/ pulmonary congestion, Urinalysis and D-dimer. Reevaluation(s) Reevaluation #1: CBC is unremarkable. CMP unremarkable. Troponin <3.5, EKG reveals sinus rhythm, short MO, no acute ischemic changes. Urinalysis reveals a small amount of leukocyte esterase, however is also presence of squamous epithelial cells, negative for nitrate, trace bacteria, no microscopic hematuria. She is without urinary symptoms, suspect this to be contamination at this time. Urine test is negative. Chest x-ray reveals no acute cardiopulmonary process. D-dimer 188, unlikely pulmonary embolism. Discussed these findings with patient, advised that exact etiology of her left lower quadrant abdominal pain is on known at this time, offered abdominal CT for further evaluation however patient declines. It is possible that her pain is musculoskeletal in nature given her seizure activity, advised plan of care for discharge home, will trial a course of NSAIDs, advised outpatient follow-up with her primary care provider, reviewed worrisome signs and symptoms to return back to emergency department for. All questions were answered, and patient was discharged home in stable condition. Time: 14:13 Medical Decision Making Medical Records Medical records reviewed: Yes I reviewed the patient's medical records. Lab Data Lab results reviewed: Yes I reviewed the patient's lab results. Result diagrams: 08/09/22 13:10 08/09/22 13:10 Labs: Lab Results 08/09/22 08/09/22 08/09/22 Range/Units 13:10 13:10 13:10 WBC 8.5 (4.8-10.8) X10*3/uL RBC 5.09 (4.20-5.50) X10*6/uL Hgb 14.9 (12.0-16.0) g/dl Hct 44.3 (37.0-47.0) % MCV 87.0 (80.0-98.0) fL MCH 29.3 (27.0-33.0) pg MCHC 33.6 (31.0-35.0) g/dl RDW 12.1 (11.0-16.0) % Plt Count 245 (160-400) X10*3/uL MPV 11.0 (9.4-12.3) fL Immature Gran % (Auto) 0.4 (0.0-0.4) % Neut % (Auto) 71.6 (45-73) % Lymph % (Auto) 20.7 (20-40) % [place] % (Auto) 6.3 (2-11) % Eos % (Auto) 0.6 (0-4) % Baso % (Auto) 0.4 (0-2) % Lymph # (Auto) 1.8 (1.2-4.9) X10*3/uL [place] # (Auto) 0.5 (0.1-1.2) X10*3/uL Eos # (Auto) 0.1 (0.0-0.4) X10*3/uL Baso # (Auto) 0.0 (0.0-0.2) X10*3/uL Abs Immat Gran (auto) 0.03 (0.00-0.03) X10*3/uL Absolute Neuts (auto) 6.1 (2.0-8.3) x10*3/uL Absolute Nucleated RBC 0.000 (0.0-0.012) X10*3/uL Nucleated RBC % (auto) 0.0 (0.0-0.2) /100WBC Smear Tech's Comments VERIFIED PT (10.0-13.1) SEC INR (0.9-1.1) D-Dimer High Sensitivty NG/ML Sodium 140 (135-145) mmol/L Potassium 3.9 (3.3-5.1) mmol/L Chloride 104 (96-108) mmol/L Carbon Dioxide 24 (22-29) mmol/L Anion Gap 16 (12-20) BUN 10 (9-16) mg/dL Creatinine 0.73 (0.5-1.4) mg/dL Estim Creat Clear Calc 86.6 Estimated GFR > 60 Random Glucose 84 (60-115) mg/dL Calcium 9.3 (8.4-10.2) mg/dL Total Bilirubin 0.9 (0.0-1.0) mg/dL Direct Bilirubin 0.3 (0.0-0.5) mg/dL AST 12 (5-31) U/L ALT 10 (0-31) U/L Alkaline Phosphatase 84 (39-117) U/L Total Creatine Kinase (26-140) U/L Troponin I High Sens < 3.5 (<3.5-17.0) ng/L Total Protein 6.6 (6.5-8.0) g/dL Albumin 4.3 (3.5-5.0) g/dL Lipase 20 (8-78) U/L TSH (0.32-4.0) uIU/mL Urine Color Urine Appearance Urine pH (5.0-9.0) Ur Specific [place] (1.005-1.025) Urine Protein (Neg-Trace) mg/dL Urine Glucose (UA) (Negative) mg/dL Urine Ketones (Negative) mg/dL Urine Blood (Negative) Urine Nitrite (Negative) Ur Leukocyte Esterase (Negative) Urine RBC (0-2) /HPF Urine WBC (0-5) /HPF Ur Squamous Epith Cells (0-2) /HPF Urine Bacteria (None Seen) Hyaline Casts (0-2) /LPF Urine Test (NEGATIVE) COVID-19 (CAROLYNE) (Negative) COVID-19 Clin Com 08/09/22 08/09/22 08/09/22 Range/Units 13:10 13:10 13:10 WBC (4.8-10.8) X10*3/uL RBC (4.20-5.50) X10*6/uL Hgb (12.0-16.0) g/dl Hct (37.0-47.0) % MCV (80.0-98.0) fL MCH (27.0-33.0) pg MCHC (31.0-35.0) g/dl RDW (11.0-16.0) % Plt Count (160-400) X10*3/uL MPV (9.4-12.3) fL Immature Gran % (Auto) (0.0-0.4) % Neut % (Auto) (45-73) % Lymph % (Auto) (20-40) % [place] % (Auto) (2-11) % Eos % (Auto) (0-4) % Baso % (Auto) (0-2) % Lymph # (Auto) (1.2-4.9) X10*3/uL [place] # (Auto) (0.1-1.2) X10*3/uL Eos # (Auto) (0.0-0.4) X10*3/uL Baso # (Auto) (0.0-0.2) X10*3/uL Abs Immat Gran (auto) (0.00-0.03) X10*3/uL Absolute Neuts (auto) (2.0-8.3) x10*3/uL Absolute Nucleated RBC (0.0-0.012) X10*3/uL Nucleated RBC % (auto) (0.0-0.2) /100WBC Smear Tech's Comments PT (10.0-13.1) SEC INR (0.9-1.1) D-Dimer High Sensitivty NG/ML Sodium (135-145) mmol/L Potassium (3.3-5.1) mmol/L Chloride (96-108) mmol/L Carbon Dioxide (22-29) mmol/L Anion Gap (12-20) BUN (9-16) mg/dL Creatinine (0.5-1.4) mg/dL Estim Creat Clear Calc Estimated GFR Random Glucose (60-115) mg/dL Calcium (8.4-10.2) mg/dL Total Bilirubin (0.0-1.0) mg/dL Direct Bilirubin (0.0-0.5) mg/dL AST (5-31) U/L ALT (0-31) U/L Alkaline Phosphatase (39-117) U/L Total Creatine Kinase 34 (26-140) U/L Troponin I High Sens (<3.5-17.0) ng/L Total Protein (6.5-8.0) g/dL Albumin (3.5-5.0) g/dL Lipase (8-78) U/L TSH (0.32-4.0) uIU/mL Urine Color Yellow Urine Appearance Clear Urine pH 7.5 (5.0-9.0) Ur Specific [place] 1.015 (1.005-1.025) Urine Protein Negative (Neg-Trace) mg/dL Urine Glucose (UA) Negative (Negative) mg/dL Urine Ketones 15 (Negative) mg/dL Urine Blood Negative (Negative) Urine Nitrite Negative (Negative) Ur Leukocyte Esterase Small (1+) H (Negative) Urine RBC 0-2 (0-2) /HPF Urine WBC 0-5 (0-5) /HPF Ur Squamous Epith Cells 3-5 (0-2) /HPF Urine Bacteria Trace (None Seen) Hyaline Casts 0-2 (0-2) /LPF Urine Test NEGATIVE (NEGATIVE) COVID-19 (CAROLYNE) (Negative) COVID-19 Clin Com 08/09/22 08/09/22 08/09/22 Range/Units 13:10 13:10 13:10 WBC (4.8-10.8) X10*3/uL RBC (4.20-5.50) X10*6/uL Hgb (12.0-16.0) g/dl Hct (37.0-47.0) % MCV (80.0-98.0) fL MCH (27.0-33.0) pg MCHC (31.0-35.0) g/dl RDW (11.0-16.0) % Plt Count (160-400) X10*3/uL MPV (9.4-12.3) fL Immature Gran % (Auto) (0.0-0.4) % Neut % (Auto) (45-73) % Lymph % (Auto) (20-40) % [place] % (Auto) (2-11) % Eos % (Auto) (0-4) % Baso % (Auto) (0-2) % Lymph # (Auto) (1.2-4.9) X10*3/uL [place] # (Auto) (0.1-1.2) X10*3/uL Eos # (Auto) (0.0-0.4) X10*3/uL Baso # (Auto) (0.0-0.2) X10*3/uL Abs Immat Gran (auto) (0.00-0.03) X10*3/uL Absolute Neuts (auto) (2.0-8.3) x10*3/uL Absolute Nucleated RBC (0.0-0.012) X10*3/uL Nucleated RBC % (auto) (0.0-0.2) /100WBC Smear Tech's Comments PT 11.4 (10.0-13.1) SEC INR 1.0 (0.9-1.1) D-Dimer High Sensitivty 188 NG/ML Sodium (135-145) mmol/L Potassium (3.3-5.1) mmol/L Chloride (96-108) mmol/L Carbon Dioxide (22-29) mmol/L Anion Gap (12-20) BUN (9-16) mg/dL Creatinine (0.5-1.4) mg/dL Estim Creat Clear Calc Estimated GFR Random Glucose (60-115) mg/dL Calcium (8.4-10.2) mg/dL Total Bilirubin (0.0-1.0) mg/dL Direct Bilirubin (0.0-0.5) mg/dL AST (5-31) U/L ALT (0-31) U/L Alkaline Phosphatase (39-117) U/L Total Creatine Kinase (26-140) U/L Troponin I High Sens (<3.5-17.0) ng/L Total Protein (6.5-8.0) g/dL Albumin (3.5-5.0) g/dL Lipase (8-78) U/L TSH 0.85 (0.32-4.0) uIU/mL Urine Color Urine Appearance Urine pH (5.0-9.0) Ur Specific [place] (1.005-1.025) Urine Protein (Neg-Trace) mg/dL Urine Glucose (UA) (Negative) mg/dL Urine Ketones (Negative) mg/dL Urine Blood (Negative) Urine Nitrite (Negative) Ur Leukocyte Esterase (Negative) Urine RBC (0-2) /HPF Urine WBC (0-5) /HPF Ur Squamous Epith Cells (0-2) /HPF Urine Bacteria (None Seen) Hyaline Casts (0-2) /LPF Urine Test (NEGATIVE) COVID-19 (CAROLYNE) Negative (Negative) COVID-19 Clin Com See Note Imaging Data Chest x-ray: Radiologist's impression: XR/XR chest 2V IMPRESSION: No evidence for acute process. ECG Data Attestation: I personally reviewed and interpreted this ECG as follows: Interpretation: Rate:82 Rhythm:? Sinus rhythm Normal P waves.? Short KELLY, 108?? Normal QRS complex.?? ST T wave :??No ST elevation, ST depression, T-wave inversion qTC: 420 prior studies:?Aug 2022 The study has been interpreted contemporaneously by me. Discharge Plan Discharge Clinical Impression: Abdominal pain Patient Disposition: Home, Self-Care Instructions: Abdominal Pain (ED) Additional Instructions: You can take ibuprofen 200 mg, 3 tablets (600mg) every 6-8 hours as needed for pain, in addition to Tylenol 500 mg, 2 tablets (1,000mg) every 4-6 hours as needed for pain, but not to exceed 3 doses daily (3,000mg).? Contact your primary care provider to arrange for follow-up. Return to the emergency department any new or worsening symptoms or concerns. Prescriptions: No Action [id number] [Fioricet with Codeine] [id number] mg capsule 1 cap PO Q4H PRN (Reason: headache) Qty: 14 0RF dicyclomine 20 mg tablet 20 mg PO QID PRN (Reason: Abdominal cramping) Qty: 20 0RF ondansetron HCl [Zofran] 4 mg tablet 4 mg PO Q8H PRN (Reason: nausea and vomiting) Qty: 10 0RF alum-mag hydroxide-simeth [Maalox Advanced] 200-200-20 mg/5 mL suspension 5 ml PO 5XD PRN (Reason: dyspepsia) Qty: 30 0RF Rx Instructions: administer between meals and at bedtime famotidine [Pepcid] 20 mg tablet 20 mg PO DAILY Qty: 14 0RF Alyacen 135 (28) 1-35 mg-mcg tablet 1 tab PO DAILY azithromycin [Zithromax TRI-ANGELA] 500 mg tablet 500 mg PO DAILY 3 Days Qty: 3 0RF codeine-guaifenesin 10-100 mg/5 mL liquid 10 ml PO Q6H PRN (Reason: cough) Qty: 237 0RF topiramate 50 mg tablet 50 mg PO .QHS 30 Days Qty: 30 0RF prednisone 20 mg tablet 20 mg PO DAILY 5 Days Qty: 5 0RF albuterol sulfate [ProAir HFA] 90 mcg/actuation HFA aerosol inhaler 2 puff inhalation Q4H PRN (Reason: wheezing) Stand Alone Forms: Work/School Release Interventions: ED Discharge Assessment Last Done: 08/09/22 15:13 Discharge Date/Time: 08/09/22 15:14
[2022-08-09 14:05] LABS: TSH reflex Free T4 0.85 uIU/mL (0.32-4.0)
[2022-08-09 14:07] LABS: Platelet Count 245 X10*3/uL (160-400); White Blood Count 8.5 X10*3/uL (4.8-10.8)
[2022-08-09 14:17] LABS: D Dimer High Sensitivity 188 NG/ML
[2022-08-09 15:36] LABS: SLIDE REVIEW VERIFIED
== END 2022-08-09 15:14 | disposition home or self-care (01) ==
PROVIDERS: Nurse Practitioner Family; Physician Assistant Medical; Emergency Provider Emergency Medicine Emergency Medical Services
DX: R56.9 Unspecified convulsions (principal); R10.9 Unspecified abdominal pain; R06.02 Shortness of breath; R07.89 Other chest pain; Z20.822 Contact with and (suspected) exposure to COVID-19; Z79.899 Other long term (current) drug therapy
CPT/HCPCS: 36415; 71046; 80048; 80076; 81001; 81025; 82550; 83690; 84443; 84484; 85025; 85379; 85610; 87086; 87635; 93005; 99283; 99284

== ENCOUNTER 2022-09-18 08:33 | Emergency (ER) | payer OTHER, SELFPAY ==
[2022-09-18 08:35] VITALS: BP 116/77; PULSE 90; RESP 18; TEMP 36.6; O2SAT 100; BMI 23.3
--- NOTE | 2022-09-18 09:29 | ED_ITS ---
HPI - General Adult General Chief complaint: Anxiety Stated complaint: anxiety, depression Time Seen by Provider: 09/18/22 09:28 Source: patient Mode of arrival: ambulatory Limitations: no limitations History of Present Illness HPI narrative: Patient is a 32 year old assigned female at with a history of anxiety and depression presenting to the emergency department today with worsening anxiety. Patient states that over the last few weeks she has been dealing with much more stress and anxiety. Patient states that her work place is very toxic and that stress is making her anxiety worse. Patient states that she takes lexapro. Patient denies any SI or HI. Patient denies any dizziness, lightheadedness, abdominal pain, nausea, vomiting, fever, chills, blurry vision, double vision, loss of vision, chest pain, difficulty breathing, shortness of breath, back pain, night sweats, pain with urination, increased urinary frequency, increased urinary urgency, blood in her urine or stool, syncope or a near syncopal episode, recent trauma or falls, bowel incontinence, bladder incontinence, bowel retention, bladder retention, or any other complaints at this time. Onset (ago): week(s) Severity: mild Severity scale (1-10): 3 Relieving factors: none Exacerbating factors: none Associated symptoms: denies other symptoms Treatments prior to arrival: none Related Data Home Medications Medication Instructions Recorded Confirmed norethindrone 1 mg-ethinyl 1 tab PO DAILY 09/22/21 08/09/22 estradiol 35 mcg tablet (Alyacen) albuterol sulfate 90 mcg/actuation 2 puff inhalation Q4H PRN wheezing 08/09/22 08/09/22 aerosol inhaler (ProAir HFA) Previous Rx's Medication Instructions Recorded butalbital 50 mg-acetaminophen 300 1 cap PO Q4H PRN headache #14 caps 03/22/21 mg-caffeine 40 mg-codeine 30 mg cap (Fioricet with Codeine) aluminum-mag hydroxide-simethicone 5 ml PO 5XD PRN dyspepsia #30 mL 09/21/21 200 mg-200 mg-20 mg/5 mL oral susp (Maalox Advanced) dicyclomine 20 mg tablet 20 mg PO QID PRN Abdominal 09/21/21 cramping #20 tabs famotidine 20 mg tablet (Pepcid) 20 mg PO DAILY #14 tabs 09/21/21 ondansetron HCl 4 mg tablet 4 mg PO Q8H PRN nausea and 09/21/21 (Zofran) vomiting #10 tabs azithromycin 500 mg tablet 500 mg PO DAILY 3 days #3 tabs 11/10/21 (Zithromax TRI-ANGELA) codeine 10 mg-guaifenesin 100 mg/5 10 ml PO Q6H PRN cough #237 mL 11/10/21 mL oral liquid prednisone 20 mg tablet 20 mg PO DAILY 5 days #5 tabs 07/23/22 topiramate 50 mg tablet 50 mg PO .QHS 30 days #30 tabs 08/03/22 escitalopram oxalate 10 mg tablet 10 mg PO DAILY #30 tabs 09/18/22 (Lexapro) quetiapine 25 mg tablet (Seroquel) 25 mg PO TID #45 tabs 09/18/22 Allergies Allergy/AdvReac Type Severity Reaction Status Date / Time amoxicillin [AMOXICILLIN] Allergy Unknown HIVES Verified 08/09/22 11:27 Review of Systems Constitutional: Constitutional: Reports no additional constitutional complaints, Denies chills, Denies fever(s) and Denies night sweats Eyes: Eyes: Reports no additional eye complaints, Denies blurry vision, Denies change in vision, Denies diplopia, Denies eye discharge, Denies loss of vision and Denies eye pain ENT: Denies dizziness Cardiovascular: Cardiovascular: Reports no additional cardiovascular complaints, Denies chest pain, Denies lightheadedness, Denies Loss of Consciousness and Denies dyspnea Respiratory: Respiratory: Reports no additional respiratory complaints and Denies dyspnea Gastrointestinal: Gastrointestinal: Reports no additional gastrointestinal complaints, Denies abdominal pain, Denies melena, Denies hematochezia, Denies change in bowel habits and Denies change in stool character Genitourinary: Genitourinary: Denies hematuria, Denies urinary frequency, Denies dysuria, Denies urinary incontinence, Denies urinary hesitancy and Denies urinary urgency Musculoskeletal: Musculoskeletal: Reports no additional musculoskeletal complaints, Denies numbness and Denies tingling Neurologic: Denies dizziness, Denies loss of vision, Denies numbness and Denies tingling Psychiatric: Psychiatric: Reports no additional psychiatric complaints, Reports anxiety and Reports depression Endocrine: Endocrine: Reports no additional endocrine complaints Hematologic/Lymphatic: Hematologic/Lymphatic: Reports no additional hematologic/lymphatic complaints Allergic/Immunologic: Allergic/Immunologic: Reports no additional allergic /immunologic complaints [facility] [place] Past Medical History Attestation statement: The following information was validated with the patient. Source: old records reviewed Medical History Epilepsy Social History Social History Alcohol intake: never Patient Tobacco Use Status: Never used Tobacco Use of substances other than those prescribed or required for medical reasons: No Advance Directives: No Advance Directives Information Provided: No Physical Exam ED Vital Signs: Vital Signs - 24 hr 09/18/22 08:35 09/18/22 11:15 Temperature 98 F Pulse Rate 90 96 Respiratory Rate 18 18 Blood Pressure 116/77 117/61 Pulse Oximetry 100 98 Oxygen Delivery Method Room Air Room Air BMI result Body Mass Index 23.3 Const General: cooperative, no acute distress, alert and awake Nutritional Appearance: well nourished Orientation/consciousness: patient oriented x3 Limitations: no limitations HENMT Head: Yes normal to inspection and Yes atraumatic Ears: hearing grossly normal bilaterally and external ears normal General nose exam: Normal external nose present, no nasal discharge noted and no epistaxis Face and sinus: Yes normal facial exam, No abrasion and No laceration Mouth: Normal oral and palatal mucosa present, no drooling and no muffled voice Eyes General: appearance normal, both eyes and all related structures Periorbital: periorbital findings normal Eyelids: Yes eyelids normal Conjunctivae: conjunctivae normal Pupils: Equal, round and reactive pupils present EOM: EOMs intact bilaterally Neck Neck: Yes normal visual inspection, Yes full ROM and Yes no lymphadenopathy Chest Chest palpation & inspection: normal inspection of the chest Resp Effort & Inspection: normal respiratory effort and able to speak in complete sentences Auscultation: clear to auscultation bilaterally Cardio Rate: regular rate Rhythm: regular rhythm GI Inspection: Yes normal to inspection Neuro General: patient oriented x3 and moves all extremities Cranial nerves: Yes Equal, round and reactive pupils present Cognition (Neuro): normal cognition Motor exam (neuro): 5/5 motor strength present throughout Sensory Exam: Normal double simultaneous stimulation for sensation Coordination: [id number] test normal Extrem General: Yes normal to inspection, Yes full ROM and Yes capillary refill normal Psych Appearance: grossly normal Mental Status: mental status grossly normal Affect: normal affect Attitude: cooperative Thought process: Normal thought process present Thought content: Normal thought content present Insight: Good insight present (Psych) Medical Decision Making MDM Narrative Medical decision making narrative: Patient is a 32 year old assigned female at with a history of anxiety and depression presenting to the emergency department today with increased anxiety. Patient's physical exam was unremarkable. I explained my physical exam findings to the patient. I answered all questions asked by the patient. Patient spoke with psychiatry who made some medication adjustments for the patient. I stressed the importance of the patient taking her medication as prescribed. I stressed the importance of the patient following up with her primary care provider. I stressed the importance of the patient returning to the emergency department immediately if her symptoms were to worsen or if she were to develop any dizziness, shortness of breath, difficulty breathing, chest pain, blurry vision, loss of vision, nausea, vomiting, abdominal pain, fever, chills, back pain, or any other complaints. Patient verbalized agreement and understanding with this treatment plan and discharge. Medical Records Medical records reviewed: Yes I reviewed the patient's medical records. Discharge Plan Discharge Clinical Impression: Acute anxiety Patient Disposition: Home, Self-Care Instructions: Anxiety (ED) Additional Instructions: Follow up with your primary care provider. Return to the emergency department immediately if your symptoms worsen or if you develop any dizziness, shortness of breath, difficulty breathing, chest pain, blurry vision, loss of vision, nausea, vomiting, abdominal pain, fever, chills, back pain, or any other complaints. Prescriptions: New escitalopram oxalate [Lexapro] 10 mg tablet 10 mg PO DAILY Qty: 30 0RF quetiapine [Seroquel] 25 mg tablet 25 mg PO TID Qty: 45 0RF No Action [id number] [Fioricet with Codeine] 40-839-11-30 mg capsule 1 cap PO Q4H PRN (Reason: headache) Qty: 14 0RF dicyclomine 20 mg tablet 20 mg PO QID PRN (Reason: Abdominal cramping) Qty: 20 0RF ondansetron HCl [Zofran] 4 mg tablet 4 mg PO Q8H PRN (Reason: nausea and vomiting) Qty: 10 0RF alum-mag hydroxide-simeth [Maalox Advanced] 200-200-20 mg/5 mL suspension 5 ml PO 5XD PRN (Reason: dyspepsia) Qty: 30 0RF Rx Instructions: administer between meals and at bedtime famotidine [Pepcid] 20 mg tablet 20 mg PO DAILY Qty: 14 0RF Alyacen (28) 1-35 mg-mcg tablet 1 tab PO DAILY azithromycin [Zithromax TRI-ANGELA] 500 mg tablet 500 mg PO DAILY 3 Days Qty: 3 0RF codeine-guaifenesin 10-100 mg/5 mL liquid 10 ml PO Q6H PRN (Reason: cough) Qty: 237 0RF topiramate 50 mg tablet 50 mg PO .QHS 30 Days Qty: 30 0RF prednisone 20 mg tablet 20 mg PO DAILY 5 Days Qty: 5 0RF albuterol sulfate [ProAir HFA] 90 mcg/actuation HFA aerosol inhaler 2 puff inhalation Q4H PRN (Reason: wheezing) Referrals: [facility] [place] Family Medicine [Provider Group] (Call to establish and follow up with a primary care provider. If you already have a primary care provider, follow up with them. ) [facility] [place] Primary Care, [facility] [Provider Group] (Call to establish and follow up with a primary care provider. If you already have a primary care provider, fo llow up with them. ) [facility] [place] Primary Care,Sergei [Provider Group] (Call to establish and follow up with a primary care provider. If you already have a primary care provider, follow up with them. ) Stand Alone Forms: Work/School Release Print Language: Persian
--- NOTE | 2022-09-18 11:00 | PC.NURSE ---
[place] psychology associate at bedside talking to pt
--- NOTE | 2022-09-18 11:01 | P.CNPS_ITS ---
History of Present Illness Date of Service: 09/18/2022 Chief Complaint: anxiety, depression Reason for Consult: increase depression and anxiety Discussed with referring provider: Yes Sources of Information: patient interviewed, chart reviewed and crisis/core team assessment reviewed HPI Narrative: Ms. Ames is a 32 year-old woman with hx of MDD, TRISTIAN who self [place] [facility] [place] [facility] [place] due to [place]. Pt sees neurologist, Dr. Marrero, reporting she has fronto- parietal seizures but also reports she has been told, stress increasing seizure activity recently. Pt reports situational stress related to unhealthy dynamics at work. She also reports being main support for his fiance and her father both recovering from substance use. Pt endorses feeling overwhelmed, overly anxious, restless, depressed, but denies any suicidal or homicidal ideation. She reports fair sleep although reports seroquel 50mg po qhs has been helpful. Pt reports she has been on lexapro 5mg po daily for about 2 months, currently prescribed by neurology. She denied hx of psychosis, s/s of hypomania/leonardo. Pt reports she is on wait list for [facility] to see therapist and psychiatrist. Past Psychiatric History: Inpatient: none OP: none currently but reports in past had services through [facility] Suicide attempts: none Past med trials: lexapro, seroquel. Medical Evaluation Reviewed: Yes [facility] Medical History Epilepsy Diagnostics Vital Signs (24Hr): Vital Signs - 24 hr 09/18/22 08:35 Temperature 98 F Pulse Rate 90 Respiratory Rate 18 Blood Pressure 116/77 Pulse Oximetry 100 Oxygen Delivery Method Room Air BMI result Body Mass Index 23.3 Mental Status Exam Mental Status Exam Narrative: Appearance: casually groomed, fair hygiene in NAD Behavior: cooperative psychomotor: no agitation or retardation noted Speech: clear, normal rate/rhythm/volume, spontaneous Thought process: linear Thought content:no s/s of psychosis or delusions, overwhelmed with work, looking to connect with services. Mood: overwhelmed Affect: congruent SI:denies HI:denies VH/AH:none Delusions:none Insight/judgment:intact x 2. Memory/cog: alert, oriented x 3. grossly intact to conversational testing. Medications Allergies Allergies Allergy/AdvReac Type Severity Reaction Status Date / Time amoxicillin [AMOXICILLIN] Allergy Unknown HIVES Verified 08/09/22 11:27 Assessment & Plan Assessment & Plan (1) MDD (major depressive disorder), recurrent episode, moderate: Status: Acute Code(s): F33.1 - Major depressive disorder, recurrent, moderate (2) TRISTIAN (generalized anxiety disorder): Status: Acute Code(s): F41.1 - Generalized anxiety disorder Plan Ms. Ames is a 32 year-old woman with hx of MDD, TRISTIAN, seizure d/o followed by Dr. Marrero. Pt recently started on keppra (about 2 months ago) for seizure d/o. Pt reports she has been told by neurologist that stress of last months has significantly increase seizure activity. Pt also started about 2 months ago on lexapro 5 mg po daily. She has been on seroquel 50mg po qhs, which she reports has been helpful for sleep and anxious mood. We discussed risks, benefits and alternative treatment options. PLAN 1. No need for inpt level of care. No imminent safety concerns in terms of suicidality/homicidality. 2. Pt to follow up with wait list at [facility]. 3. Discussed increasing lexapro to 10mg po daily. Sent Rx to pharmacy #30, no refills. 4. Discussed increasingly seroquel to 25mg po TID- if too sedating during day, pt to continue night time dose of 50mg po qhs. We discussed seroquel lowers seizure threshold, dose dependent, monitor for increase in seizure activity. Sent RX 25mg po TID #45, no refills. I spent minutes with the patient and/or on the patient floor today, greater than?50% of which was spent counseling/coordinating care.
[2022-09-18 11:15] VITALS: BP 117/61; PULSE 96; RESP 18; O2SAT 98
== END 2022-09-18 12:46 | disposition home or self-care (01) ==
PROVIDERS: Emergency Provider Emergency Medicine Emergency Medical Services
DX: F33.1 Major depressive disorder, recurrent, moderate (principal); F41.8 Other specified anxiety disorders; F43.0 Acute stress reaction; Z79.899 Other long term (current) drug therapy
CPT/HCPCS: 99283; 99284

== ENCOUNTER 2022-11-21 09:09 | Emergency (ER) | payer OTHER, SELFPAY ==
--- NOTE | ~2022-11-21 | XR_ITS ---
EXAMINATION: XR CHEST CLINICAL INFORMATION: Chest pain. Dyspnea. COMPARISON: Chest x-ray 08/09/2022 TECHNIQUE: Frontal view of the chest was obtained. FINDINGS: The lungs are well-expanded with bibasilar atelectasis. The heart size and pulmonary vascularity is normal. No gross bony abnormality. XR/XR chest 1V IMPRESSION: Bibasilar atelectasis, new since last exam 08/07/2022.
--- NOTE | ~2022-11-21 | CT_ITS ---
EXAMINATION: CT ABDOMEN AND PELVIS WITH CONTRAST CLINICAL INFORMATION: Diffuse abdominal pain. COMPARISON: Ultrasound abdomen 11/21/2022, CT abdomen 09/21/2021 and 06/19/2019. TECHNIQUE: Multidetector volumetric images were obtained from the superior aspect of the liver through the pubic symphysis following administration 85 mL of Omnipaque 350 intravenous contrast. Sagittal and coronal reformatted images were obtained on the technologist's workstation. Oral contrast: No This CT examination was performed using dose optimization techniques as appropriate, variously including the following: *Automated exposure control *Adjustment of mA and/or kV according to patient size (this includes techniques or standardized protocols for targeted exams where dose is matched to indication/reason for exam; i.e. extremities or head) *Use of iterative reconstruction technique DLP: 409 mGy-cm FINDINGS: LUNG BASES: Scattered bibasilar is disc atelectasis. No airspace consolidation or effusion. LIVER, GALLBLADDER, AND BILIARY TREE: Normal in size and smooth in contour. There are 2 small hypodense foci segment 2 left hepatic lobe likely cysts similar to prior exam 09/21/2021. The gallbladder is unremarkable with no evidence of radiopaque gallstones, gallbladder wall thickening, or obvious pericholecystic inflammatory changes. PANCREAS: Unremarkable. SPLEEN: Unremarkable. ADRENAL GLANDS: Unremarkable. KIDNEYS AND URETERS: The kidneys enhance symmetrically and are of normal size and contour. There is no hydronephrosis, hydroureter, or perinephric stranding. Suspect several punctate nonobstructing intrarenal calculi under 3 mm. No ureteral calculi. Small cyst again noted lateral interpolar left kidney approximately 1 cm. No additional imaging follow-up recommended. BLADDER: Unremarkable. GASTROINTESTINAL TRACT: No bowel obstruction or focal inflammatory changes in bowel or mesentery. No pneumatosis or free air. The appendix appears collapsed and normal. No periappendiceal or pericecal inflammatory stranding. ABDOMINAL WALL: No significant hernia is appreciated. LYMPH NODES: No retroperitoneal or pelvic adenopathy. There are some mesenteric nodes right lower quadrant medial to the cecum which are stable to decreased from prior CT exams dating back to 2019. VASCULAR: Unremarkable. PELVIC VISCERA: Unremarkable. OSSEOUS STRUCTURES: Unremarkable. CT/CT abdomen pelvis w IV con IMPRESSION: 1. No bowel obstruction or focal acute inflammatory changes in bowel or mesentery. Normal appendix. 2. No hydronephrosis or perinephric stranding. A few punctate nonobstructing intrarenal calculi.
--- NOTE | ~2022-11-21 | US_ITS ---
EXAMINATION: US ABDOMEN COMPLETE CLINICAL INFORMATION: Diffuse abdominal pain tenderness, fever and nausea.. COMPARISON: Ultrasound abdomen complete 09/22/2021 TECHNIQUE: Real-time imaging of the abdominal viscera. FINDINGS: PANCREAS: Normal. ABDOMINAL AORTA: The proximal, mid, and distal segments are normal in caliber. INFERIOR VENA CAVA: Visualized portions are normal. LIVER: The liver is normal in size. The liver contour is normal. Parenchymal echogenicity is normal. No focal hepatic lesion. There is no intrahepatic biliary duct dilatation seen. GALLBLADDER: The gallbladder is physiologically distended without evidence of stones, sludge, wall thickening or pericholecystic fluid. There are at least 3 nonmobile echogenic polyps with the largest polyp measuring 0.3 x 0.2 x 0.2 cm. There is wall thickness is 0.2 cm. COMMON BILE DUCT: Normal in caliber measuring 0.3 cm in diameter. RIGHT KIDNEY: There is mild pelvic fullness without hydronephrosis. No renal calculi or focal parenchymal lesions. The kidney measures 10.1 cm in maximum dimension. LEFT KIDNEY: There is mild pelvic fullness.. No renal calculi or focal parenchymal lesions. The kidney measures 11.0 cm in maximum dimension. SPLEEN: Normal. The spleen measures 9.8 cm in maximum dimension. FREE FLUID: None. US/US abdomen complete IMPRESSION: 1. At least 3 gallbladder polyps. No echogenic stones or wall thickening. 2. Mild bilateral pelvic fullness without caliectasis or hydronephrosis. 3. Rest of the abdominal ultrasound is unremarkable.
[2022-11-21 09:11] VITALS: BP 131/79; PULSE 120; RESP 18; TEMP 37.3; O2SAT 99; BMI 23.2
--- NOTE | 2022-11-21 09:19 | ECG_ITS ---
Test Reason : dyspnea Blood Pressure : / mmHG Vent. Rate : 123 BPM Atrial Rate : 123 BPM P-R Int : 114 ms QRS Dur : 096 ms QT Int : 310 ms P-R-T Axes : 056 003 030 degrees QTc Int : 443 ms Sinus tachycardia Incomplete right bundle branch block Borderline ECG When compared with ECG of 09-AUG-2022 12:56, Vent. rate has increased BY 41 BPM Referred By: Generic ED Physician Electronically Signed By:Nain Light
[2022-11-21 09:58] LABS: Influenza A PCR NEGATIVE (Negative); Influenza B PCR NEGATIVE (Negative); Resp Syncy Virus RNA Qual PCR NEGATIVE (Negative); SARS COV2 PCR INHOUSE NEGATIVE (Negative)
--- NOTE | 2022-11-21 10:19 | ED_ITS ---
HPI - URI/Sore Throat General Chief Complaint: Dyspnea Stated Complaint: Diff Breathing Body Aches Time Seen by Provider: 11/21/22 09:39 Source: patient Mode of arrival: ambulatory Limitations: no limitations History of Present Illness HPI Narrative: 32-year-old a sign female at [facility] with history of anxiety depression presenting to the ED with multiple complaints which include chills, fatigue, malaise, fevers, nasal congestion / rhinorrhea, cough with sputum production, nausea, diffuse abdominal pain, back pain, hip pain all started yesterday worse today. Reports increased anxiety due to this. Known sick contacts at work. Otherwise she denies any dizziness, neck pain / stiffness, chest pain or shortness of breath, dyspnea on exertion, orthopnea, palpitations, paresthesias, vomiting/diarrhea, flank pain, dysuria, hematuria, abnormal vaginal discharge, lower extremity edema or calf tenderness, recent travel or any other symptoms complaints or concerns at this time. MD elicited complaint: fever, cough, rhinorrhea and nasal congestion Onset (ago): hour(s) (24) Consistency: constant and progressively worsening Severity: moderate Description of mucous: clear, watery, yellow and other ( Blood tinge) Able to tolerate fluids by mouth: Yes Exacerbating factors: nothing Relieving factors: nothing Context: sick contacts Associated symptoms: fever, chills, myalgias, rhinorrhea, nasal congestion, cough, abdominal pain and nausea Treatments prior to arrival: none Related Data Home Medications Medication Instructions Recorded Confirmed norethindrone 1 mg-ethinyl 1 tab PO DAILY 09/22/21 08/09/22 estradiol 35 mcg tablet (Alyacen) albuterol sulfate 90 mcg/actuation 2 puff inhalation Q4H PRN wheezing 08/09/22 08/09/22 aerosol inhaler (ProAir HFA) Previous Rx's Medication Instructions Recorded butalbital 50 mg-acetaminophen 300 1 cap PO Q4H PRN headache #14 caps 03/22/21 mg-caffeine 40 mg-codeine 30 mg cap (Fioricet with Codeine) aluminum-mag hydroxide-simethicone 5 ml PO 5XD PRN dyspepsia #30 mL 09/21/21 200 mg-200 mg-20 mg/5 mL oral susp (Maalox Advanced) dicyclomine 20 mg tablet 20 mg PO QID PRN Abdominal 09/21/21 cramping #20 tabs famotidine 20 mg tablet (Pepcid) 20 mg PO DAILY #14 tabs 09/21/21 ondansetron HCl 4 mg tablet 4 mg PO Q8H PRN nausea and 09/21/21 (Zofran) vomiting #10 tabs azithromycin 500 mg tablet 500 mg PO DAILY 3 days #3 tabs 11/10/21 (Zithromax TRI-ANGELA) codeine 10 mg-guaifenesin 100 mg/5 10 ml PO Q6H PRN cough #237 mL 11/10/21 mL oral liquid prednisone 20 mg tablet 20 mg PO DAILY 5 days #5 tabs 07/23/22 topiramate 50 mg tablet 50 mg PO .QHS 30 days #30 tabs 08/03/22 escitalopram oxalate 10 mg tablet 10 mg PO DAILY #30 tabs 09/18/22 (Lexapro) quetiapine 25 mg tablet (Seroquel) 25 mg PO TID #45 tabs 09/18/22 cyclobenzaprine 10 mg tablet 10 mg PO Q8H #14 tabs 11/21/22 ibuprofen 800 mg tablet 800 mg PO Q8H PRN pain #14 tabs 11/21/22 ondansetron HCl 4 mg tablet 4 mg PO Q8H #14 tabs 11/21/22 Allergies Allergy/AdvReac Type Severity Reaction Status Date / Time amoxicillin [AMOXICILLIN] Allergy Unknown HIVES Verified 08/09/22 11:27 Review of Systems Review of Systems: Constitutional : No Weight loss, + Fever, + Chills, No Night Sweats, + Fatigue, + Malaise ENT/Mouth : No Hearing loss, No Ear Pain, + Nasal Congestion, No Sinus Pain, No Hoarseness, No sore throat, + Rhinorrhea, No Swallowing Difficulty Eyes: No Eye Pain, No Swelling, No Redness, No Foreign Body, No Discharge, No Vision Changes Cardiovascular : No Chest Pain, No SOB, No Dyspnea on Exertion, No Orthopnea, No Edema, No Palpitations Respiratory : + Cough, No Sputum, No Wheezing, No Smoke Exposure, No Dyspnea Gastrointestinal : + Nausea, No Vomiting, No Diarrhea, No Constipation, + abdominal Pain, No Hematochezia, No Melena Genitourinary : no irregular bleeding, No Dysuria, No Urinary Frequency, No Hematuria, No Urinary Incontinence, No Urgency, No Flank Pain, No Urinary Flow Changes, No Hesitancy Musculoskeletal : No joint pain, + Myalgias, No Joint Swelling Skin : No Skin Lesions, No rash Neuro : No Weakness, No Numbness, No Paresthesias, No Loss of Consciousness, No Dizziness, No Headache Psych : No Anxiety/Panic, No Depression, No SI/HI/AH/VH, No Social Issues, Heme/Lymph: No Bruising, No Bleeding,No Lymphadenopathy Endocrine : No Polyuria, No Polydipsia, No Temperature Intolerance Yes all other systems are reviewed and are negative [facility] Past Medical History Attestation statement: The following information was validated with the patient. Source: old records reviewed and nursing notes reviewed Medical History Epilepsy Social History Social History Alcohol intake: never Patient Tobacco Use Status: Never used Tobacco Advance Directives: No Advance Directives Information Provided: No Physical Exam Vital Signs: Vital Signs: Last Vital Signs Temp 99.4 F 11/21/22 11:59 Pulse 109 H 11/21/22 11:59 Resp 18 11/21/22 11:59 BP 112/62 11/21/22 11:59 Pulse Ox 97 11/21/22 11:59 O2 Del Method 11/21/22 11:59 BMI result Body Mass Index 23.2 vital signs have been reviewed as normal and appeared to be correct. Blood pressure normal. Heart rate 120. Respiration rate normal. Temperature normal. Oxygen saturation normal. Appearance: Alert. Oriented X3. No acute distress. Head: Normal external exam. Normocephalic. Eyes: PERRLA. EOMI. Conjunctiva and sclera normal. Eyelids normal. ENT: EAC WNL. TM WNL. Pharynx normal. Uvula midline. Moist mucous membranes. No trismus noted. No drooling noted. No muffled voice noted. Neck: Normal inspection. Neck supple. FROM. No adenopathy. No meningeal signs. CVS: Normal heart rate and rhythm. Heart sound normal. No murmurs noted. Pulses normal throughout. Respiratory: No respiratory distress. Painless inspiration. Breath sounds normal. No wheezes/rales/rhonchi noted. Chest nontender. No accessory muscle usage noted or decreased air movement noted. Abdomen: Soft and diffusely tender with guarding. Nondistended. No rigidity. Bowel sounds normal in all 4 quadrants. No distention noted. No organomegaly noted. No visible injury noted. No rebound tenderness. Negative Rovsing sign. Negative obturator's sign. Negative psoas sign. Negative Delgado sign. Back: No CVA tenderness. Full range of motion noted. Skin: Skin warm and dry. Normal skin color. Normal skin turgor. No rash es/lesions/lacerations noted. Extremities: Extremities exhibit normal range of motion. Extremities nontender. Neuro: Oriented X 3. No motor deficit. No sensory deficit. Reflexes normal. Normal steady gait. CN's II-XII intact bilaterally? Course Course Course Narrative: 10:15am - 32-year-old a sign female at [facility] with history of anxiety depression presenting to the ED with multiple complaints which include chills, fatigue, malaise, fevers, nasal congestion / rhinorrhea, cough with sputum production, nausea/ vomiting, diffuse abdominal pain, back pain, hip pain all started yesterday worse today. Reports increased anxiety due to this. Known sick contacts at work. Otherwise she denies any dizziness, neck pain / stiffness, chest pain or shortness of breath, dyspnea on exertion, orthopnea, palpitations, paresthesias, flank pain, dysuria, hematuria, abnormal vaginal discharge, lower extremity edema or calf tenderness, recent travel or any other symptoms complaints or concerns at this time. Patient had a negative COVID/RSV/ flu in the waiting room. Plan: Will provide 975 mg of Tylenol, 4 mg of Zofran, EKG, chest x-ray, labs, abdominal ultrasound/appendix ultrasound and re-evaluate. Reevaluation(s) Reevaluation #1: labs UA abdominal ultrasound and CT scan abdomen pelvis with IV contrast all within normal limits. Therefore at this time patient most likely viral syndrome will DC home with symptomatic treatment instructions return if any new or worsening symptoms. Patient understands agrees with this plan. Time: 15:19 Medications Administered Discontinued Medications Generic Name Dose Route Start Last Admin Trade Name Freq PRN Reason Stop Dose Admin Acetaminophen 975 mg 11/21/22 10:18 11/21/22 10:31 Acetaminophen 325 Mg Tablet PO 11/21/22 10:19 975 mg ONCE ONE Administration Iohexol 100 ml 11/21/22 13:16 11/21/22 13:17 Iohexol 350 Mg/Ml 100 Ml Infus..Btl IV 11/21/22 13:17 85 ml ONCE ONE Administration Ketorolac Tromethamine 30 mg 11/21/22 14:12 11/21/22 14:20 Ketorolac Tromethamine 30 Mg/Ml Vial IVPUSH 11/21/22 14:13 30 mg ONCE ONE Administration Ondansetron HCl 4 mg 11/21/22 10:18 11/21/22 10:29 Ondansetron Odt 4 Mg Tab.Rapdis TRANSLINGU 11/21/22 10:19 4 mg ONCE ONE Administration Medical Decision Making Lab Data MDM Lab Attestation statement: I reviewed the patient's lab results. Result Diagrams: 11/21/22 11:21 11/21/22 11:21 Labs: Lab Results 11/21/22 11/21/22 11/21/22 Range/Units 09:15 11:21 11:21 WBC 9.1 (4.8-10.8) X10*3/uL RBC 4.87 (4.20-5.50) X10*6/uL Hgb 14.6 (12.0-16.0) g/dl Hct 42.4 (37.0-47.0) % MCV 87.1 (80.0-98.0) fL MCH 30.0 (27.0-33.0) pg MCHC 34.4 (31.0-35.0) g/dl RDW 11.9 (11.0-16.0) % Plt Count 251 (160-400) X10*3/uL MPV 10.5 (9.4-12.3) fL Immature Gran % (Auto) 0.6 H (0.0-0.4) % Neut % (Auto) 89.3 H (45-73) % Lymph % (Auto) 2.8 L (20-40) % Cotton % (Auto) 6.8 (2-11) % Eos % (Auto) 0.2 (0-4) % Baso % (Auto) 0.3 (0-2) % Lymph # (Auto) 0.3 L (1.2-4.9) X10*3/uL Cotton # (Auto) 0.6 (0.1-1.2) X10*3/uL Eos # (Auto) 0.0 (0.0-0.4) X10*3/uL Baso # (Auto) 0.0 (0.0-0.2) X10*3/uL Abs Immat Gran (auto) 0.05 H (0.00-0.03) X10*3/uL Absolute Neuts (auto) 8.1 (2.0-8.3) x10*3/uL Absolute Nucleated RBC 0.000 (0.0-0.012) X10*3/uL Nucleated RBC % (auto) 0.0 (0.0-0.2) /100WBC PT 11.7 (10.0-13.1) SEC INR 1.0 (0.9-1.1) Sodium (135-145) mmol/L Potassium (3.3-5.1) mmol/L Chloride (96-108) mmol/L Carbon Dioxide (22-29) mmol/L Anion Gap (12-20) BUN (9-16) mg/dL Creatinine (0.5-1.4) mg/dL Estim Creat Clear Calc Estimated GFR Random Glucose (60-115) mg/dL Calcium (8.4-10.2) mg/dL Magnesium (1.6-2.6) mg/dL Total Bilirubin (0.0-1.0) mg/dL AST (5-31) U/L ALT (0-31) U/L Alkaline Phosphatase (39-117) U/L Total Protein (6.5-8.0) g/dL Albumin (3.5-5.0) g/dL Beta HCG, Quant mIU/mL Urine Color Urine Appearance Urine pH (5.0-9.0) Ur Specific Hep[place] (1.005-1.025) Urine Protein (Neg-Trace) mg/dL Urine Glucose (UA) (Negative) mg/dL Urine Ketones (Negative) mg/dL Urine Blood (Negative) Urine Nitrite (Negative) Ur Leukocyte Esterase (Negative) Influenza Type A (PCR) NEGATIVE (Negative) Influenza Type B (PCR) NEGATIVE (Negative) RSV RNA Qual (PCR) NEGATIVE (Negative) SARS-CoV-2 RNA (RT-PCR) NEGATIVE (Negative) 12/11/21/22 11/21/22 Range/Units 11:21 11:21 15:06 WBC (4.8-10.8) X10*3/uL RBC (4.20-5.50) X10*6/uL Hgb (12.0-16.0) g/dl Hct (37.0-47.0) % MCV (80.0-98.0) fL MCH (27.0-33.0) pg MCHC (31.0-35.0) g/dl RDW (11.0-16.0) % Plt Count (160-400) X10*3/uL MPV (9.4-12.3) fL Immature Gran % (Auto) (0.0-0.4) % Neut % (Auto) (45-73) % Lymph % (Auto) (20-40) % Cotton % (Auto) (2-11) % Eos % (Auto) (0-4) % Baso % (Auto) (0-2) % Lymph # (Auto) (1.2-4.9) X10*3/uL Cotton # (Auto) (0.1-1.2) X10*3/uL Eos # (Auto) (0.0-0.4) X10*3/uL Baso # (Auto) (0.0-0.2) X10*3/uL Abs Immat Gran (auto) (0.00-0.03) X10*3/uL Absolute Neuts (auto) (2.0-8.3) x10*3/uL Absolute Nucleated RBC (0.0-0.012) X10*3/uL Nucleated RBC % (auto) (0.0-0.2) /100WBC PT (10.0-13.1) SEC INR (0.9-1.1) Sodium 137 (135-145) mmol/L Potassium 3.9 (3.3-5.1) mmol/L Chloride 106 (96-108) mmol/L Carbon Dioxide 24 (22-29) mmol/L Anion Gap 11 L (12-20) BUN 9 (9-16) mg/dL Creatinine 0.67 (0.5-1.4) mg/dL Estim Creat Clear Calc 94.4 Estimated GFR > 60 Random Glucose 112 (60-115) mg/dL Calcium 9.1 (8.4-10.2) mg/dL Magnesium 2.0 (1.6-2.6) mg/dL Total Bilirubin 0.4 (0.0-1.0) mg/dL AST 10 (5-31) U/L ALT 8 (0-31) U/L Alkaline Phosphatase 89 (39-117) U/L Total Protein 6.2 L (6.5-8.0) g/dL Albumin 4.1 (3.5-5.0) g/dL Beta HCG, Quant < 2 mIU/mL Urine Color Yellow Urine Appearance Clear Urine pH 6.5 (5.0-9.0) Ur Specific [place] >= 1.030 H (1.005-1.025) Urine Protein Trace (Neg-Trace) mg/dL Urine Glucose (UA) Negative (Negative) mg/dL Urine Ketones Negative (Negative) mg/dL Urine Blood Negative (Negative) Urine Nitrite Negative (Negative) Ur Leukocyte Esterase Negative (Negative) Influenza Type A (PCR) (Negative) Influenza Type B (PCR) (Negative) RSV RNA Qual (PCR) (Negative) SARS-CoV-2 RNA (RT-PCR) (Negative) Independent Interpretation I performed an independent interpretation of an: EKG and Plain X-Ray Radiology Impression Discussion of test interpretation with radiology: I have reviewed the radiologist's reading. Radiologist Impression: CT scan abdomen pelvis without IV contrastFINDINGS: LUNG BASES: Scattered bibasilar is disc atelectasis. No airspace consolidation or effusion.? LIVER, GALLBLADDER, AND BILIARY TREE: Normal in size and smooth in contour. There are 2 small hypodense foci segment 2 left hepatic lobe likely cysts similar to prior exam 09/21/2021. The gallbladder is unremarkable with no evidence of radiopaque gallstones, gallbladder wall thickening, or obvious pericholecystic inflammatory changes.? PANCREAS: Unremarkable.? SPLEEN: Unremarkable.? ADRENAL GLANDS: Unremarkable.? KIDNEYS AND URETERS: The kidneys enhance symmetrically and are of normal size and contour. There is no hydronephrosis, hydroureter, or perinephric stranding. Suspect several punctate nonobstructing intrarenal calculi under 3 mm. No ureteral calculi. Small cyst again noted lateral interpolar left kidney approximately 1 cm. No additional imaging follow-up recommended. BLADDER: Unremarkable.? GASTROINTESTINAL TRACT: No bowel obstruction or focal inflammatory changes in bowel or mesentery. No pneumatosis or free air. The appendix appears collapsed and normal. No periappendiceal or pericecal inflammatory stranding. ? ABDOMINAL WALL: No significant hernia is appreciated.? LYMPH NODES: No retroperitoneal or pelvic adenopathy. There are some mesenteric nodes right lower quadrant medial to the cecum which are stable to decreased from prior CT exams dating back to 2019. VASCULAR: Unremarkable. PELVIC VISCERA: Unremarkable.? OSSEOUS STRUCTURES: Unremarkable.? CT/CT abdomen pelvis w IV con IMPRESSION: 1. No bowel obstruction or focal acute inflammatory changes in bowel or mesentery. Normal appendix. ? 2. No hydronephrosis or perinephric stranding. A few punctate nonobstructing intrarenal calculi. abdominal ultrasound FINDINGS: PANCREAS: Normal. ABDOMINAL AORTA: The proximal, mid, and distal segments are normal in caliber. INFERIOR VENA CAVA: Visualized portions are normal. LIVER: The liver is normal in size. The liver contour is normal. Parenchymal echogenicity is normal. No focal hepatic lesion. There is no intrahepatic biliary duct dilatation seen. GALLBLADDER: The gallbladder is physiologically distended without evidence of stones, sludge, wall thickening or pericholecystic fluid. There are at least 3 nonmobile echogenic polyps with the largest polyp measuring 0.3 x 0.2 x 0.2 cm. There is wall thickness is 0.2 cm. COMMON BILE DUCT: Normal in caliber measuring 0.3 cm in diameter. RIGHT KIDNEY: There is mild pelvic fullness without hydronephrosis. No renal calculi or focal parenchymal lesions. The kidney measures 10.1 cm in maximum dimension. LEFT KIDNEY: There is mild pelvic fullness.. No renal calculi or focal parenchymal lesions. The kidney measures 11.0 cm in maximum dimension. SPLEEN: Normal. The spleen measures 9.8 cm in maximum dimension. FREE FLUID: None. US/US abdomen complete IMPRESSION: 1.? At least 3 gallbladder polyps. No echogenic stones or wall thickening. 2.? Mild bilateral pelvic fullness without caliectasis or hydronephrosis. 3.? Rest of the abdominal ultrasound is unremarkable. ? ADDENDUMLimited ultrasound appendix was performed with nonvisualization of appendix. There is no free fluid. Right ovary appears unremarkable. External Record Review External record reviewed: Inpatient record, Prior outpatient labs and Prior outpatient radiology Discharge Plan Discharge Clinical Impression: Acute viral syndrome Patient Disposition: Home, Self-Care Instructions: Viral Syndrome (ED) Prescriptions: New ondansetron HCl 4 mg tablet 4 mg PO Q8H Qty: 14 0RF ibuprofen 800 mg tablet 800 mg PO Q8H PRN (Reason: pain) Qty: 14 0RF cyclobenzaprine 10 mg tablet 10 mg PO Q8H Qty: 14 0RF No Action [id number] [Fioricet with Codeine] 37-019-14-30 mg capsule 1 cap PO Q4H PRN (Reason: headache) Qty: 14 0RF dicyclomine 20 mg tablet 20 mg PO QID PRN (Reason: Abdominal cramping) Qty: 20 0RF ondansetron HCl [Zofran] 4 mg tablet 4 mg PO Q8H PRN (Reason: nausea and vomiting) Qty: 10 0RF alum-mag hydroxide-simeth [Maalox Advanced] 200-200-20 mg/5 mL suspension 5 ml PO 5XD PRN (Reason: dyspepsia) Qty: 30 0RF Rx Instructions: administer between meals and at bedtime famotidine [Pepcid] 20 mg tablet 20 mg PO DAILY Qty: 14 0RF escitalopram oxalate [Lexapro] 10 mg tablet 10 mg PO DAILY Qty: 30 0RF quetiapine [Seroquel] 25 mg tablet 25 mg PO TID Qty: 45 0RF Alyacen (28) 1-35 mg-mcg tablet 1 tab PO DAILY azithromycin [Zithromax TRI-ANGELA] 500 mg tablet 500 mg PO DAILY 3 Days Qty: 3 0RF codeine-guaifenesin 10-100 mg/5 mL liquid 10 ml PO Q6H PRN (Reason: cough) Qty: 237 0RF topiramate 50 mg tablet 50 mg PO .QHS 30 Days Qty: 30 0RF prednisone 20 mg tablet 20 mg PO DAILY 5 Days Qty: 5 0RF albuterol sulfate [ProAir HFA] 90 mcg/actuation HFA aerosol inhaler 2 puff inhalation Q4H PRN (Reason: wheezing) Referrals: Physician,None [Primary Care Provider] - 2 days (your pcp) Stand Alone Forms: Work/School Release Interventions: ED Discharge Assessment Last Done: 11/21/22 15:11 Discharge Date/Time: 11/21/22 15:14
[2022-11-21] MEDS: Ondansetron ODT 4 MG TAB.RAPDIS TRANSLINGU (10:29)
[2022-11-21] MEDS: Acetaminophen 325 MG TABLET 975 MG PO (10:31)
[2022-11-21 11:26] LABS: MANUAL DIFF FLAG NO
[2022-11-21 11:30] LABS: Basophils Percent Auto 0.3 % (0-2); Eosinophils Percent Auto 0.2 % (0-4); Hematocrit 42.4 % (37.0-47.0); Hemoglobin 14.6 g/dl (12.0-16.0); Imm Gran Abs Auto 0.05 X10*3/uL (0.00-0.03); Imm Gran Pct Auto 0.6 % (0.0-0.4); Lymphocytes Absolute Auto 0.3 X10*3/uL (1.2-4.9); Lymphocytes Percent Auto 2.8 % (20-40); Mean Corpuscular HGB Conc 34.4 g/dl (31.0-35.0); Mean Corpuscular Volume 87.1 fL (80.0-98.0); Mean Platelet Volume 10.5 fL (9.4-12.3); Monocytes Absolute Auto 0.6 X10*3/uL (0.1-1.2); Monocytes Percent Auto 6.8 % (2-11); Neutrophils Absolute Auto 8.1 x10*3/uL (2.0-8.3); Neutrophils Percent Auto 89.3 % (45-73); Platelet Count 251 X10*3/uL (160-400); Red Blood Count 4.87 X10*6/uL (4.20-5.50); Red Cell Distribution Width 11.9 % (11.0-16.0); White Blood Count 9.1 X10*3/uL (4.8-10.8)
[2022-11-21 11:37] LABS: Prothrombin Time 11.7 SEC (10.0-13.1)
[2022-11-21 11:46] LABS: Alanine Aminotransferase 8 U/L (0-31); Albumin Level 4.1 g/dL (3.5-5.0); Alkaline Phosphatase 89 U/L (39-117); Anion Gap 11 (12-20); Aspartate Amino Transferase 10 U/L (5-31); Bilirubin Total 0.4 mg/dL (0.0-1.0); Blood Urea Nitrogen 9 mg/dL (9-16); Calcium 9.1 mg/dL (8.4-10.2); Carbon Dioxide 24 mmol/L (22-29); Chloride 106 mmol/L (96-108); Creatinine Clr Calc Pharmacy 94.4; Estimated Glomerular Filt Rate > 60; Glucose Random 112 mg/dL (60-115); Potassium 3.9 mmol/L (3.3-5.1); Sodium 137 mmol/L (135-145); Total Protein 6.2 g/dL (6.5-8.0)
[2022-11-21 11:57] LABS: HCG Quantitative < 2 mIU/mL
[2022-11-21 11:59] VITALS: BP 112/62; PULSE 109; RESP 18; TEMP 37.4; O2SAT 97
[2022-11-21] MEDS: iohexoL 350 MG/ML 100 ML INFUS..BTL IV (13:17)
[2022-11-21] MEDS: Ketorolac Tromethamine 30 MG/ML VIAL IVPUSH (14:20)
[2022-11-21 15:15] LABS: Appearance Urine Clear; Color Urine Yellow; Glucose Urine UA Negative (Negative); Leukocyte Esterase Urine Negative (Negative); Nitrite Urine Negative (Negative); PH 6.5 (5.0-9.0); Specific Gravity - Urine >= 1.030 (1.005-1.025); Urine Blood Negative (Negative); Urine Ketones Negative (Negative); Urine Protein Trace mg/dL (Neg-Trace)
== END 2022-11-21 15:14 | disposition home or self-care (01) ==
PROVIDERS: Physician Assistant Medical; Emergency Provider Student in an Organized Health Care Education/Training Program
DX: B34.9 Viral infection, unspecified (principal); Z20.822 Contact with and (suspected) exposure to COVID-19; R10.9 Unspecified abdominal pain; R05.9 Cough, unspecified
CPT/HCPCS: 0241U; 36415; 71045; 74177; 76700; 80053; 81003; 83735; 84702; 85025; 85610; 93005; 96374; 99284; J1885; Q9967

== ENCOUNTER 2023-05-25 22:43 | Emergency (ER) | payer OTHER, SELFPAY ==
[2023-05-25 23:00] VITALS: BP 110/70; BP 112/77; PULSE 83; PULSE 88; RESP 16; TEMP 37; O2SAT 95; O2SAT 98; BMI 24.6
--- NOTE | 2023-05-25 23:10 | MHC.EDTECH ---
PATIENT CAME IN VIA EMS ,VITALS SIGN TAKEN ,PT WAS HOOKED UP TO AIR DISPATCHER ,BLOOD SUGAR TAKEN ,BATIENT WAS ASSISTED TO CHANGE INTO HOSPITAL ATTIRE ,SEIZURE PADS IN PLACE ,PT WATCHING TELEVISION .
--- NOTE | 2023-05-25 23:25 | ED.SEIZURE ---
HPI - Seizure General Chief Complaint: Seizure Stated Complaint: SEIZURE Time Seen by Provider: 05/25/23 23:25 Source: patient Mode of arrival: ambulatory Limitations: no limitations History of Present Illness HPI Narrative: Patient's history of seizures for last several years get worse when she gets anxiety had epilepsy and anxiety induced seizures supposed to be on Topamax which she is not taking it because of the side effects today she was under more stress and had 2 small seizures at home and 1 seizure and EMS was arrived also when patient a ER patient had seizure with twitching of the face movements without increased tone and no postictal phase no tongue bite no head injury or fall Seizure History: Yes Related Data Home Medications Medication Instructions Recorded Confirmed norethindrone 1 mg-ethinyl 1 tab PO DAILY 09/22/21 08/09/22 estradiol 35 mcg tablet (Alyacen) albuterol sulfate 90 mcg/actuation 2 puff inhalation Q4H PRN wheezing 08/09/22 08/09/22 aerosol inhaler (ProAir HFA) Previous Rx's Medication Instructions Recorded butalbital 50 mg-acetaminophen 300 1 cap PO Q4H PRN headache #14 caps 03/22/21 mg-caffeine 40 mg-codeine 30 mg cap (Fioricet with Codeine) aluminum-mag hydroxide-simethicone 5 ml PO 5XD PRN dyspepsia #30 mL 09/21/21 200 mg-200 mg-20 mg/5 mL oral susp (Maalox Advanced) dicyclomine 20 mg tablet 20 mg PO QID PRN Abdominal 09/21/21 cramping #20 tabs famotidine 20 mg tablet (Pepcid) 20 mg PO DAILY #14 tabs 09/21/21 ondansetron HCl 4 mg tablet 4 mg PO Q8H PRN nausea and 09/21/21 (Zofran) vomiting #10 tabs azithromycin 500 mg tablet 500 mg PO DAILY 3 days #3 tabs 11/10/21 (Zithromax TRI-ANGELA) codeine 10 mg-guaifenesin 100 mg/5 10 ml PO Q6H PRN cough #237 mL 11/10/21 mL oral liquid prednisone 20 mg tablet 20 mg PO DAILY 5 days #5 tabs 07/23/22 topiramate 50 mg tablet 50 mg PO .QHS 30 days #30 tabs 08/03/22 escitalopram oxalate 10 mg tablet 10 mg PO DAILY #30 tabs 09/18/22 (Lexapro) quetiapine 25 mg tablet (Seroquel) 25 mg PO TID #45 tabs 09/18/22 cyclobenzaprine 10 mg tablet 10 mg PO Q8H #14 tabs 11/21/22 ibuprofen 800 mg tablet 800 mg PO Q8H PRN pain #14 tabs 11/21/22 ondansetron HCl 4 mg tablet 4 mg PO Q8H #14 tabs 11/21/22 lorazepam 1 mg tablet (Ativan) 1 mg PO BID PRN anxiety #6 tabs 05/26/23 Allergies Allergy/AdvReac Type Severity Reaction Status Date / Time amoxicillin [AMOXICILLIN] Allergy Unknown HIVES Verified 08/09/22 11:27 Review of Systems Review of Systems: Yes all other systems are reviewed and are negative [facility] Past Medical History Medical History Epilepsy Social History Social History Alcohol intake: never Patient Tobacco Use Status: Never used Tobacco Smoked in Last 30 Days: No Use of substances other than those prescribed or required for medical reasons: No Advance Directives: No Advance Directives Information Provided: Yes Patient : No Physical Exam Vital Signs: Vital Signs: Last Vital Signs Temp 98.6 F 05/26/23 00:40 Pulse 75 05/26/23 00:40 Resp 16 05/26/23 00:40 BP 120/78 05/26/23 00:40 Pulse Ox 100 05/26/23 00:40 O2 Del Method Room Air 05/26/23 00:40 BMI result Body Mass Index 24.6 Appearance: Alert. Oriented X3. No acute distress. Eyes: PERRLA, No Nystagmus ENT: Pharynx normal. Oral Mucosa moist no tongue bite Neck: Normal inspection. Neck supple. CVS: Normal heart rate and rhythm. Pulses normal. Respiratory: No respiratory distress. Equal air entry bilateral, no wheezing/rales/rhonchi Abdomen: Soft and nontender. Bowel sounds are present, no mass palpable, no CVA tenderness Skin: Skin warm and dry. Normal skin color. Normal skin turgor. Extremities: No lower extremity edema. No calf tenderness Neuro: Oriented X 3. No motor deficit. No sensory deficit.No cerebellar signs , cranial nerves II-XII intact Medications Administered Discontinued Medications Generic Name Dose Route Start Last Admin Trade Name Lori PRN Reason Stop Dose Admin Lorazepam 1 mg 05/25/23 23:33 05/25/23 23:41 Lorazepam 2 Mg/Ml Vial IVPUSH 05/25/23 23:34 1 mg ONCE ONE Administration Medical Decision Making Medical Decision Making [facility] Narrative: Patient with epilepsy and anxiety induced seizures has Topamax at home which she is not compliant advised her to continue Topamax along with take Ativan for increased anxiety and to continue her Seroquel and follow psychiatrist's/neurology Lab Data [facility] Lab Attestation statement: I reviewed the patient's lab results. 05/25/23 23:35 05/25/23 23:35 Labs: Lab Results 05/25/23 05/25/23 Range/Units 23:35 23:35 WBC 10.5 (4.8-10.8) X10*3/uL RBC 4.74 (4.20-5.50) X10*6/uL Hgb 14.0 (12.0-16.0) g/dl Hct 40.9 (37.0-47.0) % MCV 86.3 (80.0-98.0) fL MCH 29.5 (27.0-33.0) pg MCHC 34.2 (31.0-35.0) g/dl RDW 12.3 (11.0-16.0) % Plt Count 258 (160-400) X10*3/uL MPV 11.4 (9.4-12.3) fL Immature Gran % (Auto) 0.3 (0.0-0.4) % Neut % (Auto) 69.0 (45-73) % Lymph % (Auto) 21.5 (20-40) % Shelby % (Auto) 7.0 (2-11) % Eos % (Auto) 1.6 (0-4) % Baso % (Auto) 0.6 (0-2) % Lymph # (Auto) 2.3 (1.2-4.9) X10*3/uL Shelby # (Auto) 0.7 (0.1-1.2) X10*3/uL Eos # (Auto) 0.2 (0.0-0.4) X10*3/uL Baso # (Auto) 0.1 (0.0-0.2) X10*3/uL Abs Immat Gran (auto) 0.03 (0.00-0.03) X10*3/uL Absolute Neuts (auto) 7.2 (2.0-8.3) x10*3/uL Absolute Nucleated RBC 0.000 (0.0-0.012) X10*3/uL Nucleated RBC % (auto) 0.0 (0.0-0.2) /100WBC Sodium 139 (135-145) mmol/L Potassium 3.6 (3.3-5.1) mmol/L Chloride 108 (96-108) mmol/L Carbon Dioxide 23 (22-29) mmol/L Anion Gap 12 (12-20) BUN 8 L (9-16) mg/dL Creatinine 0.66 (0.5-1.4) mg/dL Estim Creat Clear Calc 95.0 Estimated GFR > 60 Random Glucose 100 (60-115) mg/dL Calcium 9.0 (8.4-10.2) mg/dL Magnesium 2.2 (1.6-2.6) mg/dL Total Bilirubin 0.5 (0.0-1.0) mg/dL AST 10 (5-31) U/L ALT 8 (0-31) U/L Alkaline Phosphatase 78 (39-117) U/L Total Protein 6.0 L (6.5-8.0) g/dL Albumin 3.7 (3.5-5.0) g/dL Discharge Plan Discharge Clinical Impression: Epilepsy, Psychogenic nonepileptic seizure Patient Disposition: Home, Self-Care Instructions: Epilepsy (ED), Conversion Disorder (ED) Additional Instructions: Take her Topamax as prescribed Ativan for severe anxiety Follow-up with neurologist Prescriptions: New lorazepam [Ativan] 1 mg tablet 1 mg PO BID PRN (Reason: anxiety) Qty: 6 0RF No Action [id number] [Fioricet with Codeine] [id number] mg capsule 1 cap PO Q4H PRN (Reason: headache) Qty: 14 0RF dicyclomine 20 mg tablet 20 mg PO QID PRN (Reason: Abdominal cramping) Qty: 20 0RF ondansetron HCl [Zofran] 4 mg tablet 4 mg PO Q8H PRN (Reason: nausea and vomiting) Qty: 10 0RF alum-mag hydroxide-simeth [Maalox Advanced] 200-200-20 mg/5 mL suspension 5 ml PO 5XD PRN (Reason: dyspepsia) Qty: 30 0RF Rx Instructions: administer between meals and at bedtime famotidine [Pepcid] 20 mg tablet 20 mg PO DAILY Qty: 14 0RF escitalopram oxalate [Lexapro] 10 mg tablet 10 mg PO DAILY Qty: 30 0RF quetiapine [Seroquel] 25 mg tablet 25 mg PO TID Qty: 45 0RF ondansetron HCl 4 mg tablet 4 mg PO Q8H Qty: 14 0RF ibuprofen 800 mg tablet 800 mg PO Q8H PRN (Reason: pain) Qty: 14 0RF cyclobenzaprine 10 mg tablet 10 mg PO Q8H Qty: 14 0RF Alyacen 1/35 (28) 1-35 mg-mcg tablet 1 tab PO DAILY azithromycin [Zithromax TRI-ANGELA] 500 mg tablet 500 mg PO DAILY 3 Days Qty: 3 0RF codeine-guaifenesin 10-100 mg/5 mL liquid 10 ml PO Q6H PRN (Reason: cough) Qty: 237 0RF topiramate 50 mg tablet 50 mg PO .QHS 30 Days Qty: 30 0RF prednisone 20 mg tablet 20 mg PO DAILY 5 Days Qty: 5 0RF albuterol sulfate [ProAir HFA] 90 mcg/actuation HFA aerosol inhaler 2 puff inhalation Q4H PRN (Reason: wheezing) Interventions: ED Discharge Assessment Last Done: 05/26/23 00:43 Discharge Date/Time: 05/26/23 00:44
[2023-05-25] MEDS: LORazepam 2 MG/ML VIAL 1 MG IVPUSH (23:41)
[2023-05-25 23:43] LABS: Basophils Absolute Auto 0.1 X10*3/uL (0.0-0.2); Basophils Percent Auto 0.6 % (0-2); Eosinophils Absolute Auto 0.2 X10*3/uL (0.0-0.4); Eosinophils Percent Auto 1.6 % (0-4); Hematocrit 40.9 % (37.0-47.0); Imm Gran Abs Auto 0.03 X10*3/uL (0.00-0.03); Imm Gran Pct Auto 0.3 % (0.0-0.4); Lymphocytes Absolute Auto 2.3 X10*3/uL (1.2-4.9); Lymphocytes Percent Auto 21.5 % (20-40); MANUAL DIFF FLAG NO; Mean Corpuscular HGB Conc 34.2 g/dl (31.0-35.0); Mean Corpuscular Hemoglobin 29.5 pg (27.0-33.0); Mean Corpuscular Volume 86.3 fL (80.0-98.0); Mean Platelet Volume 11.4 fL (9.4-12.3); Monocytes Absolute Auto 0.7 X10*3/uL (0.1-1.2); Neutrophils Absolute Auto 7.2 x10*3/uL (2.0-8.3); Platelet Count 258 X10*3/uL (160-400); Red Blood Count 4.74 X10*6/uL (4.20-5.50); Red Cell Distribution Width 12.3 % (11.0-16.0); White Blood Count 10.5 X10*3/uL (4.8-10.8)
[2023-05-26 00:01] LABS: Alanine Aminotransferase 8 U/L (0-31); Albumin Level 3.7 g/dL (3.5-5.0); Alkaline Phosphatase 78 U/L (39-117); Anion Gap 12 (12-20); Aspartate Amino Transferase 10 U/L (5-31); Bilirubin Total 0.5 mg/dL (0.0-1.0); Blood Urea Nitrogen 8 mg/dL (9-16); Carbon Dioxide 23 mmol/L (22-29); Chloride 108 mmol/L (96-108); Estimated Glomerular Filt Rate > 60; Glucose Random 100 mg/dL (60-115); Magnesium 2.2 mg/dL (1.6-2.6); Potassium 3.6 mmol/L (3.3-5.1); Sodium 139 mmol/L (135-145)
[2023-05-26 00:40] VITALS: BP 120/78; PULSE 75; RESP 16; TEMP 37; O2SAT 100
--- NOTE | 2023-05-26 00:41 | PC.NURSE ---
Pt is for D/c home. IV removed, bleeding controlled, skin intact. Pt has been given seizure medication to prevent further seizures and has bee advised to continue to take her seizure medication. Pt is in NAD, AOX4, boyfriend at bedside to take pt home safely. Pt is able to ambulate without any difficulties.
[2023-05-26 01:26] LABS: Glucose, Whole Blood 106 mg/dL (60-115)
== END 2023-05-26 00:44 | disposition home or self-care (01) ==
PROVIDERS: Emergency Provider Internal Medicine
DX: F44.5 Conversion disorder with seizures or convulsions (principal); F41.9 Anxiety disorder, unspecified; Z91.148 Patient's other noncompliance with medication regimen for other reason
CPT/HCPCS: 36415; 80053; 82947; 83735; 85025; 96374; 99284; J2060

== ENCOUNTER 2023-05-27 07:23 | Emergency (ER) | payer OTHER, SELFPAY ==
--- NOTE | ~2023-05-27 | CT_ITS ---
EXAMINATION: CT CERVICAL SPINE WITHOUT CONTRAST CLINICAL INFORMATION: Seizures with fall COMPARISON: November 2020. TECHNIQUE: Axial sections performed and bone and soft tissue windows without IV contrast enhancement. Sagittal and coronal reconstructions performed. This CT examination was performed using dose optimization techniques as appropriate, variously including the following: *Automated exposure control *Adjustment of mA and/or kV according to patient size (this includes techniques or standardized protocols for targeted exams where dose is matched to indication/reason for exam; i.e. extremities or head) *Use of iterative reconstruction technique DLP: 259 mGy-cm FINDINGS: The odontoid and the condyles are unremarkable. The C1 and C2 arches are intact. 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 No evidence for acute compression fracture. Disc spaces appear to be maintained. There is reversal of lordosis likely related to spasm or patient positioning. Pedicles and laminar structures appear intact. No appreciable significantly enlarged jugulodigastric or cervical chain nodes. The epiglottis and the vocal cords are unremarkable. CT/CT cervical spine wo IV con IMPRESSION: 1. No evidence for bony fracture. Reversal of lordosis likely related to spasm or patient positioning. 2. 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
--- NOTE | ~2023-05-27 | CT_ITS ---
EXAMINATION: CT HEAD WITHOUT CONTRAST CLINICAL INFORMATION: Seizure/fall with headache COMPARISON: August 2022. TECHNIQUE: Contiguous axial imaging was performed from the skull base to vertex without intravenous administration of contrast. This CT examination was performed using dose optimization techniques as appropriate, variously including the following: *Automated exposure control *Adjustment of mA and/or kV according to patient size (this includes techniques or standardized protocols for targeted exams where dose is matched to indication/reason for exam; i.e. extremities or head) *Use of iterative reconstruction technique DLP: 560 mGy-cm FINDINGS: No evidence for acute hemorrhage or mass effect. Cisterns appear unremarkable. Rose/white matter differentiation is maintained. The ventricles are normal in size. No intraventricular blood seen. There are no extra-axial collections. The mastoids are well aerated. Skull base unremarkable. The calvarium is intact. CT/CT head/brain wo IV con IMPRESSION: No evidence for acute hemorrhage or mass effect. No significant changes since previous evaluation.
[2023-05-27 07:47] VITALS: BP 126/78; PULSE 98; TEMP 36.6; O2SAT 97; BMI 24.6
[2023-05-27 08:29] VITALS: BP 114/82; PULSE 94; RESP 18; O2SAT 96
--- NOTE | 2023-05-27 08:34 | PC.NURSE ---
Alert and oriented. Reports 10/10 right sided head pain that started 3 days ago and has gotten worse. States hx of seizures and is on topamax but stopped taking it weeks ago because she didnt like the way it made her feel. States saturday had multiple witnessed seizures at home but is unsure if she hit her head. Reports then re started her seizure medication but just does not feel well. States she is nausous and threw up once yesterday and once this morning. Reports multiple life stressors and not getting much sleep lately. 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
--- NOTE | 2023-05-27 08:43 | ED.GENADULT ---
HPI - General Adult General Chief complaint: General Medical Stated complaint: not feeling well Time Seen by Provider: 05/27/23 08:21 Source: patient Mode of arrival: ambulatory Limitations: no limitations History of Present Illness HPI narrative: Patient is a 33-year-old female with generalized anxiety disorder, major depressive disorder and epilepsy presenting to the emergency department with a headache, nausea, vomiting, and diarrhea for the past 2-3 days. Pain to right side of head, photophobia. States she has used Tylenol, ibuprofen, and prn Ativan without relief. Denies worst at onset, denies worst headache of life. Denies neck pain or stiffness. Also reports subjective fever but has not checked her temperature. Denies any abdominal pain, constipation. Denies dysuria, hematuria, or any other urinary symptoms. Denies back or flank pain. Reports she has been taking Topamax and Keppra for her seizures as prescribed, however, reported to nursing that she was not taking her Topamax for several weeks due to side effects and recently restarted it. Reports seizures on Saturday, unsure if she fell or hit her head. Was evaluated here and prescribed Ativan for anxiety. She is not anticoagulated. Denies any chest pain, shortness of breath, cough. Denies any recent sick contacts. MD complaint: Headache, nausea, vomiting, diarrhea Onset (ago): day(s) Location: head Radiation: non-radiation Severity: severe Severity scale (1-10): 10 Quality: aching Pain Consistency: constant Relieving factors: none Exacerbating factors: movement Associated symptoms: nausea/vomiting and seizure Treatments prior to arrival: NSAID Related Data Home Medications Medication Instructions Recorded Confirmed norethindrone 1 mg-ethinyl 1 tab PO DAILY 09/22/21 08/09/22 estradiol 35 mcg tablet (Alyacen) albuterol sulfate 90 mcg/actuation 2 puff inhalation Q4H PRN wheezing 08/09/22 08/09/22 aerosol inhaler (ProAir HFA) Previous Rx's Medication Instructions Recorded butalbital 50 mg-acetaminophen 300 1 cap PO Q4H PRN headache #14 caps 03/22/21 mg-caffeine 40 mg-codeine 30 mg cap (Fioricet with Codeine) aluminum-mag hydroxide-simethicone 5 ml PO 5XD PRN dyspepsia #30 mL 09/21/21 200 mg-200 mg-20 mg/5 mL oral susp (Maalox Advanced) dicyclomine 20 mg tablet 20 mg PO QID PRN Abdominal 09/21/21 cramping #20 tabs famotidine 20 mg tablet (Pepcid) 20 mg PO DAILY #14 tabs 09/21/21 ondansetron HCl 4 mg tablet 4 mg PO Q8H PRN nausea and 09/21/21 (Zofran) vomiting #10 tabs azithromycin 500 mg tablet 500 mg PO DAILY 3 days #3 tabs 11/10/21 (Zithromax TRI-ANGELA) codeine 10 mg-guaifenesin 100 mg/5 10 ml PO Q6H PRN cough #237 mL 11/10/21 mL oral liquid prednisone 20 mg tablet 20 mg PO DAILY 5 days #5 tabs 07/23/22 topiramate 50 mg tablet 50 mg PO .QHS 30 days #30 tabs 08/03/22 escitalopram oxalate 10 mg tablet 10 mg PO DAILY #30 tabs 09/18/22 (Lexapro) quetiapine 25 mg tablet (Seroquel) 25 mg PO TID #45 tabs 09/18/22 cyclobenzaprine 10 mg tablet 10 mg PO Q8H #14 tabs 11/21/22 ibuprofen 800 mg tablet 800 mg PO Q8H PRN pain #14 tabs 11/21/22 ondansetron HCl 4 mg tablet 4 mg PO Q8H #14 tabs 11/21/22 lorazepam 1 mg tablet (Ativan) 1 mg PO BID PRN anxiety #6 tabs 05/26/23 Allergies Allergy/AdvReac Type Severity Reaction Status Date / Time amoxicillin [AMOXICILLIN] Allergy Unknown HIVES Verified 08/09/22 11:27 Review of Systems Review of Systems: As per HPI. Yes all other systems are reviewed and are negative Constitutional: Constitutional: Reports as per HPI [facility] Past Medical History Medical History Epilepsy Social History Social History Alcohol intake: never Patient Tobacco Use Status: Never used Tobacco Smoked in Last 30 Days: No Use of substances other than those prescribed or required for medical reasons: No Advance Directives: No Advance Directives Information Provided: No Physical Exam ED Vital Signs: Vital Signs - 24 hr 05/27/23 07:47 05/27/23 08:29 05/27/23 08:52 Temperature 98 F 98.1 F Pulse Rate 98 94 Respiratory Rate 18 Blood Pressure 126/78 114/82 Pulse Oximetry 97 96 Oxygen Delivery Method Room Air Room Air 05/27/23 10:30 Temperature Pulse Rate 74 Respiratory Rate 18 Blood Pressure 111/76 Pulse Oximetry 98 Oxygen Delivery Method Room Air BMI result Body Mass Index 24.6 Vital signs have been reviewed and appear to be correct. Blood pressure normal. Heart rate normal. Respiratory rate normal. Temperature normal. Oxygen saturation normal. Const General: cooperative and no acute distress Orientation/consciousness: oriented to person, oriented to place, oriented to time and patient oriented x3 Limitations: no limitations HENMT Head: Yes normal to inspection, Yes No palpable skull fracture present, Yes normocephalic, Yes atraumatic, No Carrillo's sign, No raccoon eyes, No scalp tenderness and No periorbital ecchymosis Ears: external ears normal and TM's normal bilaterally General nose exam: Normal external nose present, Normal nares present and Normal septum present Face and sinus: Yes face symmetric Mouth: Normal oral and palatal mucosa present, oropharynx normal and moist mucous membranes Teeth and gingiva: poor dentition Throat: Yes posterior oropharynx normal and Yes uvula midline Eyes Pupils: Equal, round and reactive pupils present Neck Neck: Yes normal visual inspection and Yes supple Resp Effort & Inspection: normal respiratory effort and able to speak in complete sentences Auscultation: clear to auscultation bilaterally Cardio Rate: regular rate Rhythm: regular rhythm Heart sounds: S1 normal heart sound present and S2 normal heart sound present GI Palpation (GI): Soft to palpation and nontender Auscultation: normoactive bowel sounds General: Yes no CVA tenderness Back/Spine/Pelvis Back: no CVA tenderness Skin General skin exam: elasticity normal and turgor normal Neuro General: oriented to person, oriented to place, oriented to time, patient oriented x3, moves all extremities, no focal motor deficits and CN's II-XI intact bilaterally Cranial nerves: Yes Equal, round and reactive pupils present Cognition (Neuro): normal cognition Extrem General: Yes full ROM, Yes no pedal edema and Yes no calf tenderness Psych Mental Status: mental status grossly normal Affect: normal affect Thought process: Normal thought process present Course Course Course Narrative: 08:40 Notified by RN that patient appeared to be having a seizure. Upon assessment patient laying in bed with eyes closed moving head back and forth, no movement of extremities. Patient immediately woke to sternal rub and was alert and oriented x 3. 11:17 Patient states that her headache is down to a 1/10, is requesting to eat. 1+ leukocytes on UA, however epithelial cells also present so likely contamination as patient denies any urinary symptoms. Labs unremarkable, no acute findings on CT. Will PO trial and discharge home if tolerated. Instructed patient to utilize the migraine medications prescribed to her and to follow-up with her neurologist and PCP this week. Advised patient of all results in all questions answered. Return precautions discussed at bedside. Patient verbalizes understanding of and agreement with plan. 11:51 patient able to tolerate food and fluids p.o., states she feels ready for discharge home. Will discharge at this time. SO at bedside to drive patient home. Medications Administered Discontinued Medications Generic Name Dose Route Start Last Admin Trade Name Lori PRN Reason Stop Dose Admin Acetaminophen/Butalbital/Caffeine 2 tab 05/27/23 08:48 05/27/23 09:15 Butalb/Acetamin/Caff 50/325/40 Tablet PO 05/27/23 08:49 2 tab ONCE ONE Administration Hydroxyzine HCl 25 mg 05/27/23 08:48 05/27/23 09:15 Hydroxyzine Hcl 25 Mg Tablet PO 05/27/23 08:49 25 mg ONCE ONE Administration Sodium Chloride 1,000 mls @ 999 mls/hr 05/27/23 08:45 05/27/23 11:18 Ns IV 05/27/23 09:45 Infused .Q1H1M ARIE Infusion Ondansetron HCl 4 mg 05/27/23 09:04 05/27/23 09:15 Ondansetron Odt 4 Mg Tab.Rapdis TRANSLINGU 05/27/23 09:05 4 mg ONCE ONE Administration Medical Decision Making Medical Decision Making [facility] Narrative: Patient is a 33-year-old female with generalized anxiety disorder, major depressive disorder and epilepsy presenting to the emergency department with a headache, nausea, vomiting, and diarrhea for the past 2-3 days. On exam patient is awake, A+Ox3, VS WNL, afebrile, normal neurological exam without focal deficits, LS CTA throughout, abdomen is soft and nontender, no CVA tenderness. Differential includes migraine versus tension headache, electrolyte abnormality, viral gastroenteritis. Given report of seizures on Saturday and unknown fall/head strike will obtain CT head and neck. Less likely ICH/SAH, skull fracture, cervical fracture, malignancy/mass. Unlikely [employer] infection. Plan: labs including keppra level, UA, CT head and neck, pain and nausea management Please refer to course for remaining clinical decision making. Differential Diagnosis Differential Diagnoses: The differential diagnosis associated with the presentation includes As above. Lab Data 05/27/23 09:03 05/27/23 09:03 Labs: Lab Results 05/27/23 05/27/23 05/27/23 Range/Units 09:03 09:03 09:03 WBC 7.1 (4.8-10.8) X10*3/uL RBC 5.29 (4.20-5.50) X10*6/uL Hgb 15.8 (12.0-16.0) g/dl Hct 46.1 (37.0-47.0) % MCV 87.1 (80.0-98.0) fL MCH 29.9 (27.0-33.0) pg MCHC 34.3 (31.0-35.0) g/dl RDW 12.3 (11.0-16.0) % Plt Count 279 (160-400) X10*3/uL MPV 11.2 (9.4-12.3) fL Immature Gran % (Auto) 0.4 (0.0-0.4) % Neut % (Auto) 75.6 H (45-73) % Lymph % (Auto) 17.1 L (20-40) % [place] % (Auto) 5.9 (2-11) % Eos % (Auto) 0.4 (0-4) % Baso % (Auto) 0.6 (0-2) % Lymph # (Auto) 1.2 (1.2-4.9) X10*3/uL [place] # (Auto) 0.4 (0.1-1.2) X10*3/uL Eos # (Auto) 0.0 (0.0-0.4) X10*3/uL Baso # (Auto) 0.0 (0.0-0.2) X10*3/uL Abs Immat Gran (auto) 0.03 (0.00-0.03) X10*3/uL Absolute Neuts (auto) 5.4 (2.0-8.3) x10*3/uL Absolute Nucleated RBC 0.000 (0.0-0.012) X10*3/uL Nucleated RBC % (auto) 0.0 (0.0-0.2) /100WBC Sodium 138 (135-145) mmol/L Potassium 4.1 (3.3-5.1) mmol/L Chloride 106 (96-108) mmol/L Carbon Dioxide 23 (22-29) mmol/L Anion Gap 13 (12-20) BUN 9 (9-16) mg/dL Creatinine 0.79 (0.5-1.4) mg/dL Estim Creat Clear Calc 79.4 Estimated GFR > 60 Random Glucose 101 (60-115) mg/dL Calcium 9.5 (8.4-10.2) mg/dL Magnesium 2.3 (1.6-2.6) mg/dL Total Bilirubin 0.6 (0.0-1.0) mg/dL AST 11 (5-31) U/L ALT 7 (0-31) U/L Alkaline Phosphatase 90 (39-117) U/L Total Protein 6.8 (6.5-8.0) g/dL Albumin 4.1 (3.5-5.0) g/dL Lipase 18 (8-78) U/L Beta HCG, Quant < 2 mIU/mL Urine Color Urine Appearance Urine pH (5.0-9.0) Ur Specific [place] (1.005-1.025) Urine Protein (Neg-Trace) mg/dL Urine Glucose (UA) (Negative) mg/dL Urine Ketones (Negative) mg/dL Urine Blood (Negative) Urine Nitrite (Negative) Ur Leukocyte Esterase (Negative) Urine RBC (0-2) /HPF Urine WBC (0-5) /HPF Ur Squamous Epith Cells (0-2) /HPF Other Crystals Urine Bacteria (None Seen) Hyaline Casts (0-2) /LPF 05/27/23 Range/Units 10:56 WBC (4.8-10.8) X10*3/uL RBC (4.20-5.50) X10*6/uL Hgb (12.0-16.0) g/dl Hct (37.0-47.0) % MCV (80.0-98.0) fL MCH (27.0-33.0) pg MCHC (31.0-35.0) g/dl RDW (11.0-16.0) % Plt Count (160-400) X10*3/uL MPV (9.4-12.3) fL Immature Gran % (Auto) (0.0-0.4) % Neut % (Auto) (45-73) % Lymph % (Auto) (20-40) % [place] % (Auto) (2-11) % Eos % (Auto) (0-4) % Baso % (Auto) (0-2) % Lymph # (Auto) (1.2-4.9) X10*3/uL [place] # (Auto) (0.1-1.2) X10*3/uL Eos # (Auto) (0.0-0.4) X10*3/uL Baso # (Auto) (0.0-0.2) X10*3/uL Abs Immat Gran (auto) (0.00-0.03) X10*3/uL Absolute Neuts (auto) (2.0-8.3) x10*3/uL Absolute Nucleated RBC (0.0-0.012) X10*3/uL Nucleated RBC % (auto) (0.0-0.2) /100WBC Sodium (135-145) mmol/L Potassium (3.3-5.1) mmol/L Chloride (96-108) mmol/L Carbon Dioxide (22-29) mmol/L Anion Gap (12-20) BUN (9-16) mg/dL Creatinine (0.5-1.4) mg/dL Estim Creat Clear Calc Estimated GFR Random Glucose (60-115) mg/dL Calcium (8.4-10.2) mg/dL Magnesium (1.6-2.6) mg/dL Total Bilirubin (0.0-1.0) mg/dL AST (5-31) U/L ALT (0-31) U/L Alkaline Phosphatase (39-117) U/L Total Protein (6.5-8.0) g/dL Albumin (3.5-5.0) g/dL Lipase (8-78) U/L Beta HCG, Quant mIU/mL Urine Color Yellow Urine Appearance Cloudy Urine pH 8.0 (5.0-9.0) Ur Specific [place] 1.015 (1.005-1.025) Urine Protein Negative (Neg-Trace) mg/dL Urine Glucose (UA) Negative (Negative) mg/dL Urine Ketones Trace (Negative) mg/dL Urine Blood Negative (Negative) Urine Nitrite Negative (Negative) Ur Leukocyte Esterase Small (1+) H (Negative) Urine RBC 0-2 (0-2) /HPF Urine WBC 0-5 (0-5) /HPF Ur Squamous Epith Cells 0-2 (0-2) /HPF Other Crystals Present Urine Bacteria 1+ (None Seen) Hyaline Casts 0-2 (0-2) /LPF Independent Interpretation I performed an independent interpretation of an: CT Scan Interpretation: I independently reviewed the CT scan and agree with the radiologist's interpretation. Radiology Impression Discussion of test interpretation with radiology: I have reviewed the radiologist's reading. Radiologist Impression: CT/CT head/brain wo IV con IMPRESSION: No evidence for acute hemorrhage or mass effect. No significant changes since previous evaluation. CT/CT cervical spine wo IV con IMPRESSION: 1.? No evidence for bony fracture. Reversal of lordosis likely related to spasm or patient positioning. 2.? 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 Discharge Plan Discharge Clinical Impression: Headache Patient Disposition: Home, Self-Care Instructions: Acute Headache (DC) Additional Instructions: You have been evaluated in the emergency department today for a headache. Your evaluation did not show evidence of medical conditions requiring emergent intervention at this time, and your pain improves with medication in the ED. We recommend you take 600 mg ibuprofen every 6 hours or Tylenol 650 mg every 6 hours as needed for pain. If needed, you can alternate these medications so that you take 1 medication every 3 hours. For instance, at noon take ibuprofen, then at 3:00 p.m. take Tylenol, then at 6:00 p.m. take ibuprofen. You can also take your prescribed migraine medications. Please follow-up with your primary care provider within 2 days. You should also follow up with your neurologist. Return to the emergency department if you experience worsening or uncontrolled pain, vision changes, recurrent vomiting, difficulty with normal activities, abnormal behavior, difficulty walking, numbness, weakness, or any other concerning symptoms. Prescriptions: No Action [id number] [Fioricet with Codeine] 23-565-61-30 mg capsule 1 cap PO Q4H PRN (Reason: headache) Qty: 14 0RF dicyclomine 20 mg tablet 20 mg PO QID PRN (Reason: Abdominal cramping) Qty: 20 0RF ondansetron HCl [Zofran] 4 mg tablet 4 mg PO Q8H PRN (Reason: nausea and vomiting) Qty: 10 0RF alum-mag hydroxide-simeth [Maalox Advanced] 200-200-20 mg/5 mL suspension 5 ml PO 5XD PRN (Reason: dyspepsia) Qty: 30 0RF Rx Instructions: administer between meals and at bedtime famotidine [Pepcid] 20 mg tablet 20 mg PO DAILY Qty: 14 0RF escitalopram oxalate [Lexapro] 10 mg tablet 10 mg PO DAILY Qty: 30 0RF quetiapine [Seroquel] 25 mg tablet 25 mg PO TID Qty: 45 0RF ondansetron HCl 4 mg tablet 4 mg PO Q8H Qty: 14 0RF ibuprofen 800 mg tablet 800 mg PO Q8H PRN (Reason: pain) Qty: 14 0RF cyclobenzaprine 10 mg tablet 10 mg PO Q8H Qty: 14 0RF Alyacen 1/35 (28) 1-35 mg-mcg tablet 1 tab PO DAILY azithromycin [Zithromax TRI-ANGELA] 500 mg tablet 500 mg PO DAILY 3 Days Qty: 3 0RF codeine-guaifenesin 10-100 mg/5 mL liquid 10 ml PO Q6H PRN (Reason: cough) Qty: 237 0RF topiramate 50 mg tablet 50 mg PO .QHS 30 Days Qty: 30 0RF lorazepam [Ativan] 1 mg tablet 1 mg PO BID PRN (Reason: anxiety) Qty: 6 0RF prednisone 20 mg tablet 20 mg PO DAILY 5 Days Qty: 5 0RF albuterol sulfate [ProAir HFA] 90 mcg/actuation HFA aerosol inhaler 2 puff inhalation Q4H PRN (Reason: wheezing) Stand Alone Forms: Work/School Release
[2023-05-27 08:52] VITALS: TEMP 36.7
[2023-05-27 09:10] LABS: MANUAL DIFF FLAG NO
[2023-05-27 09:11] LABS: Basophils Percent Auto 0.6 % (0-2); Eosinophils Percent Auto 0.4 % (0-4); Hematocrit 46.1 % (37.0-47.0); Hemoglobin 15.8 g/dl (12.0-16.0); Imm Gran Abs Auto 0.03 X10*3/uL (0.00-0.03); Imm Gran Pct Auto 0.4 % (0.0-0.4); Lymphocytes Absolute Auto 1.2 X10*3/uL (1.2-4.9); Lymphocytes Percent Auto 17.1 % (20-40); Mean Corpuscular HGB Conc 34.3 g/dl (31.0-35.0); Mean Corpuscular Hemoglobin 29.9 pg (27.0-33.0); Mean Corpuscular Volume 87.1 fL (80.0-98.0); Mean Platelet Volume 11.2 fL (9.4-12.3); Monocytes Absolute Auto 0.4 X10*3/uL (0.1-1.2); Monocytes Percent Auto 5.9 % (2-11); Neutrophils Absolute Auto 5.4 x10*3/uL (2.0-8.3); Neutrophils Percent Auto 75.6 % (45-73); Platelet Count 279 X10*3/uL (160-400); Red Blood Count 5.29 X10*6/uL (4.20-5.50); Red Cell Distribution Width 12.3 % (11.0-16.0); White Blood Count 7.1 X10*3/uL (4.8-10.8)
[2023-05-27] MEDS: hydrOXYzine HCL 25 MG TABLET PO (09:15)
[2023-05-27] MEDS: Ondansetron ODT 4 MG TAB.RAPDIS TRANSLINGU (09:15)
[2023-05-27] MEDS: Butalb/Acetamin/Caff 50/325/40 TABLET 2 TAB PO (09:15)
[2023-05-27] MEDS: 0.9 % Sodium Chloride 1,000 ML 999 ML IV (09:16)
[2023-05-27 09:38] LABS: Alanine Aminotransferase 7 U/L (0-31); Albumin Level 4.1 g/dL (3.5-5.0); Alkaline Phosphatase 90 U/L (39-117); Anion Gap 13 (12-20); Aspartate Amino Transferase 11 U/L (5-31); Bilirubin Total 0.6 mg/dL (0.0-1.0); Blood Urea Nitrogen 9 mg/dL (9-16); Calcium 9.5 mg/dL (8.4-10.2); Carbon Dioxide 23 mmol/L (22-29); Chloride 106 mmol/L (96-108); Creatinine Clr Calc Pharmacy 79.4; Estimated Glomerular Filt Rate > 60; Glucose Random 101 mg/dL (60-115); Lipase 18 U/L (8-78); Magnesium 2.3 mg/dL (1.6-2.6); Potassium 4.1 mmol/L (3.3-5.1); Sodium 138 mmol/L (135-145); Total Protein 6.8 g/dL (6.5-8.0)
[2023-05-27 09:43] LABS: HCG Quantitative < 2 mIU/mL
[2023-05-27 10:30] VITALS: BP 111/76; PULSE 74; RESP 18; O2SAT 98
--- NOTE | 2023-05-27 10:31 | PC.NURSE ---
Alert and oriented. reports no longer has a headache just feels tired. oob to commode to void.
[2023-05-27 11:02] LABS: Appearance Urine Cloudy; Color Urine Yellow; Glucose Urine UA Negative (Negative); Leukocyte Esterase Urine Small (1+) (Negative); Nitrite Urine Negative (Negative); Specific Gravity - Urine 1.015 (1.005-1.025); UMIC TRIGGER UACC YES; Urine Blood Negative (Negative); Urine Ketones Trace mg/dL (Negative); Urine Protein Negative (Neg-Trace)
[2023-05-27 11:12] LABS: Bacteria Urine 1+ (None Seen); Hyaline Casts Urine 0-2 /LPF (0-2); Other Crystals Urine Present; RBC Urine 0-2 /HPF (0-2); Squamous Epithelial Cell Urine 0-2 /HPF (0-2); UACC Culture Trigger YES; WBC Urine 0-5 /HPF (0-5)
--- NOTE | 2023-05-27 11:18 | PC.NURSE ---
Headache has improved to 1/10, given food as requested. Awaits d/c
== END 2023-05-27 12:18 | disposition home or self-care (01) ==
PROVIDERS: Registered Nurse Emergency; Emergency Provider Emergency Medicine; PCP Internal Medicine
DX: R51.9 Headache, unspecified (principal); F41.1 Generalized anxiety disorder; G40.909 Epilepsy, unspecified, not intractable, without status epilepticus; Z79.899 Other long term (current) drug therapy
CPT/HCPCS: 36415; 70450; 72125; 80053; 80177; 81001; 81003; 83690; 83735; 84702; 85025; 87086; 96360; 96361; 99284

== ENCOUNTER 2023-05-27 21:44 | Emergency (ER) | payer OTHER, SELFPAY ==
--- NOTE | ~2023-05-27 | XR_ITS ---
EXAMINATION: XR HAND, RIGHT CLINICAL INFORMATION: Injury COMPARISON: None available. TECHNIQUE: PA, lateral, and oblique views of the right hand. FINDINGS: The bones are osteopenic. Bone alignment is normal. No fracture or dislocation. Normal joint spaces. Normal soft tissues. XR/XR hand RT min 3V IMPRESSION: Osteopenia.
[2023-05-27 21:49] VITALS: BP 129/86; PULSE 97; RESP 20; TEMP 36.4; O2SAT 97; BMI 24.4
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
--- NOTE | 2023-05-28 00:43 | ED.EXTPRO ---
HPI - Extremity Problem General Chief complaint: Extremity Injury, Upper Stated complaint: right hand injury Time Seen by Provider: 05/28/23 00:41 Source: patient, RN notes reviewed and old records reviewed Mode of arrival: ambulatory Limitations: no limitations History of Present Illness HPI Narrative: 33-year-old female presents for evaluation of right hand laceration. Patient reports that she accidentally cut her right hand on a plate glass around 9:00 p.m., just prior to arrival She reports that she went to the fire department controlled the bleeding for her Does not know when her last tetanus shot was She reports her pain is 7/10 No other complaints or concerns at this time. Related Data Home Medications Medication Instructions Recorded Confirmed norethindrone 1 mg-ethinyl 1 tab PO DAILY 09/22/21 08/09/22 estradiol 35 mcg tablet (Alyacen) albuterol sulfate 90 mcg/actuation 2 puff inhalation Q4H PRN wheezing 08/09/22 08/09/22 aerosol inhaler (ProAir HFA) Previous Rx's Medication Instructions Recorded butalbital 50 mg-acetaminophen 300 1 cap PO Q4H PRN headache #14 caps 03/22/21 mg-caffeine 40 mg-codeine 30 mg cap (Fioricet with Codeine) aluminum-mag hydroxide-simethicone 5 ml PO 5XD PRN dyspepsia #30 mL 09/21/21 200 mg-200 mg-20 mg/5 mL oral susp (Maalox Advanced) dicyclomine 20 mg tablet 20 mg PO QID PRN Abdominal 09/21/21 cramping #20 tabs famotidine 20 mg tablet (Pepcid) 20 mg PO DAILY #14 tabs 09/21/21 ondansetron HCl 4 mg tablet 4 mg PO Q8H PRN nausea and 09/21/21 (Zofran) vomiting #10 tabs azithromycin 500 mg tablet 500 mg PO DAILY 3 days #3 tabs 11/10/21 (Zithromax TRI-ANGELA) codeine 10 mg-guaifenesin 100 mg/5 10 ml PO Q6H PRN cough #237 mL 11/10/21 mL oral liquid prednisone 20 mg tablet 20 mg PO DAILY 5 days #5 tabs 07/23/22 topiramate 50 mg tablet 50 mg PO .QHS 30 days #30 tabs 08/03/22 escitalopram oxalate 10 mg tablet 10 mg PO DAILY #30 tabs 09/18/22 (Lexapro) quetiapine 25 mg tablet (Seroquel) 25 mg PO TID #45 tabs 09/18/22 cyclobenzaprine 10 mg tablet 10 mg PO Q8H #14 tabs 11/21/22 ibuprofen 800 mg tablet 800 mg PO Q8H PRN pain #14 tabs 11/21/22 ondansetron HCl 4 mg tablet 4 mg PO Q8H #14 tabs 11/21/22 lorazepam 1 mg tablet (Ativan) 1 mg PO BID PRN anxiety #6 tabs 05/26/23 Allergies Allergy/AdvReac Type Severity Reaction Status Date / Time amoxicillin [AMOXICILLIN] Allergy Unknown HIVES Verified 08/09/22 11:27 Penicillins Allergy Rash Verified 05/27/23 21:49 Review of Systems Constitutional: Constitutional: Reports as per HPI, Denies chills, Denies fatigue and Denies fever(s) Genitourinary: Genitourinary: Denies dysuria Integumentary/Breasts: Skin/Breast: Reports wounds Neurologic: Denies focal weakness Endocrine: Endocrine: Denies fatigue PMFSH Past Medical History Medical History Epilepsy Social History Social History Alcohol intake: never Patient Tobacco Use Status: Never used Tobacco Smoked in Last 30 Days: No Use of substances other than those prescribed or required for medical reasons: No Advance Directives: No Advance Directives Information Provided: Yes Patient : No Physical Exam Vital Signs: Vital Signs: Last Vital Signs Temp 97.6 F 05/27/23 21:49 Pulse 97 05/27/23 21:49 Resp 20 05/27/23 21:49 BP 129/86 05/27/23 21:49 Pulse Ox 97 05/27/23 21:49 O2 Del Method Room Air 05/27/23 21:49 BMI result Body Mass Index 24.4 Const: General: healthy appearing, comfortable, no acute distress, alert and awake Nutritional Appearance: well nourished Orientation/consciousness: patient oriented x3 HEENT: Head: Yes normocephalic and Yes atraumatic Eyes: Eyelids: Yes eyelids normal Conjunctivae: conjunctivae normal Sclerae: sclerae normal Corneas: corneas normal Pupils: Equal, round and reactive pupils present EOM: EOMs intact bilaterally Neck: Neck: Yes full ROM Resp: Effort & Inspection: normal respiratory effort, no audible wheezes and not labored Skin: Other: 2.5 cm linear, full-thickness laceration to the palmar surface the right hand the base of thumb. No active bleeding. General skin exam: elasticity normal Neuro: General: patient oriented x3 Cranial nerves: Yes Equal, round and reactive pupils present and Yes Bilaterally intact EOM present Cognition (Neuro): normal cognition Medications Administered Discontinued Medications Generic Name Dose Route Start Last Admin Trade Name Freq PRN Reason Stop Dose Admin Lidocaine HCl 5 ml 05/28/23 00:43 05/28/23 01:00 Lidocaine Hcl 1 % Mpf 5 Ml Vial INFILTRATI 05/28/23 00:44 5 ml ONCE ONE Administration Medical Decision Making Medical Decision Making MDM Narrative: Patient has a small laceration, x-ray shows no evidence of retained foreign body. See procedure note for wound repair. Patient declines tetanus booster today. Differential Diagnosis Laceration Skin tear Puncture wound Abrasion Procedures Laceration Laceration 1: Site: hand (Right hand) Side (If applicable): right Size (cm): 3 Description: linear Depth: simple, single layer Local Anesthetic: lidocaine 1% Amount of anesthesia used (mL): 4 Skin layer closed with: nylon Size (cm): 5-0 Number of sutures: 5 Technique: simple, interrupted Discharge Plan Discharge Clinical Impression: Laceration of hand, right Patient Disposition: Home, Self-Care Instructions: Laceration (ED) Additional Instructions: You had 5 sutures placed to your right hand today. These can be removed in 7-10 days Keep the area clean and dry Follow-up with your primary doctor Prescriptions: No Action lwwzqbuxde-[id number]-cod [Fioricet with Codeine] 28-925-60-30 mg capsule 1 cap PO Q4H PRN (Reason: headache) Qty: 14 0RF dicyclomine 20 mg tablet 20 mg PO QID PRN (Reason: Abdominal cramping) Qty: 20 0RF ondansetron HCl [Zofran] 4 mg tablet 4 mg PO Q8H PRN (Reason: nausea and vomiting) Qty: 10 0RF alum-mag hydroxide-simeth [Maalox Advanced] 200-200-20 mg/5 mL suspension 5 ml PO 5XD PRN (Reason: dyspepsia) Qty: 30 0RF Rx Instructions: administer between meals and at bedtime famotidine [Pepcid] 20 mg tablet 20 mg PO DAILY Qty: 14 0RF escitalopram oxalate [Lexapro] 10 mg tablet 10 mg PO DAILY Qty: 30 0RF quetiapine [Seroquel] 25 mg tablet 25 mg PO TID Qty: 45 0RF ondansetron HCl 4 mg tablet 4 mg PO Q8H Qty: 14 0RF ibuprofen 800 mg tablet 800 mg PO Q8H PRN (Reason: pain) Qty: 14 0RF cyclobenzaprine 10 mg tablet 10 mg PO Q8H Qty: 14 0RF Alyacen 135 (28) 1-35 mg-mcg tablet 1 tab PO DAILY azithromycin [Zithromax TRI-ANGELA] 500 mg tablet 500 mg PO DAILY 3 Days Qty: 3 0RF codeine-guaifenesin 10-100 mg/5 mL liquid 10 ml PO Q6H PRN (Reason: cough) Qty: 237 0RF topiramate 50 mg tablet 50 mg PO .QHS 30 Days Qty: 30 0RF lorazepam [Ativan] 1 mg tablet 1 mg PO BID PRN (Reason: anxiety) Qty: 6 0RF prednisone 20 mg tablet 20 mg PO DAILY 5 Days Qty: 5 0RF albuterol sulfate [ProAir HFA] 90 mcg/actuation HFA aerosol inhaler 2 puff inhalation Q4H PRN (Reason: wheezing)
[2023-05-28] MEDS: Lidocaine HCl 1 % MPF 5 ML VIAL INFILTRATI (01:00)
== END 2023-05-28 01:38 | disposition home or self-care (01) ==
PROVIDERS: Emergency Provider Internal Medicine
DX: S61.411A Laceration without foreign body of right hand, initial encounter (principal); W25.XXXA Contact with sharp glass, initial encounter; Y93.9 Activity, unspecified; Y92.9 Unspecified place or not applicable; Y99.9 Unspecified external cause status; Z79.899 Other long term (current) drug therapy
CPT/HCPCS: 12002; 73130; 99284

== ENCOUNTER 2023-06-29 11:14 | Emergency (ER) | payer OTHER, SELFPAY ==
--- NOTE | ~2023-06-29 | CT_ITS ---
EXAMINATION: CT HEAD WITHOUT CONTRAST CLINICAL INFORMATION: Headache history of brain tumor and family COMPARISON: CT head from 05/27/2023 TECHNIQUE: Contiguous axial imaging was performed from the skull base to vertex without intravenous administration of contrast. This CT examination was performed using dose optimization techniques as appropriate, variously including the following: *Automated exposure control *Adjustment of mA and/or kV according to patient size (this includes techniques or standardized protocols for targeted exams where dose is matched to indication/reason for exam; i.e. extremities or head) *Use of iterative reconstruction technique DLP: 587 mGy-cm FINDINGS: There is no evidence of acute intracranial hemorrhage or territorial infarction. No abnormal mass effect or midline shift is seen. Rose to white matter differentiation is well preserved. No extra-axial fluid collections are identified. The ventricles are normal in size. There is no abnormal attenuation within the brain parenchyma. The osseous structures and soft tissues are normal. The mastoid air cells and visualized portions of the paranasal sinuses are well aerated. CT/CT head/brain wo IV con IMPRESSION: No acute intracranial pathology.
[2023-06-29 11:35] VITALS: BP 113/76; PULSE 86; RESP 16; TEMP 36; O2SAT 96; BMI 23.8
--- NOTE | 2023-06-29 11:36 | ED_ITS ---
HPI - General Adult General Chief complaint: Headache Stated complaint: headache, fatigued Time Seen by Provider: 06/29/23 12:46 Source: patient Mode of arrival: ambulatory Limitations: no limitations History of Present Illness HPI narrative: 33 year old female with history significant for TRISTIAN, MDD, epilepsy, and m igraines presenting to the ED today with a complaint of worsening headache and right temporal pain/ tenderness x3 days with associated swelling of the vessels on the right side of her head. The pain has moved behind her right eye and radiates to the right ear/ down the right neck, no pain with eye movement. The pain is making her dizzy and nauseous however she has not vomited, and at this time not feeling dizzy. Reports taking OTC sinus medications without relief. States she has a history of migraines however this feels worse. Admits her father was recently seen at [facility] for a brain tumor and has had anxiety surrounding this with the symptoms she would like head CT. Reports history of epilepsy however has not followed up with her neurologist in some time, takes topiramate daily with no missed dosages,.. Denies recent seizure-like activity. Denies blurred or double vision, fever/ chills, V, photophobia, chest pain, shortness of breath. NIHSS-0 Related Data Home Medications Medication Instructions Recorded Confirmed norethindrone 1 mg-ethinyl 1 tab PO DAILY 09/22/21 08/09/22 estradiol 35 mcg tablet (Alyacen) albuterol sulfate 90 mcg/actuation 2 puff inhalation Q4H PRN wheezing 08/09/22 08/09/22 aerosol inhaler (ProAir HFA) Previous Rx's Medication Instructions Recorded butalbital 50 mg-acetaminophen 300 1 cap PO Q4H PRN headache #14 caps 03/22/21 mg-caffeine 40 mg-codeine 30 mg cap (Fioricet with Codeine) aluminum-mag hydroxide-simethicone 5 ml PO 5XD PRN dyspepsia #30 mL 09/21/21 200 mg-200 mg-20 mg/5 mL oral susp (Maalox Advanced) dicyclomine 20 mg tablet 20 mg PO QID PRN Abdominal 09/21/21 cramping #20 tabs famotidine 20 mg tablet (Pepcid) 20 mg PO DAILY #14 tabs 09/21/21 ondansetron HCl 4 mg tablet 4 mg PO Q8H PRN nausea and 09/21/21 (Zofran) vomiting #10 tabs azithromycin 500 mg tablet 500 mg PO DAILY 3 days #3 tabs 11/10/21 (Zithromax TRI-ANGELA) codeine 10 mg-guaifenesin 100 mg/5 10 ml PO Q6H PRN cough #237 mL 11/10/21 mL oral liquid prednisone 20 mg tablet 20 mg PO DAILY 5 days #5 tabs 07/23/22 topiramate 50 mg tablet 50 mg PO .QHS 30 days #30 tabs 08/03/22 escitalopram oxalate 10 mg tablet 10 mg PO DAILY #30 tabs 09/18/22 (Lexapro) quetiapine 25 mg tablet (Seroquel) 25 mg PO TID #45 tabs 09/18/22 cyclobenzaprine 10 mg tablet 10 mg PO Q8H #14 tabs 11/21/22 ibuprofen 800 mg tablet 800 mg PO Q8H PRN pain #14 tabs 11/21/22 ondansetron HCl 4 mg tablet 4 mg PO Q8H #14 tabs 11/21/22 lorazepam 1 mg tablet (Ativan) 1 mg PO BID PRN anxiety #6 tabs 05/26/23 diphenhydramine HCl 25 mg capsule 25 mg PO TID PRN allergic reaction 06/29/23 (Benadryl) #20 caps ketorolac 10 mg tablet 10 mg PO TID PRN pain 5 days #15 06/29/23 tabs Allergies Allergy/AdvReac Type Severity Reaction Status Date / Time amoxicillin [AMOXICILLIN] Allergy Unknown HIVES Verified 06/29/23 11:40 Penicillins Allergy Rash Verified 06/29/23 11:40 Review of Systems Review of Systems: Constitutional : No Weight loss, No Fever, No Chills, no Fatigue, No Malaise ENT/Mouth : No sore throat, No Rhinorrhea, +facial pain Eyes: No Eye Pain, No Swelling, No Redness Cardiovascular : No Chest Pain, No SOB, No Dyspnea on Exertion, No Orthopnea, No Edema, No Palpitations Respiratory : No Cough, No Sputum, No Wheezing Gastrointestinal : + Nausea, No Vomiting, No Diarrhea, No Constipation, No abdominal Pain, No Hematochezia, No Melena Genitourinary : No Dysuria, No Urinary Frequency, No Hematuria, Musculoskeletal : No joint pain, No Myalgias, No Joint Swelling Skin : No Skin Lesions, No rash Neuro : No Weakness, No Numbness, + Dizziness, + Headache Psych : No Anxiety/Panic, No Depression All other systems reviewed and are negative Yes all other systems are reviewed and are negative [facility] Past Medical History Attestation statement: The following information was validated with the patient. Source: old records reviewed and nursing notes reviewed Medical History Epilepsy Social History Social History Alcohol intake: never Patient Tobacco Use Status: Never used Tobacco Advance Directives: No Physical Exam ED Vital Signs: Vital Signs - 24 hr 06/29/23 11:35 06/29/23 12:00 06/29/23 14:00 Temperature 96.8 F 98.3 F 98.1 F Pulse Rate 86 81 66 Respiratory Rate 16 16 16 Blood Pressure 113/76 109/80 107/72 Pulse Oximetry 96 97 99 Oxygen Delivery Method Room Air Room Air Room Air 06/29/23 16:00 Temperature 98.5 F Pulse Rate 75 Respiratory Rate 16 Blood Pressure 107/78 Pulse Oximetry 100 Oxygen Delivery Method Room Air BMI result Body Mass Index 23.8 vss Appearance: Alert.? Oriented X3.? No acute distress.? Appears anxious. Head: Normocephalic, atraumatic, no step-offs or deformities, diffuse scalp tenderness to palpation, tenderness over the right adventism, right temporal artery not palpable. Eyes: Pupils equal, round and reactive to light.? Normal EOM without pain. ENT: Pharynx normal.??External ears normal, TMs normal bilaterally and EAC's normal. No pain with manipulation of external ears bilaterally. No mastoid tenderness. Neck: Normal inspection.? Neck supple.? CVS: Normal heart rate and rhythm.? Pulses normal.? Respiratory: No respiratory distress.?Breath sounds normal.? Abdomen: Soft and nontender.? Skin: Skin warm and dry.? Normal skin color.? Normal skin turgor.? Extremities: No lower extremity edema.? No calf ttp. 5/5 strength to bilateral upper and lower extremities Back: No midline tenderness, no C-spine tenderness, full range of motion, no CVA tenderness bilaterally Neuro: Oriented X 3.? No motor deficit.? No sensory deficit. CN 2-12 intact. Normal [id number] and [id number]. Ambulating with steady gait. Course Course Course Narrative: This is a rapid medical exam: Additional HPI, ROS, PE not included below will be deferred to primary provider. Patient is a 33-year-old female with history of migraines, epilepsy, MDD, anxiety presenting to the ED with complaint of heada prakash which began 3 days ago. States pain has worsened since onset. This morning developed associated dizziness. Took sinus medication today without relief. Complains of pain to right side of head radiating down neck. States has also had nasal congestion and right ear pain. Reports nausea, denies vomiting. Reports a little bit of photophobia. Reevaluation(s) Reevaluation #1: Patient's CBC unremarkable. Normal ESR and CRP. Chemistry no acute findings requiring intervention. Beta hCG negative. Head CT unremarkable. Patient reports her headache was pretty severe when she got here. However, now is down to a 3/10, feels much better. Feels better to know that her head CT is unremarkable. Educated patient on diagnosis and treatment plan, answered all question, patient verbalizes understanding. At this time patient will be discharged home, advised to return with new or worsening symptoms. Educated on worrisome signs and symptoms and when to return. At this time I feel comfortable discharge home. Time: 16:28 Medications Administered Discontinued Medications Generic Name Dose Route Start Last Admin Trade Name Lori PRN Reason Stop Dose Admin Diphenhydramine HCl 25 mg 06/29/23 13:19 06/29/23 14:01 Diphenhydramine Hcl 50 Mg/Ml Vial IVPUSH 06/29/23 13:20 25 mg ONCE ONE Administration Ketorolac Tromethamine 15 mg 06/29/23 13:19 06/29/23 14:01 Ketorolac Tromethamine 15 Mg/Ml Vial IVPUSH 06/29/23 13:20 15 mg ONCE ONE Administration Ondansetron HCl 4 mg 06/29/23 13:19 06/29/23 14:00 Ondansetron Hcl 4 Mg/2 Ml Vial IVPUSH 06/29/23 13:20 4 mg ONCE ONE Administration Medical Decision Making Medical Decision Making [facility] Narrative: 1256 33 yo female with worsening WHITE, adventism pain, dizziness, fatigue x3 days Physical exam notable for disease diffuse scalp tenderness, tenderness over the right adventism, non palpable temporal artery, cerebellum intact. Clinical suspicion for migraine versus giant cell arteritis versus trigeminal neuralgia and will obtain inflammatory markers to rule this out. Unlikely ICH, seizure, CVA, posterior stroke as exam is nonfocal and cerebellar exam is intact. Low suspicion for meningitis or encephalitis as patient is afebrile and labs are unremarkable. Patient complaining of right jaw/neck pain however low clinical suspicion for ACS, dissection, endocarditis, myocarditis, pericarditis as patient the does not have a significant cardiac history and is not present with chest pain or LUCAS. Possible cervical muscle sprain/strain however no trauma or injury to the neck. No signs of otitis media, otitis externa mastoiditis. Plan: Labs, pain control Differential Diagnosis Differential Diagnoses: The differential diagnosis associated with the presentation includes Clinical suspicion for giant cell arteritis versus trigeminal neuralgia versus migraine and will obtain inflammatory markers. Unlikely ICH, seizure, CVA, posterior stroke as exam is nonfocal and cerebellar exam is intact. Low suspicion for meningitis or encephalitis as patient is afebrile and labs are unremarkable. Patient complaining of right jaw/neck pain however low clinical suspicion for ACS, dissection, endocarditis, myocarditis, pericarditis as patient the does not have a significant cardiac history and is not present with chest pain or LUCAS. Possible cervical muscle sprain/strain however no trauma or injury to the neck.No signs of otitis media, otitis externa mastoiditis. Admission/Observation Consideration of admission/observation: Escalation of care including admission/observation considered Not indicated Lab Data [facility] Lab Attestation statement: I reviewed the patient's lab results. 06/29/23 13:17 06/29/23 13:17 Labs: Lab Results 06/29/23 06/29/23 06/29/23 Range/Units 13:17 13:17 13:17 WBC 10.2 (4.8-10.8) X10*3/uL RBC 5.14 (4.20-5.50) X10*6/uL Hgb 15.1 (12.0-16.0) g/dl Hct 45.3 (37.0-47.0) % MCV 88.1 (80.0-98.0) fL MCH 29.4 (27.0-33.0) pg MCHC 33.3 (31.0-35.0) g/dl RDW 12.3 (11.0-16.0) % Plt Count 290 (160-400) X10*3/uL MPV 10.4 (9.4-12.3) fL Immature Gran % (Auto) 0.3 (0.0-0.4) % Neut % (Auto) 80.5 H (45-73) % Lymph % (Auto) 13.9 L (20-40) % Heard % (Auto) 4.6 (2-11) % Eos % (Auto) 0.2 (0-4) % Baso % (Auto) 0.5 (0-2) % Lymph # (Auto) 1.4 (1.2-4.9) X10*3/uL Heard # (Auto) 0.5 (0.1-1.2) X10*3/uL Eos # (Auto) 0.0 (0.0-0.4) X10*3/uL Baso # (Auto) 0.1 (0.0-0.2) X10*3/uL Abs Immat Gran (auto) 0.03 (0.00-0.03) X10*3/uL Absolute Neuts (auto) 8.2 (2.0-8.3) x10*3/uL Absolute Nucleated RBC 0.000 (0.0-0.012) X10*3/uL Nucleated RBC % (auto) 0.0 (0.0-0.2) /100WBC ESR 1 (0-20) MM/HR Sodium 139 (135-145) mmol/L Potassium 4.0 (3.3-5.1) mmol/L Chloride 106 (96-108) mmol/L Carbon Dioxide 23 (22-29) mmol/L Anion Gap 14 (12-20) BUN 10 (9-16) mg/dL Creatinine 0.65 (0.5-1.4) mg/dL Estim Creat Clear Calc 92.0 Estimated GFR > 60 Random Glucose 90 (60-115) mg/dL Calcium 9.3 (8.4-10.2) mg/dL Magnesium 2.1 (1.6-2.6) mg/dL Total Bilirubin 0.3 (0.0-1.0) mg/dL AST 11 (5-31) U/L ALT 11 (0-31) U/L Alkaline Phosphatase 91 (39-117) U/L Total Creatine Kinase 34 (26-140) U/L C-Reactive Protein 0.39 (< or = 0.50) mg/dL Total Protein 6.3 L (6.5-8.0) g/dL Albumin 4.1 (3.5-5.0) g/dL Beta HCG, Quant mIU/mL 06/29/23 Range/Units 13:17 WBC (4.8-10.8) X10*3/uL RBC (4.20-5.50) X10*6/uL Hgb (12.0-16.0) g/dl Hct (37.0-47.0) % MCV (80.0-98.0) fL MCH (27.0-33.0) pg MCHC (31.0-35.0) g/dl RDW (11.0-16.0) % Plt Count (160-400) X10*3/uL MPV (9.4-12.3) fL Immature Gran % (Auto) (0.0-0.4) % Neut % (Auto) (45-73) % Lymph % (Auto) (20-40) % Heard % (Auto) (2-11) % Eos % (Auto) (0-4) % Baso % (Auto) (0-2) % Lymph # (Auto) (1.2-4.9) X10*3/uL Heard # (Auto) (0.1-1.2) X10*3/uL Eos # (Auto) (0.0-0.4) X10*3/uL Baso # (Auto) (0.0-0.2) X10*3/uL Abs Immat Gran (auto) (0.00-0.03) X10*3/uL Absolute Neuts (auto) (2.0-8.3) x10*3/uL Absolute Nucleated RBC (0.0-0.012) X10*3/uL Nucleated RBC % (auto) (0.0-0.2) /100WBC ESR (0-20) MM/HR Sodium (135-145) mmol/L Potassium (3.3-5.1) mmol/L Chloride (96-108) mmol/L Carbon Dioxide (22-29) mmol/L Anion Gap (12-20) BUN (9-16) mg/dL Creatinine (0.5-1.4) mg/dL Estim Creat Clear Calc Estimated GFR Random Glucose (60-115) mg/dL Calcium (8.4-10.2) mg/dL Magnesium (1.6-2.6) mg/dL Total Bilirubin (0.0-1.0) mg/dL AST (5-31) U/L ALT (0-31) U/L Alkaline Phosphatase (39-117) U/L Total Creatine Kinase (26-140) U/L C-Reactive Protein (< or = 0.50) mg/dL Total Protein (6.5-8.0) g/dL Albumin (3.5-5.0) g/dL Beta HCG, Quant < 2 mIU/mL Independent Interpretation I performed an independent interpretation of an: CT Scan (Unremarkable) Radiology Impression Discussion of test interpretation with radiology: I have reviewed the [facility] ologist's reading. Prescription Management I considered prescription management with: Other (Toradol) Core Measures AMI core measures followed: Yes Measure exclusions: not indicated Discharge Plan Discharge Clinical Impression: Migraine Patient Disposition: Home, Self-Care Instructions: Migraine Headache (ED) Additional Instructions: Take your medications as prescribed. If you were prescribed antibiotics today, it is important that you take your medication to their entirety, do not skip any doses, do not finish them early. Follow-up with your primary care provider this week. Return to the emergency department with new or worsening symptoms. In case of emergency call 911 Toradol has been sent to your pharmacy, you tolerated this well in the department. Please take this as prescribed do not take this with ibuprofen, or other NSAIDs, do not mix this with alcohol. Side effects of this medication including increased risk for bleeding and possible kidney injury. CT/CT head/brain wo IV con FINDINGS: There is no evidence of acute intracranial hemorrhage or territorial infarction. No abnormal mass effect or midline shift is seen. Rose to white matter differentiation is well preserved. No extra-axial fluid collections are identified. The ventricles are normal in size. There is no abnormal attenuation within the brain parenchyma. The osseous structures and soft tissues are normal. The mastoid air cells and visualized portions of the paranasal sinuses are well aerated. ? IMPRESSION: No acute intracranial pathology. Prescriptions: New ketorolac 10 mg tablet 10 mg PO TID PRN (Reason: pain) 5 Days Qty: 15 0RF diphenhydramine HCl [Benadryl] 25 mg capsule 25 mg PO TID PRN (Reason: allergic reaction) Qty: 20 0RF No Action gibakbparr-zhrvkjhggn-jsb-cod [Fioricet with Codeine] 54-747-17-30 mg capsule 1 cap PO Q4H PRN (Reason: headache) Qty: 14 0RF dicyclomine 20 mg tablet 20 mg PO QID PRN (Reason: Abdominal cramping) Qty: 20 0RF ondansetron HCl [Zofran] 4 mg tablet 4 mg PO Q8H PRN (Reason: nausea and vomiting) Qty: 10 0RF alum-mag hydroxide-simeth [Maalox Advanced] 200-200-20 mg/5 mL suspension 5 ml PO 5XD PRN (Reason: dyspepsia) Qty: 30 0RF Rx Instructions: administer between meals and at bedtime famotidine [Pepcid] 20 mg tablet 20 mg PO DAILY Qty: 14 0RF escitalopram oxalate [Lexapro] 10 mg tablet 10 mg PO DAILY Qty: 30 0RF quetiapine [Seroquel] 25 mg tablet 25 mg PO TID Qty: 45 0RF ondansetron HCl 4 mg tablet 4 mg PO Q8H Qty: 14 0RF ibuprofen 800 mg tablet 800 mg PO Q8H PRN (Reason: pain) Qty: 14 0RF cyclobenzaprine 10 mg tablet 10 mg PO Q8H Qty: 14 0RF Alyacen 1/35 (28) 1-35 mg-mcg tablet 1 tab PO DAILY azithromycin [Zithromax TRI-ANGELA] 500 mg tablet 500 mg PO DAILY 3 Days Qty: 3 0RF codeine-guaifenesin 10-100 mg/5 mL liquid 10 ml PO Q6H PRN (Reason: cough) Qty: 237 0RF topiramate 50 mg tablet 50 mg PO .QHS 30 Days Qty: 30 0RF lorazepam [Ativan] 1 mg tablet 1 mg PO BID PRN (Reason: anxiety) Qty: 6 0RF prednisone 20 mg tablet 20 mg PO DAILY 5 Days Qty: 5 0RF albuterol sulfate [ProAir HFA] 90 mcg/actuation HFA aerosol inhaler 2 puff inhalation Q4H PRN (Reason: wheezing) [place] [facility] [place] [facility] [place] - 5 days Stand Alone Forms: Work/School Release
[2023-06-29 12:00] VITALS: BP 109/80; PULSE 81; RESP 16; TEMP 36.8; O2SAT 97
[2023-06-29 13:22] LABS: MANUAL DIFF FLAG NO
[2023-06-29 13:23] LABS: Basophils Absolute Auto 0.1 X10*3/uL (0.0-0.2); Basophils Percent Auto 0.5 % (0-2); Eosinophils Percent Auto 0.2 % (0-4); Hematocrit 45.3 % (37.0-47.0); Hemoglobin 15.1 g/dl (12.0-16.0); Imm Gran Abs Auto 0.03 X10*3/uL (0.00-0.03); Imm Gran Pct Auto 0.3 % (0.0-0.4); Lymphocytes Absolute Auto 1.4 X10*3/uL (1.2-4.9); Lymphocytes Percent Auto 13.9 % (20-40); Mean Corpuscular HGB Conc 33.3 g/dl (31.0-35.0); Mean Corpuscular Hemoglobin 29.4 pg (27.0-33.0); Mean Corpuscular Volume 88.1 fL (80.0-98.0); Mean Platelet Volume 10.4 fL (9.4-12.3); Monocytes Absolute Auto 0.5 X10*3/uL (0.1-1.2); Monocytes Percent Auto 4.6 % (2-11); Neutrophils Absolute Auto 8.2 x10*3/uL (2.0-8.3); Neutrophils Percent Auto 80.5 % (45-73); Platelet Count 290 X10*3/uL (160-400); Red Blood Count 5.14 X10*6/uL (4.20-5.50); Red Cell Distribution Width 12.3 % (11.0-16.0); White Blood Count 10.2 X10*3/uL (4.8-10.8)
[2023-06-29 13:39] LABS: Alanine Aminotransferase 11 U/L (0-31); Albumin Level 4.1 g/dL (3.5-5.0); Alkaline Phosphatase 91 U/L (39-117); Anion Gap 14 (12-20); Aspartate Amino Transferase 11 U/L (5-31); Bilirubin Total 0.3 mg/dL (0.0-1.0); Blood Urea Nitrogen 10 mg/dL (9-16); C Reactive Protein 0.39 mg/dL (< or = 0.50); Calcium 9.3 mg/dL (8.4-10.2); Carbon Dioxide 23 mmol/L (22-29); Chloride 106 mmol/L (96-108); Estimated Glomerular Filt Rate > 60; Glucose Random 90 mg/dL (60-115); Magnesium 2.1 mg/dL (1.6-2.6); Sodium 139 mmol/L (135-145); Total Protein 6.3 g/dL (6.5-8.0)
--- NOTE | 2023-06-29 13:42 | MHC.EDTECH ---
Brought patient a warm blanket.
[2023-06-29 14:00] VITALS: BP 107/72; PULSE 66; RESP 16; TEMP 36.7; O2SAT 99
[2023-06-29] MEDS: ondansetron HCL 4 MG/2 ML VIAL IVPUSH (14:00)
[2023-06-29] MEDS: Ketorolac Tromethamine 15 MG/ML VIAL IVPUSH (14:01)
[2023-06-29] MEDS: diphenhydrAMINE HCL 50 MG/ML VIAL 25 MG IVPUSH (14:01)
[2023-06-29 14:08] LABS: Erythrocyte Sedimentation Rate 1 MM/HR (0-20)
[2023-06-29 15:08] LABS: HCG Quantitative < 2 mIU/mL
[2023-06-29 16:00] VITALS: BP 107/78; PULSE 75; RESP 16; TEMP 36.9; O2SAT 100
== END 2023-06-29 16:44 | disposition home or self-care (01) ==
PROVIDERS: Physician Assistant; Emergency Provider Student in an Organized Health Care Education/Training Program
DX: G43.909 Migraine, unspecified, not intractable, without status migrainosus (principal)
CPT/HCPCS: 36415; 70450; 80053; 82550; 83735; 84702; 85025; 85652; 86140; 96374; 96375; 99284; 99285; J1200; J1885; J2405

== ENCOUNTER 2023-11-08 15:48 | Emergency (ER) | payer OTHER, SELFPAY ==
[2023-11-08 16:38] VITALS: BP 115/77; PULSE 75; RESP 18; TEMP 36.3; O2SAT 98; BMI 23.9
[2023-11-08 17:05] LABS: MANUAL DIFF FLAG NO
[2023-11-08 17:07] LABS: Basophils Percent Auto 0.5 % (0-2); Eosinophils Absolute Auto 0.2 X10*3/uL (0.0-0.4); Eosinophils Percent Auto 1.9 % (0-4); Hematocrit 43.8 % (37.0-47.0); Hemoglobin 14.6 g/dl (12.0-16.0); Imm Gran Abs Auto 0.02 X10*3/uL (0.00-0.03); Imm Gran Pct Auto 0.3 % (0.0-0.4); Lymphocytes Absolute Auto 1.9 X10*3/uL (1.2-4.9); Lymphocytes Percent Auto 24.3 % (20-40); Mean Corpuscular HGB Conc 33.3 g/dl (31.0-35.0); Mean Corpuscular Hemoglobin 29.6 pg (27.0-33.0); Mean Corpuscular Volume 88.8 fL (80.0-98.0); Mean Platelet Volume 11.2 fL (9.4-12.3); Monocytes Absolute Auto 0.8 X10*3/uL (0.1-1.2); Monocytes Percent Auto 10.4 % (2-11); Neutrophils Percent Auto 62.6 % (45-73); Platelet Count 278 X10*3/uL (160-400); Red Blood Count 4.93 X10*6/uL (4.20-5.50); Red Cell Distribution Width 12.7 % (11.0-16.0); White Blood Count 7.9 X10*3/uL (4.8-10.8)
[2023-11-08 17:27] LABS: Alanine Aminotransferase 11 U/L (0-31); Alkaline Phosphatase 86 U/L (39-117); Anion Gap 11 (12-20); Aspartate Amino Transferase 11 U/L (5-31); Bilirubin Total 0.4 mg/dL (0.0-1.0); Blood Urea Nitrogen 10 mg/dL (9-16); COVID-19 Test Negative (Negative); Calcium 9.5 mg/dL (8.4-10.2); Carbon Dioxide 26 mmol/L (22-29); Chloride 109 mmol/L (96-108); Creatinine Clr Calc Pharmacy 88.2; Estimated Glomerular Filt Rate > 60; Glucose Random 90 mg/dL (60-115); IDNOW Serial# 08D9AD1C; Potassium 4.3 mmol/L (3.3-5.1); Sodium 142 mmol/L (135-145); Total Protein 6.5 g/dL (6.5-8.0)
--- NOTE | 2023-11-08 17:44 | ED_ITS ---
HPI - General Adult General Chief complaint: Anxiety Stated complaint: anxiety, depression Time Seen by Provider: 11/08/23 17:44 Source: patient and family (patient's fiance) Mode of arrival: ambulatory Limitations: no limitations History of Present Illness HPI narrative: Patient is a 33 year old assigned female at with a history of TRISTIAN and MDD presenting to the emergency department today with increased depression and anxiety. Patient states that she has a lot of life stressors presently and is feeling very overwhelmed, depressed, and anxious. Patient states that she is stressed and is not sure if she should come inpatient or not. Patient states that she is not suicidal or homicidal. Patient states that she is the primary bread winner at home and is her fiances primary source of support emotionally and financially. Patient denies any dizziness, lightheadedness, abdominal pain, nausea, vomiting, fever, chills, blurry vision, double vision, loss of vision, chest pain, difficulty breathing, shortness of breath, back pain, night sweats, pain with urination, increased urinary frequency, increased urinary urgency, blood in her urine or stool, syncope or a near syncopal episode, recent trauma or falls, bowel incontinence, bladder incontinence, bowel retention, bladder retention, or any other complaints at this time. Relieving factors: none Exacerbating factors: none Associated symptoms: denies other symptoms Treatments prior to arrival: none Related Data Home Medications Medication Instructions Recorded Confirmed norethindrone 1 mg-ethinyl 1 tab PO DAILY 09/22/21 08/09/22 estradiol 35 mcg tablet (Alyacen) albuterol sulfate 90 mcg/actuation 2 puff inhalation Q4H PRN wheezing 08/09/22 08/09/22 aerosol inhaler (ProAir HFA) Previous Rx's Medication Instructions Recorded butalbital 50 mg-acetaminophen 300 1 cap PO Q4H PRN headache #14 caps 03/22/21 mg-caffeine 40 mg-codeine 30 mg cap (Fioricet with Codeine) aluminum-mag hydroxide-simethicone 5 ml PO 5XD PRN dyspepsia #30 mL 09/21/21 200 mg-200 mg-20 mg/5 mL oral susp (Maalox Advanced) dicyclomine 20 mg tablet 20 mg PO QID PRN Abdominal 09/21/21 cramping #20 tabs famotidine 20 mg tablet (Pepcid) 20 mg PO DAILY #14 tabs 09/21/21 ondansetron HCl 4 mg tablet 4 mg PO Q8H PRN nausea and 09/21/21 (Zofran) vomiting #10 tabs azithromycin 500 mg tablet 500 mg PO DAILY 3 days #3 tabs 11/10/21 (Zithromax TRI-ANGELA) codeine 10 mg-guaifenesin 100 mg/5 10 ml PO Q6H PRN cough #237 mL 11/10/21 mL oral liquid prednisone 20 mg tablet 20 mg PO DAILY 5 days #5 tabs 07/23/22 topiramate 50 mg tablet 50 mg PO .QHS 30 days #30 tabs 08/03/22 escitalopram oxalate 10 mg tablet 10 mg PO DAILY #30 tabs 09/18/22 (Lexapro) quetiapine 25 mg tablet (Seroquel) 25 mg PO TID #45 tabs 09/18/22 cyclobenzaprine 10 mg tablet 10 mg PO Q8H #14 tabs 11/21/22 ibuprofen 800 mg tablet 800 mg PO Q8H PRN pain #14 tabs 11/21/22 ondansetron HCl 4 mg tablet 4 mg PO Q8H #14 tabs 11/21/22 lorazepam 1 mg tablet (Ativan) 1 mg PO BID PRN anxiety #6 tabs 05/26/23 diphenhydramine HCl 25 mg capsule 25 mg PO TID PRN allergic reaction 06/29/23 (Benadryl) #20 caps ketorolac 10 mg tablet 10 mg PO TID PRN pain 5 days #15 06/29/23 tabs Allergies Allergy/AdvReac Type Severity Reaction Status Date / Time amoxicillin [AMOXICILLIN] Allergy Unknown HIVES Verified 11/08/23 16:37 Penicillins Allergy Rash Verified 11/08/23 16:37 Review of Systems 2 Constitutional: Constitutional: Reports no additional constitutional complaints, Denies chills, Denies fever(s) and Denies night sweats Eyes: Eyes: Reports no additional eye complaints, Denies blurry vision, Denies change in vision, Denies diplopia, Denies eye discharge, Denies loss of vision and Denies eye pain ENT: Denies dizziness Cardiovascular: Cardiovascular: Reports no additional cardiovascular complaints, Denies chest pain, Denies lightheadedness, Denies Loss of Consciousness and Denies dyspnea Respiratory: Respiratory: Reports no additional respiratory complaints and Denies dyspnea Gastrointestinal: Gastrointestinal: Reports no additional gastrointestinal complaints, Denies abdominal pain, Denies melena, Denies hematochezia, Denies change in bowel habits and Denies change in stool character Genitourinary: Genitourinary: Denies hematuria, Denies urinary frequency, Denies dysuria, Denies urinary incontinence, Denies urinary hesitancy and Denies urinary urgency Musculoskeletal: Musculoskeletal: Reports no additional musculoskeletal complaints, Denies numbness and Denies tingling Neurologic: Denies dizziness, Denies loss of vision, Denies numbness and Denies tingling Psychiatric: Psychiatric: Reports anxiety, Reports depression, Denies homicidal ideation and Denies suicidal ideation Endocrine: Endocrine: Reports no additional endocrine complaints Hematologic/Lymphatic: Hematologic/Lymphatic: Reports no additional hematologic/lymphatic complaints Allergic/Immunologic: Allergic/Immunologic: Reports no additional allergic/immunologic complaints PMFSH Past Medical History Attestation statement: The following information was validated with the patient. Source: old records reviewed and nursing notes reviewed Medical History Epilepsy Social History Social History Alcohol intake: never Patient Tobacco Use Status: Never used Tobacco Advance Directives: No Advance Directives Information Provided: No Physical Exam ED Vital Signs: Vital Signs - 24 hr 11/08/23 16:38 Temperature 97.4 F Pulse Rate 75 Respiratory Rate 18 Blood Pressure 115/77 Pulse Oximetry 98 Oxygen Delivery Method Room Air BMI result Body Mass Index 23.9 Const General: cooperative, no acute distress, alert and awake Nutritional Appearance: well nourished Orientation/consciousness: patient oriented x3 Limitations: no limitations [facility] Head: Yes normal to inspection and Yes atraumatic Ears: hearing grossly normal bilaterally and external ears normal General nose exam: Normal external nose present, no nasal discharge noted and no epistaxis Face and sinus: Yes normal facial exam, No abrasion and No laceration Mouth: Normal oral and palatal mucosa present, no drooling and no muffled voice Eyes General: appearance normal, both eyes and all related structures Periorbital: periorbital findings normal Eyelids: Yes eyelids normal Conjunctivae: conjunctivae normal Pupils: Equal, round and reactive pupils present EOM: EOMs intact bilaterally Neck Neck: Yes normal visual inspection, Yes full ROM and Yes no lymphadenopathy Chest Chest palpation & inspection: normal inspection of the chest Resp Effort & Inspection: normal respiratory effort and able to speak in complete sentences Auscultation: clear to auscultation bilaterally Cardio Rate: regular rate Rhythm: regular rhythm GI Inspection: Yes normal to inspection Neuro General: patient oriented x3 and moves all extremities Cranial nerves: Yes Equal, round and reactive pupils present Cognition (Neuro): normal cognition Motor exam (neuro): 5/5 motor strength present throughout Sensory Exam: Normal double simultaneous stimulation for sensation Coordination: [id number] test normal Extrem General: Yes normal to inspection, Yes full ROM and Yes capillary refill normal Psych Appearance: grossly normal Mental Status: mental status grossly normal Affect: Sad affect present Attitude: cooperative Thought process: Normal thought process present Thought content: Normal thought content present Medical Decision Making Medical Decision Making MDM Narrative: Patient is a 33 year old assigned female at with a history of TRISTIAN and MDD presenting to the emergency department today with worsening depression. Patient's physical exam showed a tearful/anxious individual. Patient's blood work was unremarkable. I explained my physical exam findings as well as all test results to the patient. I answered all questions asked by the patient. CARE team briefly met with the patient to review options and the patient was not sure what treatment option would best suit her. I discussed this with CARE team and I discussed these options with the patient. Patient stated that she wanted more time to think about it and wanted to review things with her fiance. Patient has reviewed things with her fiance and now wants to go home to think about her options more. Patient denies any suicidal or homicidal ideations. CARE team provided patient resources for outpatient support. Differential Diagnosis Differential Diagnoses: The differential diagnosis associated with the presentation includes Depression Anxiety Admission/Observation Consideration of admission/observation: Escalation of care including admission/observation considered I recommended patient be admitted for inpatient psychiatric care however, the patient declined and being she isn't suicidal or homicidal, I am unable to keep her here on a section 12. Consult Healthcare Provider Management of the patient was discussed with: [employer] (spoke with CARE team as noted in the MDM Rationale portion of this note.) Lab Data [facility] Lab Attestation statement: I reviewed the patient's lab results. My interpretation of these studies and their corresponding values is that they are grossly normal. 11/08/23 16:51 11/08/23 16:51 Labs: Lab Results 11/08/23 Range/Units 16:51 WBC 7.9 (4.8-10.8) X10*3/uL RBC 4.93 (4.20-5.50) X10*6/uL Hgb 14.6 (12.0-16.0) g/dl Hct 43.8 (37.0-47.0) % MCV 88.8 (80.0-98.0) fL MCH 29.6 (27.0-33.0) pg MCHC 33.3 (31.0-35.0) g/dl RDW 12.7 (11.0-16.0) % Plt Count 278 (160-400) X10*3/uL MPV 11.2 (9.4-12.3) fL Immature Gran % (Auto) 0.3 (0.0-0.4) % Neut % (Auto) 62.6 (45-73) % Lymph % (Auto) 24.3 (20-40) % [place] % (Auto) 10.4 (2-11) % Eos % (Auto) 1.9 (0-4) % Baso % (Auto) 0.5 (0-2) % Lymph # (Auto) 1.9 (1.2-4.9) X10*3/uL [place] # (Auto) 0.8 (0.1-1.2) X10*3/uL Eos # (Auto) 0.2 (0.0-0.4) X10*3/uL Baso # (Auto) 0.0 (0.0-0.2) X10*3/uL Abs Immat Gran (auto) 0.02 (0.00-0.03) X10*3/uL Absolute Neuts (auto) 5.0 (2.0-8.3) x10*3/uL Absolute Nucleated RBC 0.000 (0.0-0.012) X10*3/uL Nucleated RBC % (auto) 0.0 (0.0-0.2) /100WBC Sodium 142 (135-145) mmol/L Potassium 4.3 (3.3-5.1) mmol/L Chloride 109 H (96-108) mmol/L Carbon Dioxide 26 (22-29) mmol/L Anion Gap 11 L (12-20) BUN 10 (9-16) mg/dL Creatinine 0.71 (0.5-1.4) mg/dL Estim Creat Clear Calc 88.2 Estimated GFR > 60 Random Glucose 90 (60-115) mg/dL Calcium 9.5 (8.4-10.2) mg/dL Total Bilirubin 0.4 (0.0-1.0) mg/dL AST 11 (5-31) U/L ALT 11 (0-31) U/L Alkaline Phosphatase 86 (39-117) U/L Total Protein 6.5 (6.5-8.0) g/dL Albumin 4.0 (3.5-5.0) g/dL COVID-19 ([facility]) Negative (Negative) COVID-19 Clin Com See Note Discharge Plan Discharge Clinical Impression: MDD (major depressive disorder), recurrent episode, moderate, TRISTIAN (generalized anxiety disorder) Patient Disposition: Home, Self-Care Instructions: Depression (DC), Anxiety (ED) Additional Instructions: [facility]: [address] [place] [address] Walk in hours from 10am - 12pm Open from 10am - 12pm [facility] Crisis Services: [address] [place] [address] Walk in hours from 10am - 12pm Open 24/06 [facility]: [address] [place] [id number] [address] [place] [id number] Hours: M-F 8am to 8pm Saturday and Saturday 9am to 5pm Prescriptions: No Action [id number] [Fioricet with Codeine] [id number] mg capsule 1 cap PO Q4H PRN (Reason: headache) Qty: 14 0RF dicyclomine 20 mg tablet 20 mg PO QID PRN (Reason: Abdominal cramping) Qty: 20 0RF ondansetron HCl [Zofran] 4 mg tablet 4 mg PO Q8H PRN (Reason: nausea and vomiting) Qty: 10 0RF alum-mag hydroxide-simeth [Maalox Advanced] 200-200-20 mg/5 mL suspension 5 ml PO 5XD PRN (Reason: dyspepsia) Qty: 30 0RF Rx Instructions: administer between meals and at bedtime famotidine [Pepcid] 20 mg tablet 20 mg PO DAILY Qty: 14 0RF escitalopram oxalate [Lexapro] 10 mg tablet 10 mg PO DAILY Qty: 30 0RF quetiapine [Seroquel] 25 mg tablet 25 mg PO TID Qty: 45 0RF ondansetron HCl 4 mg tablet 4 mg PO Q8H Qty: 14 0RF ibuprofen 800 mg tablet 800 mg PO Q8H PRN (Reason: pain) Qty: 14 0RF cyclobenzaprine 10 mg tablet 10 mg PO Q8H Qty: 14 0RF Alyacen 135 (28) 1-35 mg-mcg tablet 1 tab PO DAILY azithromycin [Zithromax TRI-ANGELA] 500 mg tablet 500 mg PO DAILY 3 Days Qty: 3 0RF codeine-guaifenesin 10-100 mg/5 mL liquid 10 ml PO Q6H PRN (Reason: cough) Qty: 237 0RF topiramate 50 mg tablet 50 mg PO .QHS 30 Days Qty: 30 0RF ketorolac 10 mg tablet 10 mg PO TID PRN (Reason: pain) 5 Days Qty: 15 0RF diphenhydramine HCl [Benadryl] 25 mg capsule 25 mg PO TID PRN (Reason: allergic reaction) Qty: 20 0RF lorazepam [Ativan] 1 mg tablet 1 mg PO BID PRN (Reason: anxiety) Qty: 6 0RF prednisone 20 mg tablet 20 mg PO DAILY 5 Days Qty: 5 0RF albuterol sulfate [ProAir HFA] 90 mcg/actuation HFA aerosol inhaler 2 puff inhalation Q4H PRN (Reason: wheezing) Referrals: [facility] Family Medicine [Provider Group] (Call to establish and follow up with a primary care provider. If you already have a primary care provider, please follow up with them.) [facility] [place] Primary CareDust[facility] [Provider Group] (Call to establish and follow up with a primary care provider. If you already have a primary care provider, please follow up with them.) [facility] [place] Primary Care[facility]ge[facility] [Provider Group] (Call to establish and follow up with a primary care provider. If you already have a primary care provider, please follow up with them.) Print Language: Hungarian
--- NOTE | 2023-11-08 18:50 | MHC.CARE ---
Pt was referred to CARE team for consult, she is seeking PCP as well as outpatient therapists and medication prescriber. She reports her health insurance has changed multiple times and it has made it difficult for her to obtain providers in the community. Pt currently has M and is seeking medication for anxiety and depression, pt was informed theses medications are not prescribed from ED unfortunately,,however clinician offered to make referrals to community providers on her behalf. Multiple levels of care were discussed including PHP, ACCS and inpatient level of care. Pt requested to go home and think about options discussed, she was given patient resources book as well as walk in hours for [facility].
== END 2023-11-08 18:58 | disposition home or self-care (01) ==
PROVIDERS: Emergency Provider Emergency Medicine
DX: F33.1 Major depressive disorder, recurrent, moderate (principal); F41.1 Generalized anxiety disorder; F43.0 Acute stress reaction; Z11.52 Encounter for screening for COVID-19; Z20.822 Contact with and (suspected) exposure to COVID-19
CPT/HCPCS: 36415; 80053; 85025; 87635; 99282; 99283

== ENCOUNTER 2024-01-14 16:30 | Emergency (ER) | payer OTHER, SELFPAY ==
--- NOTE | ~2024-01-14 | CT_ITS ---
EXAMINATION: CT head/brain wo IV con CLINICAL INFORMATION: Reason for Exam Headaches, dizziness COMPARISON: CT head without contrast 05/27/2023 TECHNIQUE: Contiguous axial imaging was performed from the skull base to vertex without intravenous contrast. Sagittal and coronal reformatted images were obtained. This CT examination was performed using dose optimization techniques as appropriate, variously including the following: * Automated exposure control * Adjustment of mA and/or kV according to patient size (this includes techniques or standardized protocols for targeted exams where dose is matched to indication/reason for exam; i.e. extremities or head) Use of iterative reconstruction technique DLP: 587 mGy-cm FINDINGS: No acute osseous or soft tissue abnormality. The mastoid air cells and visualized portions of the paranasal sinuses are well aerated. There is no evidence of acute intracranial hemorrhage or territorial infarction. No abnormal mass effect or midline shift is seen. Rose to white matter differentiation is well preserved. No extra-axial fluid collections are identified. No hydrocephalus. No significant volume loss. There is no abnormal attenuation within the brain parenchyma. CT/CT head/brain wo IV con IMPRESSION: No acute intracranial abnormality including hemorrhage, mass effect, hydrocephalus, or acute territorial edematous infarction.
[2024-01-14 16:34] VITALS: BP 128/89; PULSE 82; RESP 18; TEMP 36.7; O2SAT 97; BMI 24.6
--- NOTE | 2024-01-14 18:09 | ED_ITS ---
HPI - General Adult General Chief complaint: Headache Stated complaint: headache pain neck and shoulder Related Data Home Medications Medication Instructions Recorded Confirmed norethindrone 1 mg-ethinyl 1 tab PO DAILY 09/22/21 08/09/22 estradiol 35 mcg tablet (Alyacen) albuterol sulfate 90 mcg/actuation 2 puff inhalation Q4H PRN wheezing 08/09/22 08/09/22 aerosol inhaler (ProAir HFA) Previous Rx's Medication Instructions Recorded butalbital 50 mg-acetaminophen 300 1 cap PO Q4H PRN headache #14 caps 03/22/21 mg-caffeine 40 mg-codeine 30 mg cap (Fioricet with Codeine) aluminum-mag hydroxide-simethicone 5 ml PO 5XD PRN dyspepsia #30 mL 09/21/21 200 mg-200 mg-20 mg/5 mL oral susp (Maalox Advanced) dicyclomine 20 mg tablet 20 mg PO QID PRN Abdominal 09/21/21 cramping #20 tabs famotidine 20 mg tablet (Pepcid) 20 mg PO DAILY #14 tabs 09/21/21 ondansetron HCl 4 mg tablet 4 mg PO Q8H PRN nausea and 09/21/21 (Zofran) vomiting #10 tabs azithromycin 500 mg tablet 500 mg PO DAILY 3 days #3 tabs 11/10/21 (Zithromax TRI-ANGELA) codeine 10 mg-guaifenesin 100 mg/5 10 ml PO Q6H PRN cough #237 mL 11/10/21 mL oral liquid prednisone 20 mg tablet 20 mg PO DAILY 5 days #5 tabs 07/23/22 topiramate 50 mg tablet 50 mg PO .QHS 30 days #30 tabs 08/03/22 escitalopram oxalate 10 mg tablet 10 mg PO DAILY #30 tabs 09/18/22 (Lexapro) quetiapine 25 mg tablet (Seroquel) 25 mg PO TID #45 tabs 09/18/22 cyclobenzaprine 10 mg tablet 10 mg PO Q8H #14 tabs 11/21/22 ibuprofen 800 mg tablet 800 mg PO Q8H PRN pain #14 tabs 11/21/22 ondansetron HCl 4 mg tablet 4 mg PO Q8H #14 tabs 11/21/22 lorazepam 1 mg tablet (Ativan) 1 mg PO BID PRN anxiety #6 tabs 05/26/23 diphenhydramine HCl 25 mg capsule 25 mg PO TID PRN allergic reaction 06/29/23 (Benadryl) #20 caps ketorolac 10 mg tablet 10 mg PO TID PRN pain 5 days #15 06/29/23 tabs Allergies Allergy/AdvReac Type Severity Reaction Status Date / Time amoxicillin [AMOXICILLIN] Allergy Unknown HIVES Verified 01/14/24 16:38 Penicillins Allergy Rash Verified 01/14/24 16:38 [facility] Past Medical History Medical History Epilepsy Social History Social History Alcohol intake: never Patient Tobacco Use Status: Never used Tobacco Physical Exam ED Vital Signs: Vital Signs - 24 hr 01/14/24 16:34 Temperature 98.1 F Pulse Rate 82 Respiratory Rate 18 Blood Pressure 128/89 Pulse Oximetry 97 Oxygen Delivery Method Room Air BMI result Body Mass Index 24.6 Course Course Course Narrative: Patient complains of headaches and dizziness, as well as feels she may have been having seizures but is not sure Labs and head CT and EKG are ordered This rapid medical exam done in triage pending full emergency room evaluation and disposition by ER provider Discharge Plan Discharge Prescriptions: No Action [id number] [Fioricet with Codeine] [id number] mg capsule 1 cap PO Q4H PRN (Reason: headache) Qty: 14 0RF dicyclomine 20 mg tablet 20 mg PO QID PRN (Reason: Abdominal cramping) Qty: 20 0RF ondansetron HCl [Zofran] 4 mg tablet 4 mg PO Q8H PRN (Reason: nausea and vomiting) Qty: 10 0RF alum-mag hydroxide-simeth [Maalox Advanced] 200-200-20 mg/5 mL suspension 5 ml PO 5XD PRN (Reason: dyspepsia) Qty: 30 0RF Rx Instructions: administer between meals and at bedtime famotidine [Pepcid] 20 mg tablet 20 mg PO DAILY Qty: 14 0RF escitalopram oxalate [Lexapro] 10 mg tablet 10 mg PO DAILY Qty: 30 0RF quetiapine [Seroquel] 25 mg tablet 25 mg PO TID Qty: 45 0RF ondansetron HCl 4 mg tablet 4 mg PO Q8H Qty: 14 0RF ibuprofen 800 mg tablet 800 mg PO Q8H PRN (Reason: pain) Qty: 14 0RF cyclobenzaprine 10 mg tablet 10 mg PO Q8H Qty: 14 0RF Alyacen 1/35 (28) 1-35 mg-mcg tablet 1 tab PO DAILY azithromycin [Zithromax TRI-ANGELA] 500 mg tablet 500 mg PO DAILY 3 Days Qty: 3 0RF codeine-guaifenesin 10-100 mg/5 mL liquid 10 ml PO Q6H PRN (Reason: cough) Qty: 237 0RF topiramate 50 mg tablet 50 mg PO .QHS 30 Days Qty: 30 0RF ketorolac 10 mg tablet 10 mg PO TID PRN (Reason: pain) 5 Days Qty: 15 0RF diphenhydramine HCl [Benadryl] 25 mg capsule 25 mg PO TID PRN (Reason: allergic reaction) Qty: 20 0RF lorazepam [Ativan] 1 mg tablet 1 mg PO BID PRN (Reason: anxiety) Qty: 6 0RF prednisone 20 mg tablet 20 mg PO DAILY 5 Days Qty: 5 0RF albuterol sulfate [ProAir HFA] 90 mcg/actuation HFA aerosol inhaler 2 puff inhalation Q4H PRN (Reason: wheezing)
--- NOTE | 2024-01-14 18:10 | ECG_ITS ---
Test Reason : DIZZY Blood Pressure : / mmHG Vent. Rate : 072 BPM Atrial Rate : 072 BPM P-R Int : 112 ms QRS Dur : 084 ms QT Int : 380 ms P-R-T Axes : 067 036 038 degrees QTc Int : 416 ms Normal sinus rhythm Normal ECG When compared with ECG of 21-NOV-2022 09:26, Vent. rate has decreased BY 51 BPM Referred By: Kt Chambers Electronically Signed By:Nain Light
[2024-01-14 18:32] LABS: MANUAL DIFF FLAG NO
[2024-01-14 18:34] LABS: Basophils Absolute Auto 0.1 X10*3/uL (0.0-0.2); Basophils Percent Auto 0.6 % (0-2); Eosinophils Absolute Auto 0.2 X10*3/uL (0.0-0.4); Eosinophils Percent Auto 2.1 % (0-4); Hematocrit 43.1 % (37.0-47.0); Hemoglobin 14.7 g/dl (12.0-16.0); Imm Gran Abs Auto 0.02 X10*3/uL (0.00-0.03); Imm Gran Pct Auto 0.2 % (0.0-0.4); Lymphocytes Absolute Auto 2.7 X10*3/uL (1.2-4.9); Lymphocytes Percent Auto 24.4 % (20-40); Mean Corpuscular HGB Conc 34.1 g/dl (31.0-35.0); Mean Corpuscular Hemoglobin 29.8 pg (27.0-33.0); Mean Corpuscular Volume 87.4 fL (80.0-98.0); Mean Platelet Volume 10.8 fL (9.4-12.3); Monocytes Absolute Auto 0.9 X10*3/uL (0.1-1.2); Monocytes Percent Auto 8.3 % (2-11); Neutrophils Absolute Auto 7.2 x10*3/uL (2.0-8.3); Neutrophils Percent Auto 64.4 % (45-73); Platelet Count 299 X10*3/uL (160-400); Red Blood Count 4.93 X10*6/uL (4.20-5.50); Red Cell Distribution Width 12.4 % (11.0-16.0); White Blood Count 11.2 X10*3/uL (4.8-10.8)
[2024-01-14 18:46] LABS: Anion Gap 11 (12-20); Blood Urea Nitrogen 11 mg/dL (9-16); Calcium 9.2 mg/dL (8.4-10.2); Carbon Dioxide 25 mmol/L (22-29); Chloride 110 mmol/L (96-108); Creatinine Clr Calc Pharmacy 94.8; Estimated Glomerular Filt Rate > 60; Glucose Random 87 mg/dL (60-115); Sodium 142 mmol/L (135-145)
== END 2024-01-14 20:54 | disposition left against medical advice (07) ==
PROVIDERS: Physician Assistant Medical; Emergency Provider Emergency Medicine
DX: R51.9 Headache, unspecified (principal); R42 Dizziness and giddiness; M54.2 Cervicalgia; Z79.899 Other long term (current) drug therapy
CPT/HCPCS: 36415; 70450; 80048; 85025; 93005; 99283; 99284

== ENCOUNTER → 2024-01-14 18:10 | Outpatient (BNV) | payer OTHER, SELFPAY | PROVIDERS: Emergency Provider Emergency Medicine; Visit Provider Internal Medicine Cardiovascular Disease | DX: R42 Dizziness and giddiness (principal) | CPT/HCPCS: 93010 ==

== ENCOUNTER 2024-02-17 16:55 | Emergency (ER) | payer OTHER, SELFPAY ==
--- NOTE | ~2024-02-17 | CT_ITS ---
EXAMINATION: CT ABDOMEN AND PELVIS WITHOUT CONTRAST CLINICAL INFORMATION: Left abdominal pain. COMPARISON: 11/21/2022 TECHNIQUE: Multidetector volumetric imaging was performed from the superior aspect of the liver through the pubic symphysis. Sagittal and coronal reformatted images were obtained on the technologist's workstation. This CT examination was performed using dose optimization techniques as appropriate, variously including the following: *Automated exposure control *Adjustment of mA and/or kV according to patient size (this includes techniques or standardized protocols for targeted exams where dose is matched to indication/reason for exam; i.e. extremities or head) *Use of iterative reconstruction technique DLP: 418 mGy-cm FINDINGS: LUNG BASES: There is mild scarring anterior lung bases. LIVER, GALLBLADDER, AND BILIARY TREE: The liver is normal in size, shape, and attenuation. No focal hepatic lesion or biliary ductal dilatation is present. The gallbladder is unremarkable with no evidence of radiopaque gallstones, gallbladder wall thickening, or obvious pericholecystic inflammatory changes. PANCREAS: Unremarkable. SPLEEN: Unremarkable. ADRENAL GLANDS: Unremarkable. KIDNEYS AND URETERS: The kidneys are normal in size, shape, and attenuation. No hydronephrosis, hydroureter, or calculi seen. No perinephric stranding. There is a 1 cm hypodensity mid to upper pole left kidney likely a small cyst. BLADDER: Unremarkable. GASTROINTESTINAL TRACT: The small and large bowel are unremarkable. The appendix is unremarkable. ABDOMINAL WALL: No significant hernia is appreciated. LYMPH NODES: Normal. VASCULAR: Unremarkable. PELVIC VISCERA: Unremarkable. OSSEOUS STRUCTURES: Unremarkable. CT/CT abdomen pelvis wo IV con IMPRESSION: No acute intra-abdominal process seen. Fleischner guidelines were followed.
[2024-02-17 17:12] VITALS: BP 104/75; PULSE 72; RESP 18; TEMP 36.3; O2SAT 96; BMI 23.2
--- NOTE | 2024-02-17 17:25 | ED_ITS ---
HPI - General Adult General Chief complaint: Abdominal Pain Stated complaint: left lower abd pain came from urgent care Time Seen by Provider: 02/18/24 00:59 Source: patient Mode of arrival: ambulatory Limitations: no limitations History of Present Illness HPI narrative: Patient strong history of kidney stones in the family but patient never had comes here for pain in the left lower abdomen for last 2 days came from sudden pain left lower abdomen no dysuria no frequency no hematuria patient's Lexapro has chronic diarrhea likely IBS no vomiting no nausea no fever Related Data Home Medications Medication Instructions Recorded Confirmed norethindrone 1 mg-ethinyl 1 tab PO DAILY 09/22/21 08/09/22 estradiol 35 mcg tablet (Alyacen) albuterol sulfate 90 mcg/actuation 2 puff inhalation Q4H PRN wheezing 08/09/22 08/09/22 aerosol inhaler (ProAir HFA) Previous Rx's Medication Instructions Recorded butalbital 50 mg-acetaminophen 300 1 cap PO Q4H PRN headache #14 caps 03/22/21 mg-caffeine 40 mg-codeine 30 mg cap (Fioricet with Codeine) aluminum-mag hydroxide-simethicone 5 ml PO 5XD PRN dyspepsia #30 mL 09/21/21 200 mg-200 mg-20 mg/5 mL oral susp (Maalox Advanced) dicyclomine 20 mg tablet 20 mg PO QID PRN Abdominal 09/21/21 cramping #20 tabs famotidine 20 mg tablet (Pepcid) 20 mg PO DAILY #14 tabs 09/21/21 ondansetron HCl 4 mg tablet 4 mg PO Q8H PRN nausea and 09/21/21 (Zofran) vomiting #10 tabs azithromycin 500 mg tablet 500 mg PO DAILY 3 days #3 tabs 11/10/21 (Zithromax TRI-ANGELA) codeine 10 mg-guaifenesin 100 mg/5 10 ml PO Q6H PRN cough #237 mL 11/10/21 mL oral liquid prednisone 20 mg tablet 20 mg PO DAILY 5 days #5 tabs 07/23/22 topiramate 50 mg tablet 50 mg PO .QHS 30 days #30 tabs 08/03/22 escitalopram oxalate 10 mg tablet 10 mg PO DAILY #30 tabs 09/18/22 (Lexapro) quetiapine 25 mg tablet (Seroquel) 25 mg PO TID #45 tabs 09/18/22 cyclobenzaprine 10 mg tablet 10 mg PO Q8H #14 tabs 11/21/22 ibuprofen 800 mg tablet 800 mg PO Q8H PRN pain #14 tabs 11/21/22 ondansetron HCl 4 mg tablet 4 mg PO Q8H #14 tabs 11/21/22 lorazepam 1 mg tablet (Ativan) 1 mg PO BID PRN anxiety #6 tabs 05/26/23 diphenhydramine HCl 25 mg capsule 25 mg PO TID PRN allergic reaction 06/29/23 (Benadryl) #20 caps ketorolac 10 mg tablet 10 mg PO TID PRN pain 5 days #15 06/29/23 tabs cefuroxime axetil 250 mg tablet 250 mg PO BID 7 days #14 tabs 02/18/24 dicyclomine 20 mg tablet 20 mg PO QID PRN abdominal pain 02/18/24 #20 tabs Allergies Allergy/AdvReac Type Severity Reaction Status Date / Time amoxicillin [AMOXICILLIN] Allergy Unknown HIVES Verified 02/17/24 17:12 Penicillins Allergy Rash Verified 02/17/24 17:12 Review of Systems 2 Review of Systems: Yes all other systems are reviewed and are negative [facility] Past Medical History Medical History Epilepsy Social History Social History Alcohol intake: never Patient Tobacco Use Status: Never used Tobacco Advance Directives: No Advance Directives Information Provided: No Physical Exam ED Vital Signs: Vital Signs - 24 hr 02/17/24 17:12 02/17/24 19:25 02/17/24 23:26 Temperature 97.4 F 97.8 F 97.9 F Pulse Rate 72 67 84 Respiratory Rate 18 18 17 Blood Pressure 104/75 98/61 Pulse Oximetry 96 99 100 Oxygen Delivery Method Room Air Room Air Room Air BMI result Body Mass Index 23.2 Appearance: Alert. Oriented X3. No acute distress. Eyes: No pallor or icterus ENT: Pharynx normal. Oral Mucosa moist Neck: Normal inspection. Neck supple. CVS: Normal heart rate and rhythm. Pulses normal. Respiratory: No respiratory distress. Equal air entry bilateral, Abdomen: Soft, deep tenderness left lower abdominal no rebound tenderness or guarding Bowel sounds are present, no mass palpable, no CVA tenderness Skin: Skin warm and dry. Normal skin color. Normal skin turgor. Extremities: No lower extremity edema. No calf tenderness Neuro: Oriented X 3. Course Course Course Narrative: RME performed by She Chase PA-C. Patient is a 33 year old assigned female at presenting to the emergency department with abdominal pain. Detailed physical exam and review of systems are deferred to the airport refueling handler. Labs and swabs ordered. Patient placed back in the waiting room pending room availability and results. Medications Administered Discontinued Medications Generic Name Dose Route Start Last Admin Trade Name Freq PRN Reason Stop Dose Admin Dicyclomine HCl 20 mg 02/18/24 01:15 02/18/24 01:47 Dicyclomine Hcl 10 Mg Capsule PO 02/18/24 01:16 20 mg ONCE ONE Administration Medical Decision Making Medical Decision Making [facility] Narrative: Patient with left lower abdominal pain likely diverticulitis/constipation /colitis/enteritis/kidney stone CT scan negative for kidney stone/any acute pathology, final report is pending, workup showed UTI will discharge patient home on Ceftin and dicyclomine IBS Differential Diagnosis Differential Diagnoses: The differential diagnosis associated with the presentation includes Colitis/enteritis/kidney stone/constipation/diverticulitis Lab Data [facility] Lab Attestation statement: I reviewed the patient's lab results. 02/17/24 19:27 02/17/24 19:27 Labs: Lab Results 02/17/24 02/18/24 Range/Units 19:27 01:18 WBC 12.2 H (4.8-10.8) X10*3/uL RBC 5.01 (4.20-5.50) X10*6/uL Hgb 15.1 (12.0-16.0) g/dl Hct 44.4 (37.0-47.0) % MCV 88.6 (80.0-98.0) fL MCH 30.1 (27.0-33.0) pg MCHC 34.0 (31.0-35.0) g/dl RDW 12.6 (11.0-16.0) % Plt Count 292 (160-400) X10*3/uL MPV 10.6 (9.4-12.3) fL Immature Gran % (Auto) 0.3 (0.0-0.4) % Neut % (Auto) 64.8 (45-73) % Lymph % (Auto) 24.6 (20-40) % [place] % (Auto) 7.8 (2-11) % Eos % (Auto) 2.0 (0-4) % Baso % (Auto) 0.5 (0-2) % Lymph # (Auto) 3.0 (1.2-4.9) X10*3/uL [place] # (Auto) 1.0 (0.1-1.2) X10*3/uL Eos # (Auto) 0.2 (0.0-0.4) X10*3/uL Baso # (Auto) 0.1 (0.0-0.2) X10*3/uL Abs Immat Gran (auto) 0.04 H (0.00-0.03) X10*3/uL Absolute Neuts (auto) 7.9 (2.0-8.3) x10*3/uL Absolute Nucleated RBC 0.000 (0.0-0.012) X10*3/uL Nucleated RBC % (auto) 0.0 (0.0-0.2) /100WBC Sodium 139 (135-145) mmol/L Potassium 4.0 (3.3-5.1) mmol/L Chloride 104 (96-108) mmol/L Carbon Dioxide 25 (22-29) mmol/L Anion Gap 14 (12-20) BUN 9 (9-16) mg/dL Creatinine 0.67 (0.5-1.4) mg/dL Estim Creat Clear Calc 93.5 Estimated GFR > 60 Random Glucose 84 (60-115) mg/dL Calcium 9.0 (8.4-10.2) mg/dL Magnesium 2.1 (1.6-2.6) mg/dL Total Bilirubin 0.4 (0.0-1.0) mg/dL AST 10 (5-31) U/L ALT 9 (0-31) U/L Alkaline Phosphatase 99 (39-117) U/L Total Protein 6.7 (6.5-8.0) g/dL Albumin 4.2 (3.5-5.0) g/dL Beta HCG, Quant < 2 mIU/mL Urine Color Yellow Urine Appearance Cloudy Urine pH 6.0 (5.0-9.0) Ur Specific [place] 1.020 (1.005-1.025) Urine Protein Negative (Neg-Trace) mg/dL Urine Glucose (UA) Negative (Negative) mg/dL Urine Ketones Negative (Negative) mg/dL Urine Blood Negative (Negative) Urine Nitrite Negative (Negative) Ur Leukocyte Esterase Moderate (2+) H (Negative) Urine RBC 0-2 (0-2) /HPF Urine WBC 6-10 (0-5) /HPF Ur Squamous Epith Cells 6-10 (0-2) /HPF Urine Bacteria 4+ (None Seen) Hyaline Casts 3-5 (0-2) /LPF Urine Yeast Present Influenza Type A (PCR) NEGATIVE (Negative) Influenza Type B (PCR) NEGATIVE (Negative) RSV RNA Qual (PCR) NEGATIVE (Negative) SARS-CoV-2 RNA (RT-PCR) NEGATIVE (Negative) Discharge Plan Discharge Clinical Impression: UTI (urinary tract infection), Irritable bowel syndrome Patient Disposition: Home, Self-Care Instructions: Irritable Bowel Syndrome (ED), Urinary Tract Infection in Women (ED) Additional Instructions: Drink plenty of fluid Antibiotic as prescribed Medication for abdominal pain as prescribed Follow-up with your PCP if not better Prescriptions: New cefuroxime axetil 250 mg tablet 250 mg PO BID 7 Days Qty: 14 0RF dicyclomine 20 mg tablet 20 mg PO QID PRN (Reason: abdominal pain) Qty: 20 0RF No Action [id number] [Fioricet with Codeine] 73-570-29-30 mg capsule 1 cap PO Q4H PRN (Reason: headache) Qty: 14 0RF dicyclomine 20 mg tablet 20 mg PO QID PRN (Reason: Abdominal cramping) Qty: 20 0RF ondansetron HCl [Zofran] 4 mg tablet 4 mg PO Q8H PRN (Reason: nausea and vomiting) Qty: 10 0RF alum-mag hydroxide-simeth [Maalox Advanced] 200-200-20 mg/5 mL suspension 5 ml PO 5XD PRN (Reason: dyspepsia) Qty: 30 0RF Rx Instructions: administer between meals and at bedtime famotidine [Pepcid] 20 mg tablet 20 mg PO DAILY Qty: 14 0RF escitalopram oxalate [Lexapro] 10 mg tablet 10 mg PO DAILY Qty: 30 0RF quetiapine [Seroquel] 25 mg tablet 25 mg PO TID Qty: 45 0RF ondansetron HCl 4 mg tablet 4 mg PO Q8H Qty: 14 0RF ibuprofen 800 mg tablet 800 mg PO Q8H PRN (Reason: pain) Qty: 14 0RF cyclobenzaprine 10 mg tablet 10 mg PO Q8H Qty: 14 0RF Alyacen 35 (28) 1-35 mg-mcg tablet 1 tab PO DAILY azithromycin [Zithromax TRI-ANGELA] 500 mg tablet 500 mg PO DAILY 3 Days Qty: 3 0RF codeine-guaifenesin 10-100 mg/5 mL liquid 10 ml PO Q6H PRN (Reason: cough) Qty: 237 0RF topiramate 50 mg tablet 50 mg PO .QHS 30 Days Qty: 30 0RF ketorolac 10 mg tablet 10 mg PO TID PRN (Reason: pain) 5 Days Qty: 15 0RF diphenhydramine HCl [Benadryl] 25 mg capsule 25 mg PO TID PRN (Reason: allergic reaction) Qty: 20 0RF lorazepam [Ativan] 1 mg tablet 1 mg PO BID PRN (Reason: anxiety) Qty: 6 0RF prednisone 20 mg tablet 20 mg PO DAILY 5 Days Qty: 5 0RF albuterol sulfate [ProAir HFA] 90 mcg/actuation HFA aerosol inhaler 2 puff inhalation Q4H PRN (Reason: wheezing) Stand Alone Forms: Work/School Release
[2024-02-17 19:25] VITALS: PULSE 67; RESP 18; TEMP 36.6; O2SAT 99
[2024-02-17 19:33] LABS: MANUAL DIFF FLAG NO
[2024-02-17 19:35] LABS: Basophils Absolute Auto 0.1 X10*3/uL (0.0-0.2); Basophils Percent Auto 0.5 % (0-2); Eosinophils Absolute Auto 0.2 X10*3/uL (0.0-0.4); Hematocrit 44.4 % (37.0-47.0); Hemoglobin 15.1 g/dl (12.0-16.0); Imm Gran Abs Auto 0.04 X10*3/uL (0.00-0.03); Imm Gran Pct Auto 0.3 % (0.0-0.4); Lymphocytes Percent Auto 24.6 % (20-40); Mean Corpuscular Hemoglobin 30.1 pg (27.0-33.0); Mean Corpuscular Volume 88.6 fL (80.0-98.0); Mean Platelet Volume 10.6 fL (9.4-12.3); Monocytes Percent Auto 7.8 % (2-11); Neutrophils Absolute Auto 7.9 x10*3/uL (2.0-8.3); Neutrophils Percent Auto 64.8 % (45-73); Platelet Count 292 X10*3/uL (160-400); Red Blood Count 5.01 X10*6/uL (4.20-5.50); Red Cell Distribution Width 12.6 % (11.0-16.0); White Blood Count 12.2 X10*3/uL (4.8-10.8)
[2024-02-17 20:00] LABS: Alanine Aminotransferase 9 U/L (0-31); Albumin Level 4.2 g/dL (3.5-5.0); Alkaline Phosphatase 99 U/L (39-117); Anion Gap 14 (12-20); Aspartate Amino Transferase 10 U/L (5-31); Bilirubin Total 0.4 mg/dL (0.0-1.0); Blood Urea Nitrogen 9 mg/dL (9-16); Carbon Dioxide 25 mmol/L (22-29); Chloride 104 mmol/L (96-108); Creatinine Clr Calc Pharmacy 93.5; Estimated Glomerular Filt Rate > 60; Glucose Random 84 mg/dL (60-115); HCG Quantitative < 2 mIU/mL; Magnesium 2.1 mg/dL (1.6-2.6); Sodium 139 mmol/L (135-145); Total Protein 6.7 g/dL (6.5-8.0)
[2024-02-17 20:16] LABS: Influenza A PCR NEGATIVE (Negative); Influenza B PCR NEGATIVE (Negative); Resp Syncy Virus RNA Qual PCR NEGATIVE (Negative); SARS COV2 PCR INHOUSE NEGATIVE (Negative)
[2024-02-17 23:26] VITALS: BP 98/61; PULSE 84; RESP 17; TEMP 36.6; O2SAT 100
[2024-02-18 01:25] LABS: Appearance Urine Cloudy; Color Urine Yellow; Glucose Urine UA Negative (Negative); Leukocyte Esterase Urine Moderate (2+) (Negative); Nitrite Urine Negative (Negative); UMIC TRIGGER UACC YES; Urine Blood Negative (Negative); Urine Ketones Negative (Negative); Urine Protein Negative (Neg-Trace)
[2024-02-18 01:39] LABS: Bacteria Urine 4+ (None Seen); RBC Urine 0-2 /HPF (0-2); UACC Culture Trigger YES
[2024-02-18] MEDS: Dicyclomine HCl 10 MG CAPSULE 20 MG PO (01:47)
[2024-02-18 02:31] VITALS: BP 105/76; PULSE 65; RESP 17; TEMP 36.6; O2SAT 98
[2024-02-18] MEDS: cefuroxime axetiL 250 MG TABLET PO (02:32)
[2024-02-18 02:52] VITALS: BP 105/76; PULSE 65; RESP 17; TEMP 36.6; O2SAT 98
== END 2024-02-18 02:54 | disposition home or self-care (01) ==
PROVIDERS: Physician Assistant Medical; Emergency Provider Internal Medicine
DX: N39.0 Urinary tract infection, site not specified (principal); K58.9 Irritable bowel syndrome, unspecified; Z87.442 Personal history of urinary calculi; Z11.52 Encounter for screening for COVID-19; Z20.828 Contact with and (suspected) exposure to other viral communicable diseases
CPT/HCPCS: 0241U; 74176; 80053; 81001; 83735; 84702; 85025; 87086; 99284

== ENCOUNTER 2024-12-02 06:48 | Emergency (ER) | payer OTHER, SELFPAY ==
--- NOTE | ~2024-12-02 | CT_ITS ---
CLINICAL HISTORY: right sided pain, hematuria CT abdomen and pelvis without contrast Comparison: CT/REG/SR - CT ABDOMEN PELVIS WO IV CON - 02/18/24 01:33 EDT Findings: No consolidation or effusion. The unenhanced liver, gallbladder, spleen, adrenal glands and pancreas are unremarkable. There is neither urinary calculus nor obstructive uropathy bilaterally. The bladder is partially distended without focal abnormality. Uterus and adnexa are within expected limits. No bowel obstruction or free air. Scattered gas and fluid throughout nondistended small and large bowel. Few subcentimeter lymph nodes, right lower quadrant on axial 42, unchanged from prior. No suspicious bone lesion. Impression: Possible mild enteritis. No obstruction, free air, free fluid or abscess. No urinary calculus or obstructive uropathy. This document has been electronically signed by: Nicholas Patel MD on 12/02/2024 10:43:29
[2024-12-02 06:50] VITALS: BP 123/74; PULSE 100; RESP 18; TEMP 36.9; O2SAT 97; BMI 26.4
--- NOTE | 2024-12-02 07:25 | ED.GENADULT ---
HPI - General Adult General Chief complaint: Abdominal Pain Stated complaint: pain in lower abd Time Seen by Provider: 12/02/24 07:25 History of Present Illness ED Provider: Ayo MOTA narrative: The patient is a 34-year-old female who comes for evaluation of right lower abdominal or groin pain. She says that the pain began yesterday evening at around 18:00. She says that few hours before she had given her large dog a bath and she had had to lift the dog into the bathtub. At the time she did not think that she had injured herself in any way lifting the dog but now she wonders if she might have strained a muscle. She says that when the pain began at around 18:00 at came on gradually and then got worse throughout the night. She also feels that it radiates somewhat to her back. She does not have a history of kidney stones. She has no abdominal surgical history. She has not eaten anything this morning but she currently feels that she is hungry. The patient says that she last had her period 2 weeks ago. She has had some low-grade vaginal discharge since then. She has not had sexual intercourse for over a year. She thinks that she might have had a fever this morning but did not check her temperature. No dysuria, but she has had a sense of urinary urgency and possibly frequency as well. Related Data Home Medications ?Medication ?Instructions ?Recorded ?Confirmed norethindrone 1 mg-ethinyl 1 tab PO DAILY 09/22/21 08/09/22 estradiol 35 mcg tablet (Alyacen) albuterol sulfate 90 mcg/actuation 2 puff inhalation Q4H PRN wheezing 08/09/22 08/09/22 aerosol inhaler (ProAir HFA) Previous Rx's ?Medication ?Instructions ?Recorded butalbital 50 mg-acetaminophen 300 1 cap PO Q4H PRN headache #14 caps 03/22/21 mg-caffeine 40 mg-codeine 30 mg cap (Fioricet with Codeine) aluminum-mag hydroxide-simethicone 5 ml PO 5XD PRN dyspepsia #30 mL 09/21/21 200 mg-200 mg-20 mg/5 mL oral susp (Maalox Advanced) dicyclomine 20 mg tablet 20 mg PO QID PRN Abdominal 09/21/21 cramping #20 tabs famotidine 20 mg tablet (Pepcid) 20 mg PO DAILY #14 tabs 09/21/21 ondansetron HCl 4 mg tablet 4 mg PO Q8H PRN nausea and 09/21/21 (Zofran) vomiting #10 tabs azithromycin 500 mg tablet 500 mg PO DAILY 3 days #3 tabs 11/10/21 (Zithromax TRI-ANGELA) codeine 10 mg-guaifenesin 100 mg/5 10 ml PO Q6H PRN cough #237 mL 11/10/21 mL oral liquid prednisone 20 mg tablet 20 mg PO DAILY 5 days #5 tabs 07/23/22 topiramate 50 mg tablet 50 mg PO .QHS 30 days #30 tabs 08/03/22 escitalopram oxalate 10 mg tablet 10 mg PO DAILY #30 tabs 09/18/22 (Lexapro) quetiapine 25 mg tablet (Seroquel) 25 mg PO TID #45 tabs 09/18/22 cyclobenzaprine 10 mg tablet 10 mg PO Q8H #14 tabs 11/21/22 ibuprofen 800 mg tablet 800 mg PO Q8H PRN pain #14 tabs 11/21/22 ondansetron HCl 4 mg tablet 4 mg PO Q8H #14 tabs 11/21/22 lorazepam 1 mg tablet (Ativan) 1 mg PO BID PRN anxiety #6 tabs 05/26/23 diphenhydramine HCl 25 mg capsule 25 mg PO TID PRN allergic reaction 06/29/23 (Benadryl) #20 caps ketorolac 10 mg tablet 10 mg PO TID PRN pain 5 days #15 06/29/23 tabs cefuroxime axetil 250 mg tablet 250 mg PO BID 7 days #14 tabs 02/18/24 dicyclomine 20 mg tablet 20 mg PO QID PRN abdominal pain 02/18/24 #20 tabs ibuprofen 400 mg tablet 400 mg PO Q6H PRN pain #14 tabs 12/02/24 sulfamethoxazole 800 1 tab PO BID #14 tabs 12/02/24 mg-trimethoprim 160 mg tablet (Bactrim DS) Allergies Allergy/AdvReac Type Severity Reaction Status Date / Time amoxicillin [AMOXICILLIN] Allergy Unknown HIVES Verified 12/02/24 06:53 Penicillins Allergy Rash Verified 12/02/24 06:53 Review of Systems Review of Systems: Yes all other systems are reviewed and are negative [facility] Past Medical History Medical History Epilepsy Social History Social History Alcohol intake: never Patient Tobacco Use Status: Never used Tobacco Physical Exam ED Vital Signs: Vital Signs - 24 hr 12/02/24 06:50 12/02/24 09:51 12/02/24 11:00 Temperature 98.4 F 98.0 F 98.0 F Pulse Rate 100 85 85 Respiratory Rate 18 20 20 Blood Pressure 123/74 106/71 106/71 Pulse Oximetry 97 94 94 Oxygen Delivery Method Room Air Room Air Room Air BMI result Body Mass Index 26.4 Const Other: The patient is awake and alert. She looks mildly uncomfortable but not obviously acutely ill or toxic. HENMT Other: Face is symmetrical. Mucous membranes moist. Eyes General: appearance normal, both eyes and all related structures Neck Neck: Yes full ROM Resp Effort & Inspection: normal respiratory effort Auscultation: clear to auscultation bilaterally Cardio Rhythm: regular rhythm Heart sounds: S1 normal heart sound present and S2 normal heart sound present GI Other: There is some right lower quadrant tenderness fairly deep in the right lower abdomen. No rebound or guarding. There may be some subtle tenderness of the right kidney with bimanual palpation of the kidney. Back/Spine/Pelvis Other: There is a suggestion of some right-sided CVA percussion tenderness. Skin Other: Skin is dry and unremarkable Neuro Other: The patient is awake and alert with a normal mental status. Cranial nerves are grossly intact. She moves extremities normally. She seems grossly neurologically intact. Extrem Other: No peripheral edema Medications Administered Discontinued Medications Generic Name Dose Route Start Last Admin Trade Name Freq PRN Reason Stop Dose Admin Ketorolac Tromethamine 30 mg 12/02/24 07:59 12/02/24 08:31 Ketorolac Tromethamine 30 Mg/Ml Vial IM 12/02/24 08:00 30 mg ONCE ONE Administration Trimethoprim/Sulfamethoxazole 1 tab 12/02/24 10:53 12/02/24 11:10 Sulfamethox/Trimeth 800/160 Tablet PO 12/02/24 10:54 Not Given ONCE ONE Medical Decision Making Medical Decision Making MDM Narrative: The patient is a 34-year-old who presents complaining of fairly low right lower quadrant pain that she says radiates to the right flank. She also felt chilled today. She has some subtle complaint of urinary urgency but no marco dysuria. The patient has a white count of 7.3 with a neutrophil count of 63.9, 19.5% lymphocytes, 12% monocytes. CRP is somewhat elevated at 2.7. Lipase is normal. LFTs unremarkable. A noncontrast CT of the abdomen and pelvis suggests possible mild enteritis but no other significant acute process. The patient's COVID swab was positive. Her urinalysis shows 3+ blood, moderate leukocyte esterase, 21-50 white cells. The patient felt better after an injection of ketorolac. Her urinalysis is potentially consistent with a UTI. Her urinary symptoms are minimal but not absent. I do not have a very high suspicion for possible pyelonephritis. I do not think the patient would benefit much from Paxlovid. The patient will be started on Bactrim for what may be a UTI. Given that she has some right flank pain I will prescribe a 7 day course. She felt well enough for discharge. Lab Data 12/02/24 07:15 12/02/24 07:15 Labs: Lab Results 12/02/24 12/02/24 Range/Units 07:15 08:11 WBC 7.3 (4.8-10.8) X10*3/uL RBC 4.70 (4.20-5.50) X10*6/uL Hgb 13.9 (12.0-16.0) g/dl Hct 40.5 (37.0-47.0) % MCV 86.2 (80.0-98.0) fL MCH 29.6 (27.0-33.0) pg MCHC 34.3 (31.0-35.0) g/dl RDW 12.5 (11.0-16.0) % Plt Count 252 (160-400) X10*3/uL MPV 10.8 (9.4-12.3) fL Immature Gran % (Auto) 0.4 (0.0-0.4) % Neut % (Auto) 63.9 (45-73) % Lymph % (Auto) 19.5 L (20-40) % [place] % (Auto) 12.0 H (2-11) % Eos % (Auto) 3.4 (0-4) % Baso % (Auto) 0.8 (0-2) % Lymph # (Auto) 1.4 (1.2-4.9) X10*3/uL [place] # (Auto) 0.9 (0.1-1.2) X10*3/uL Eos # (Auto) 0.3 (0.0-0.4) X10*3/uL Baso # (Auto) 0.1 (0.0-0.2) X10*3/uL Abs Immat Gran (auto) 0.03 (0.00-0.03) X10*3/uL Absolute Neuts (auto) 4.7 (2.0-8.3) x10*3/uL Absolute Nucleated RBC 0.000 (0.0-0.012) X10*3/uL Nucleated RBC % (auto) 0.0 (0.0-0.2) /100WBC Sodium 137 (135-145) mmol/L Potassium 3.6 (3.3-5.1) mmol/L Chloride 110 H (96-108) mmol/L Carbon Dioxide 20 L (22-29) mmol/L Anion Gap 11 L (12-20) BUN 7 L (9-16) mg/dL Creatinine 0.69 (0.5-1.4) mg/dL Estim Creat Clear Calc 97.1 Estimated GFR > 60 Random Glucose 97 (60-115) mg/dL Calcium 8.4 D (8.4-10.2) mg/dL Total Bilirubin 0.3 (0.0-1.0) mg/dL AST 16 (5-31) U/L ALT 7 (0-31) U/L Alkaline Phosphatase 88 (39-117) U/L C-Reactive Protein 2.74 H (< or = 0.50) mg/dL Total Protein 5.9 L (6.5-8.0) g/dL Albumin 3.7 (3.5-5.0) g/dL Lipase 29 (8-78) U/L Urine Color Yellow Urine Appearance Cloudy Urine pH 7.0 (5.0-9.0) Ur Specific [place] 1.020 (1.005-1.025) Urine Protein Negative (Neg-Trace) mg/dL Urine Glucose (UA) Negative (Negative) mg/dL Urine Ketones Negative (Negative) mg/dL Urine Blood Large (3+) H (Negative) Urine Nitrite Negative (Negative) Ur Leukocyte Esterase Moderate (2+) H (Negative) Urine RBC 0-2 (0-2) /HPF Urine WBC 21-50 H (0-5) /HPF Ur Squamous Epith Cells 6-10 (0-2) /HPF Urine Bacteria 4+ (None Seen) Hyaline Casts 3-5 (0-2) /LPF Urine Test NEGATIVE (NEGATIVE) Influenza Type A (PCR) NEGATIVE (Negative) Influenza Type B (PCR) NEGATIVE (Negative) RSV RNA Qual (PCR) NEGATIVE (Negative) SARS-CoV-2 RNA (RT-PCR) POSITIVE A (Negative) Discharge Plan Discharge Clinical Impression: COVID-19, Urinary tract infection, Right sided abdominal pain Patient Disposition: Home, Self-Care Additional Instructions: You have tested positive for COVID today. Please plan on isolating yourself as much as you can for the next 5 days. You may also have a urinary tract infection. You has been started on a course of antibiotics for a possible urinary tract infection. Please take this medication 2 times a day as prescribed. Please complete the entire course of the antibiotics. Next dose this evening. You may use acetaminophen (Tylenol) as needed for pain or discomfort. You may take 2 extra-strength acetaminophen up to 3 times a day. There is also a prescription for ibuprofen that was sent to your pharmacy that you may use every 6 hours as needed for pain. The CT scan of your abdomen and pelvis did not show any concerning findings. Drink a lot of fluids. Please continue your efforts to get a primary care doctor. If you feel significantly worse at any time please return to the emergency room. Prescriptions: New sulfamethoxazole-trimethoprim [Bactrim DS] 800-160 mg tablet 1 tab PO BID Qty: 14 0RF ibuprofen 400 mg tablet 400 mg PO Q6H PRN (Reason: pain) Qty: 14 0RF No Action [id number]-tlb-cod [Fioricet with Codeine] 60-054-29-30 mg capsule 1 cap PO Q4H PRN (Reason: headache) Qty: 14 0RF dicyclomine 20 mg tablet 20 mg PO QID PRN (Reason: Abdominal cramping) Qty: 20 0RF ondansetron HCl [Zofran] 4 mg tablet 4 mg PO Q8H PRN (Reason: nausea and vomiting) Qty: 10 0RF alum-mag hydroxide-simeth [Maalox Advanced] 200-200-20 mg/5 mL suspension 5 ml PO 5XD PRN (Reason: dyspepsia) Qty: 30 0RF Rx Instructions: administer between meals and at bedtime famotidine [Pepcid] 20 mg tablet 20 mg PO DAILY Qty: 14 0RF escitalopram oxalate [Lexapro] 10 mg tablet 10 mg PO DAILY Qty: 30 0RF quetiapine [Seroquel] 25 mg tablet 25 mg PO TID Qty: 45 0RF ondansetron HCl 4 mg tablet 4 mg PO Q8H Qty: 14 0RF ibuprofen 800 mg tablet 800 mg PO Q8H PRN (Reason: pain) Qty: 14 0RF cyclobenzaprine 10 mg tablet 10 mg PO Q8H Qty: 14 0RF Alyacen 1/35 (28) 1-35 mg-mcg tablet 1 tab PO DAILY azithromycin [Zithromax TRI-ANGELA] 500 mg tablet 500 mg PO DAILY 3 Days Qty: 3 0RF codeine-guaifenesin 10-100 mg/5 mL liquid 10 ml PO Q6H PRN (Reason: cough) Qty: 237 0RF topiramate 50 mg tablet 50 mg PO .QHS 30 Days Qty: 30 0RF ketorolac 10 mg tablet 10 mg PO TID PRN (Reason: pain) 5 Days Qty: 15 0RF diphenhydramine HCl [Benadryl] 25 mg capsule 25 mg PO TID PRN (Reason: allergic reaction) Qty: 20 0RF lorazepam [Ativan] 1 mg tablet 1 mg PO BID PRN (Reason: anxiety) Qty: 6 0RF cefuroxime axetil 250 mg tablet 250 mg PO BID 7 Days Qty: 14 0RF dicyclomine 20 mg tablet 20 mg PO QID PRN (Reason: abdominal pain) Qty: 20 0RF prednisone 20 mg tablet 20 mg PO DAILY 5 Days Qty: 5 0RF albuterol sulfate [ProAir HFA] 90 mcg/actuation HFA aerosol inhaler 2 puff inhalation Q4H PRN (Reason: wheezing) Interventions: ED Discharge Assessment Last Done: 12/02/24 11:00 Discharge Date/Time: 12/02/24 11:09 Print Language: German
[2024-12-02 07:40] LABS: Hematocrit 40.5 % (37.0-47.0); Hemoglobin 13.9 g/dl (12.0-16.0); Mean Corpuscular HGB Conc 34.3 g/dl (31.0-35.0); Mean Corpuscular Hemoglobin 29.6 pg (27.0-33.0); Mean Corpuscular Volume 86.2 fL (80.0-98.0); Mean Platelet Volume 10.8 fL (9.4-12.3); Platelet Count 252 X10*3/uL (160-400); Red Cell Distribution Width 12.5 % (11.0-16.0); White Blood Count 7.3 X10*3/uL (4.8-10.8)
[2024-12-02 07:51] LABS: Alanine Aminotransferase 7 U/L (0-31); Albumin Level 3.7 g/dL (3.5-5.0); Alkaline Phosphatase 88 U/L (39-117); Anion Gap 11 (12-20); Aspartate Amino Transferase 16 U/L (5-31); Bilirubin Total 0.3 mg/dL (0.0-1.0); Blood Urea Nitrogen 7 mg/dL (9-16); Calcium 8.4 mg/dL (8.4-10.2); Carbon Dioxide 20 mmol/L (22-29); Chloride 110 mmol/L (96-108); Creatinine Clr Calc Pharmacy 97.1; Estimated Glomerular Filt Rate > 60; Glucose Random 97 mg/dL (60-115); Lipase 29 U/L (8-78); Potassium 3.6 mmol/L (3.3-5.1); Sodium 137 mmol/L (135-145); Total Protein 5.9 g/dL (6.5-8.0)
[2024-12-02 08:02] LABS: MANUAL DIFF FLAG NO
[2024-12-02 08:04] LABS: Basophils Absolute Auto 0.1 X10*3/uL (0.0-0.2); Basophils Percent Auto 0.8 % (0-2); Eosinophils Absolute Auto 0.3 X10*3/uL (0.0-0.4); Eosinophils Percent Auto 3.4 % (0-4); Imm Gran Abs Auto 0.03 X10*3/uL (0.00-0.03); Imm Gran Pct Auto 0.4 % (0.0-0.4); Lymphocytes Absolute Auto 1.4 X10*3/uL (1.2-4.9); Lymphocytes Percent Auto 19.5 % (20-40); Monocytes Absolute Auto 0.9 X10*3/uL (0.1-1.2); Neutrophils Absolute Auto 4.7 x10*3/uL (2.0-8.3); Neutrophils Percent Auto 63.9 % (45-73)
--- NOTE | 2024-12-02 08:11 | PC.NURSE ---
1:1 assist needed to ambulate to the restroom d/t increased pain - urine obtained/sent to lab. will administer medication when u-preg results are back. plan of care ongoing.
[2024-12-02 08:18] LABS: Appearance Urine Cloudy; Color Urine Yellow; Glucose Urine UA Negative (Negative); Leukocyte Esterase Urine Moderate (2+) (Negative); Nitrite Urine Negative (Negative); UMIC TRIGGER UACC YES; Urine Blood Large (3+) (Negative); Urine Ketones Negative (Negative); Urine Protein Negative (Neg-Trace)
[2024-12-02 08:20] LABS: UPreg QC Valid YES; Urine Pregnancy NEGATIVE (NEGATIVE)
[2024-12-02 08:23] LABS: C Reactive Protein 2.74 mg/dL (< or = 0.50)
[2024-12-02 08:30] LABS: Bacteria Urine 4+ (None Seen); RBC Urine 0-2 /HPF (0-2); UACC Culture Trigger YES; WBC Urine 21-50 /HPF (0-5)
[2024-12-02] MEDS: Ketorolac Tromethamine 30 MG/ML VIAL IM (08:31)
--- NOTE | 2024-12-02 08:31 | PC.NURSE ---
medication administered per provider order. effectiveness pending.
[2024-12-02 08:34] LABS: Influenza A PCR NEGATIVE (Negative); Influenza B PCR NEGATIVE (Negative); Resp Syncy Virus RNA Qual PCR NEGATIVE (Negative); SARS COV2 PCR INHOUSE POSITIVE (Negative)
--- NOTE | 2024-12-02 08:52 | PC.NURSE ---
pt noted to be covid +, precautions now in place. pt remains on RA w/o difficulty. no sob/wob noted. respirations even/unlabored. plan of care ongoing. call serra placed within reach.
[2024-12-02 09:51] VITALS: BP 106/71; PULSE 85; RESP 20; TEMP 36.7; O2SAT 94
[2024-12-02 11:00] VITALS: BP 106/71; PULSE 85; RESP 20; TEMP 36.7; O2SAT 94
== END 2024-12-02 11:09 | disposition home or self-care (01) ==
PROVIDERS: Emergency Provider Emergency Medicine
DX: U07.1 COVID-19 (principal); N39.0 Urinary tract infection, site not specified; R10.31 Right lower quadrant pain
CPT/HCPCS: 0241U; 36415; 74176; 80053; 81001; 81025; 83690; 85025; 85027; 86140; 87086; 96372; 99284; J1885

== ENCOUNTER → 2024-12-02 08:30 | Outpatient (BNV) | payer OTHER, SELFPAY | PROVIDERS: Emergency Provider Emergency Medicine; Visit Provider Radiology Vascular & Interventional Radiology | DX: K52.9 Noninfective gastroenteritis and colitis, unspecified (principal) | CPT/HCPCS: 74176 ==